=== PATIENT | male | born 1945 | race Caucasian/White ===

== ENCOUNTER → 2016-06-04 | Outpatient (CLI) | payer OTHER ==
[~2016-06-04] MED LIST: ATOR-22 PO; CEFA500C2 PO; CLOP1TAB15 PO; DOCU100C31 PO; LISI-789 PO; MAGN250T8 PO; METF1TAB53 PO; METO25TA3 PO; METO50TA7 PO; MISCCAP80 PO; MULTCAP33 PO; OMEG1CAP71 PO; OXYC-57 PO; PANT40TA PO; SENN8.6T13 PO; TAMS0.4C38 PO
[2016-06-04 12:29] LABS: ESTIMATED AVERAGE GLUCOSE 131 mg/dl; HA1C FLAG Normal (Normal)
== END | disposition home or self-care (01) ==
LOC: C.LAB1850 10:13
PROVIDERS: ATTEND Internal Medicine
DX: E78.00 Pure hypercholesterolemia, unspecified (principal); E11.9 Type 2 diabetes mellitus without complications

== ENCOUNTER → 2016-07-31 | Outpatient (CLI) | payer OTHER ==
[2016-07-31 17:37] LABS: BASO % 0.2 %; BASO ABS # 0.01 K/uL (0-0.2); COMPLETE YES; EOS % 1.1 %; HEMATOCRIT 38.5 % (42-52); IG% 0.4 %; LYMPH % 21.4 %; MEAN CELL VOLUME 91.9 fL (80-100); MEAN CORPUSCULAR HEMOGLOBIN 29.6 pg (25-34); MEAN CORPUSCULAR HGB CONC 32.2 g/dl (32-36); MEAN PLATELET VOLUME 10.2 fL (7.4-10.4); MONO % 13.5 %; NEUT % 63.4 %; PLATELET COUNT 304 K/uL (130-400); RED BLOOD COUNT 4.19 M/uL (4.7-6.1); WHITE BLOOD COUNT 5.62 K/uL (4.8-10.8)
[2016-07-31 17:39] LABS: BLOOD UREA NITROGEN 12 mg/dl (7-18); GLUCOSE 90 mg/dl (70-99)
[2016-07-31 17:40] LABS: ALT/SGPT 12 U/L (12-78); AST/SGOT 13 U/L (15-37); BUN/CREATININE RATIO 13.2 (10-20); CARBON DIOXIDE 28 mmol/L (21-32); CHLORIDE 105 mmol/L (98-107); POTASSIUM 4.1 mmol/L (3.5-5.1); SODIUM 141 mmol/L (136-145)
[2016-07-31 17:44] LABS: ALB/GLOB RATIO 0.7 (0.9-2); ALKALINE PHOSPHATASE 65 U/L (45-117); C-REACTIVE PROTEIN 2.42 mg/dl (0-0.29)
== END | disposition home or self-care (01) ==
LOC: C.LABPBG 14:22
PROVIDERS: ATTEND Internal Medicine Infectious Disease
DX: T84.59XA Infection and inflammatory reaction due to other internal joint prosthesis, initial encounter (principal); Y83.1 Surgical operation with implant of artificial internal device as the cause of abnormal reaction of the patient, or of later complication, without mention of misadventure at the time of the procedure; Z96.659 Presence of unspecified artificial knee joint

== ENCOUNTER → 2016-08-06 | Outpatient (CLI) | payer OTHER ==
[2016-08-06 18:22] LABS: URINE APPEARANCE CLEAR (CLEAR); URINE BILIRUBIN NEG (NEG); URINE COLOR YELLOW; URINE EPITHELIAL CELL AUTO 0-5 /lpf (0-5); URINE NITRITE NEG (NEG); URINE SPECIFIC GRAVITY 1.022 (1.000-1.030); UROBILINOGEN NEG (NEG)
[2016-08-06 18:28] LABS: MANUAL MICROSCOPIC REQUIRED? NO; REVIEW REQ? YES
== END | disposition home or self-care (01) ==
LOC: C.LABPBG 14:13
PROVIDERS: ATTEND Internal Medicine Infectious Disease
DX: N20.0 Calculus of kidney (principal)

== ENCOUNTER → 2016-08-11 | Outpatient (CLI) | payer OTHER ==
--- NOTE | 2016-08-11 10:24 | DIAGNOSTIC IMAGING REPORT ---
RENAL ULTRASOUND HISTORY: R10.9 Right flank pain COMPARISON: Abdomen and pelvis CT 11/02/2015. FINDINGS: Right kidney: 12.4 cm. No hydronephrosis. Moderate cortical thinning/scarring. Multiple cysts with the largest in the upper pole measuring 6 cm. Left kidney: 13.7 cm. No hydronephrosis. Moderate cortical thinning/scarring. Multiple cysts with the largest in the upper pole measuring 8.2 cm. Bladder: No bladder wall thickening. The bilateral ureteral jets were identified. Not well distended. Prostate gland is mildly enlarged. IMPRESSION: No hydronephrosis. Multiple bilateral renal cysts. Electronically signed by: Teo Chandler M.D. 08/11/2016 10:23 AM Dictated Date/Time: 08/11/2016 10:10 AM
== END ==
LOC: C.ULTR 09:34
PROVIDERS: ATTEND Internal Medicine
DX: R10.9 Unspecified abdominal pain (principal)

== ENCOUNTER → 2016-08-15 | Outpatient (CLI) | payer OTHER ==
[2016-08-15 16:40] LABS: BASO % 0.4 %; BASO ABS # 0.03 K/uL (0-0.2); COMPLETE YES; EOS % 1.3 %; HEMATOCRIT 37.4 % (42-52); IG% 0.1 %; LYMPH % 18.8 %; MEAN CELL VOLUME 91.9 fL (80-100); MEAN CORPUSCULAR HGB CONC 32.6 g/dl (32-36); MEAN PLATELET VOLUME 10.9 fL (7.4-10.4); MONO % 11.4 %; PLATELET COUNT 247 K/uL (130-400); RED BLOOD COUNT 4.07 M/uL (4.7-6.1)
== END | disposition home or self-care (01) ==
LOC: C.LABPBG 13:51
PROVIDERS: ATTEND Physician Assistant
DX: R70.0 Elevated erythrocyte sedimentation rate (principal)

== ENCOUNTER 2016-08-30 14:34 | Emergency (ER) | payer OTHER ==
[~2016-08-30] VITALS: Ht 179.1 cm; Wt 95.3 kg
[~2016-08-30 14:34] MED LIST changes: -DOCU100C31 PO; -LISI-789 PO; -MAGN250T8 PO; -METO25TA3 PO; -OMEG1CAP71 PO; +SENN1TAB80 PO; -SENN8.6T13 PO
[2016-08-30 14:41] VITALS: TEMP 37.2; Ht 179.1 cm; Wt 95.3 kg
--- NOTE | 2016-08-30 15:59 | EMERGENCY ROOM VISIT NOTE ---
History Report prepared by Radha: Alfonzo Johnson Under the Supervision of: Dr. Subhash Orozco M.D. First contact with patient: 15:11 Chief Complaint: WRIST PAIN Stated Complaint: L WRIST SWELLING AND PAIN History of Present Illness The patient is a 71 year old male who presents to the Emergency Room with complaints of worsening left wrist swelling beginning three days prior to arrival. He currently rates his discomfort as a 7/10 in severity. The patient associates limited range of movement of left fingers secondary to the pain and swelling and numbness in his left hand fingers with today's symptoms. He states movement worsens his symptoms. The patient notes he had fallen out of a tree as a child, in which, he injured his left wrist. He states the left wrist has bothered him with some activity, but the discomfort had always subsided. The patient denies doing any activity out of the ordinary or repetitive movement. He notes a history of a septic right knee joint status post replacement a year ago. The patient states he sees an infectious disease doctor for high ESR. He notes he is due to see a security guard supervisor. The patient denies a fever, chills, urinary symptoms, and history of gout. 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 A total of 10 systems reviewed and were otherwise negative. Past Medical & Surgical Medical Problems: (1) Hyperlipidemia (2) Kidney stones (3) MA (myocardial infarction) (4) Pre-diabetes (5) septic right TKA (6) Umbilical hernia Surgical Problems: (1) S/p bilateral carpal tunnel release (2) S/P CABG (coronary artery bypass graft) (3) S/P right knee surgery (4) S/P rotator cuff surgery Old medical records were reviewed. Nurse's notes were reviewed and I agree with. Family History Cancer Diabetes mellitus Gallbladder disease Heart disease Hypertension Kidney disease Kidney stones Social History Smoking Status: Never Smoker Alcohol Use: none Drug Use: none Marital Status: Housing Status: lives with family Occupation Status: retired Current/Historical Medications Scheduled Atorvastatin (Lipitor), 20 MG PO QAM Cefadroxil (Duricef), 500 MG PO BID Clopidogrel (Plavix), 75 MG PO DAILY Docusate Sodium (Docusate Sodium), 100 MG PO BID Lisinopril (Zestril), 2.5 MG PO DAILY Magnesium Oxide (Mg Supplement (Magnesium), 250 MG PO BID Metformin Hcl (Glucophage Ext Rel), 1,000 MG PO QAM Metoprolol Succ (Toprol Xl) (Toprol-Xl), 25 MG PO DAILY Multiple Vitamins W/ Minerals (Preservision Areds), 1 CAP PO BID [place] 3 Fatty Acids-[place] 6 Fa ([place] 3-6-9 Complex), 1 CAP PO DAILY Probiotic Product (Probiotic), 1 TAB PO BID Allergies Coded Allergies: Moxifloxacin (Verified Allergy, Intermediate, ?, 12/07/15) Heparin (Verified Adverse Reaction, Intermediate, discolored skin; brown, 12/07/15) Physical Exam Vital Signs Date Time Temp Pulse Resp B/P Pulse Ox O2 Delivery O2 Flow Rate FiO2 08/30/16 18:26 77 20 127/55 98 Room Air 08/30/16 17:18 65 20 136/52 100 Room Air 08/30/16 14:41 37.2 71 18 153/69 96 Room Air Physical Exam General: Non-ill appearing. Older female. HEENT: Normal cephalic atraumatic. Pupils are equal round and reactive to light. Sclerae anicteric. Extraocular movements are intact. Oropharynx is pink with moist mucous membranes. No swelling of the mouth lips or tongue. Neck: Supple with a midline trachea. No meningeal signs or stiffness, no JVD or bruits. No Stridor. Chest: Clear to auscultation bilaterally. No wheezes or rhonchi. No increased work of breathing. Heart: regular rate and rhythm. Abdomen: Soft nontender, nondistended without rebound guarding or rigidity. Extremities: Moderate amount of swelling to the left wrist, minimal pinkish discoloration. Limitation of movement secondary to pain but does have full range of motion. Good capillary refill. Left elbow is normal. No calf tenderness or assymetry Spine/Back. Non tender to palpation. No CVA tenderness Skin: Good turgor without rashes. Neurologic exam: Cranial nerves two through 12 are intact. Motor and sensation are intact and symmetrical throughout. Medical Decision & Procedures ER Provider Diagnostic Interpretation: Radiology results as stated below per my review and radiologist interpretation: LEFT WRIST MIN 3 VIEWS ROUTINE CLINICAL HISTORY: Left wrist pain COMPARISON: None. DISCUSSION: There are advanced arthritic changes present. There is widening of the scapholunate distance. There is ulnar minus variance. There is chondrocalcinosis. There are multiple small bony fragments adjacent to the dorsal aspect of the mid carpus. IMPRESSION: Moderately advanced arthritic change. Chondrocalcinosis. Ulnar minus variance. Probable disruption of the scapholunate ligament. No acute fractures. Electronically signed by: Rahul Baird M.D. 08/30/2016 4:44 PM ULTRASOUND LEFT VENOUS DOPPLER UPR EXT UNILAT CLINICAL HISTORY: Left upper extremity swelling COMPARISON STUDY: No previous studies for comparison. FINDINGS: No intraluminal thrombus was visualized. The internal jugular, subclavian, axillary, cephalic, brachial, basilic, radial, and ulnar veins were patent. There is soft tissue edema within the left shoulder and wrist region. IMPRESSION: No evidence of left upper extremity DVT Electronically signed by: Rahul Baird M.D. 08/30/2016 5:06 PM Laboratory Results 08/30/16 16:20 Red Blood Count 4.03, Mean Corpuscular Volume 89.6, Mean Corpuscular Hemoglobin 29.3, Mean Corpuscular Hemoglobin Concent 32.7, Mean Platelet Volume 9.3, Neutrophils (%) (Auto) 71.6, Lymphocytes (%) (Auto) 14.3, Monocytes (%) (Auto) 13.0, Eosinophils (%) (Auto) 0.9, Basophils (%) (Auto) 0.1, Neutrophils # (Auto ) 5.41, Lymphocytes # (Auto) 1.08, Monocytes # (Auto) 0.98, Eosinophils # (Auto ) 0.07, Basophils # (Auto) 0.01 08/30/16 16:20 Test 08/30/16 16:20 White Blood Count 7.56 K/uL (4.8-10.8) Red Blood Count 4.03 M/uL (4.7-6.1) Hemoglobin 11.8 g/dL (14.0-18.0) Hematocrit 36.1 % (42-52) Mean Corpuscular Volume 89.6 fL (80-100) Mean Corpuscular Hemoglobin 29.3 pg (25-34) Mean Corpuscular Hemoglobin Concent 32.7 g/dl (32-36) Platelet Count 280 K/uL (130-400) Mean Platelet Volume 9.3 fL (7.4-10.4) Neutrophils (%) (Auto) 71.6 % Lymphocytes (%) (Auto) 14.3 % Monocytes (%) (Auto) 13.0 % Eosinophils (%) (Auto) 0.9 % Basophils (%) (Auto) 0.1 % Neutrophils # (Auto) 5.41 K/uL (1.4-6.5) Lymphocytes # (Auto) 1.08 K/uL (1.2-3.4) Monocytes # (Auto) 0.98 K/uL (0.11-0.59) Eosinophils # (Auto) 0.07 K/uL (0-0.5) Basophils # (Auto) 0.01 K/uL (0-0.2) RDW Standard Deviation 52.0 fL (36.4-46.3) RDW Coefficient of Variation 15.9 % (11.5-14.5) Immature Granulocyte % (Auto) 0.1 % Immature Granulocyte # (Auto) 0.01 K/uL (0.00-0.02) Erythrocyte Sedimentation Rate 89 mm/hr (0-14) Anion Gap 8.0 mmol/L (3-11) Est Creatinine Clear Calc Drug Dose 84.5 ml/min Estimated GFR () 96.6 Estimated GFR (Non- 83.3 BUN/Creatinine Ratio 18.5 (10-20) Uric Acid 5.2 mg/dl (2.6-7.2) Calcium Level 9.0 mg/dl (8.5-10.1) Total Bilirubin 0.3 mg/dl (0.2-1) Direct Bilirubin 0.1 mg/dl (0-0.2) Aspartate Amino Transf (AST/SGOT) 14 U/L (15-37) Alanine Aminotransferase (ALT/SGPT) 11 U/L (12-78) Alkaline Phosphatase 68 U/L (45-117) C-Reactive Protein 4.93 mg/dl (0-0.29) Total Protein 7.5 gm/dl (6.4-8.2) Albumin 3.1 gm/dl (3.4-5.0) Lipase 183 U/L (73-393) Laboratory studies as stated above per my review. ED Course 1545: Past medical records reviewed. The patient was evaluated in room C3, and a complete history and physical examination were performed. 1716: Reevaluated the patient at this time, and he is doing well. 173: I spoke to Dr. Jonas [facility] (Orthopedic Surgery) about the patient's case, and he recommended putting the patient in a splint. He can see the patient in the office for further followup. 1810: Upon reevaluation, the patient is doing well. I discussed the results and treatment plan with him. He verbalized agreement of the treatment plan. The patient was discharged home. Medical Decision Differentials include, but are not limited to; arthritis, rheumatologic process , infection, injury, electrolyte or metabolic abnormalities. This patient comes in as described above. He was placed in room C3. He's had some pain and swelling of his wrist for several days. he has no fever or chills or systemic complaints. No numbness or weakness. he does have some pain with movement and some stiffness. IV access was established, x-ray was obtained and multiple blood tests was obtained. He has no elevation of his white count. His sedimentation rate and CRP are elevated however these are elevated chronically. he's been followed for this the CRP is somewhat more elevated however. X-ray shows no acute fracture. He has findings consistent with pseudogout which certainly could explain his symptoms. He has no neurologic deficits or any evidence of compartment syndrome. His wrist is not significantly red or warm. I did discuss case with Dr. Jonas who recommends we immobilized him and they can see him Thursday or Thursday and the patient will use anti-inflammatories like ibuprofen return if: Increasing pain, worsening of symptoms, fever or chills, any new problems or concerns. He is happy with plan and discharged to home. Consults Time Called: 1733 Consulting Physician: Dr. Jonas, [facility] (Orthopedic Surgery) Returned Call: [address] Jonas [facility] (Orthopedic Surgery) about the patient's case, and he recommended putting the patient in a splint. He can see the patient in the office for further followup. Impression Primary Impression: Wrist pain, left Additional Impression: Pseudogout Scribe Attestation The scribe's documentation has been prepared under my direction and personally reviewed by me in its entirety. I confirm that the note above accurately reflects all work, treatment, procedures, and medical decision making performed by me. Departure Information Dispostion Home / Self-Care Referrals Aaron Ge M.D. (PCP) Forms HOME CARE DOCUMENTATION FORM, IMPORTANT VISIT INFORMATION, WORK / SCHOOL INSTRUCTIONS Patient Instructions My [facility] Additional Instructions Rest. Drink plenty of fluids. Use wrist lacer splint. Ice intermittently. Use an anti-inflammatory such as ibuprofen Return if: Increasing pain, fever chills, numbness weakness, worsening symptoms , any new problems or concerns Follow-up with your doctor or orthopedist's/Dr. Jonas on Thursday for recheck. Problem Qualifiers
[2016-08-30] MEDS ORDERED: LISI-789 PO (16:16)
[2016-08-30] MEDS ORDERED: MAGN250T8 PO (16:20)
[2016-08-30] MEDS ORDERED: METO25TA3 PO (16:21)
[2016-08-30] MEDS ORDERED: DOCU100C31 PO (16:23)
[2016-08-30] MEDS ORDERED: OMEG1CAP71 PO (16:24)
[2016-08-30 16:31] LABS: BASO % 0.1 %; BASO ABS # 0.01 K/uL (0-0.2); COMPLETE YES; EOS % 0.9 %; HEMATOCRIT 36.1 % (42-52); IG% 0.1 %; LYMPH % 14.3 %; LYMPH ABS # 1.08 K/uL (1.2-3.4); MEAN CELL VOLUME 89.6 fL (80-100); MEAN CORPUSCULAR HEMOGLOBIN 29.3 pg (25-34); MEAN CORPUSCULAR HGB CONC 32.7 g/dl (32-36); MEAN PLATELET VOLUME 9.3 fL (7.4-10.4); NEUT % 71.6 %; PLATELET COUNT 280 K/uL (130-400); RED BLOOD COUNT 4.03 M/uL (4.7-6.1); WHITE BLOOD COUNT 7.56 K/uL (4.8-10.8)
--- NOTE | 2016-08-30 16:46 | DIAGNOSTIC IMAGING REPORT ---
LEFT WRIST MIN 3 VIEWS ROUTINE CLINICAL HISTORY: Left wrist pain COMPARISON: None. DISCUSSION: There are advanced arthritic changes present. There is widening of the scapholunate distance. There is ulnar minus variance. There is chondrocalcinosis. There are multiple small bony fragments adjacent to the dorsal aspect of the mid carpus. IMPRESSION: Moderately advanced arthritic change. Chondrocalcinosis. Ulnar minus variance. Probable disruption of the scapholunate ligament. No acute fractures. Electronically signed by: Rahul aBird M.D. 08/30/2016 4:44 PM Dictated Date/Time: 08/30/2016 4:42 PM
[2016-08-30 16:55] LABS: BUN/CREATININE RATIO 18.5 (10-20); C-REACTIVE PROTEIN 4.93 mg/dl (0-0.29); CREATININE 0.91 mg/dl (0.60-1.40); URIC ACID 5.2 mg/dl (2.6-7.2)
--- NOTE | 2016-08-30 17:08 | DIAGNOSTIC IMAGING REPORT ---
ULTRASOUND LEFT VENOUS DOPPLER UPR EXT UNILAT CLINICAL HISTORY: Left upper extremity swelling COMPARISON STUDY: No previous studies for comparison. FINDINGS: No intraluminal thrombus was visualized. The internal jugular, subclavian, axillary, cephalic, brachial, basilic, radial, and ulnar veins were patent. There is soft tissue edema within the left shoulder and wrist region. IMPRESSION: No evidence of left upper extremity DVT Electronically signed by: Rahul Baird M.D. 08/30/2016 5:06 PM Dictated Date/Time: 08/30/2016 5:03 PM
[2016-08-30 17:37] LABS: POTASSIUM 4.2 mmol/L (3.5-5.1)
[2016-08-30 18:26] VITALS: BP 127/55; PULSE 77; O2SAT 98
== END 2016-08-30 18:50 | disposition home or self-care (01) ==
LOC: C.EDB 14:36 → C.EDC 18:50
DX: M25.532 Pain in left wrist (principal); M10.9 Gout, unspecified; E78.5 Hyperlipidemia, unspecified; I25.2 Old myocardial infarction; R73.03 Prediabetes; Z87.442 Personal history of urinary calculi; Z95.1 Presence of aortocoronary bypass graft; Z98.890 Other specified postprocedural states; Z79.84 Long term (current) use of oral hypoglycemic drugs; Z79.899 Other long term (current) drug therapy; Z88.8 Allergy status to other drugs, medicaments and biological substances; Z80.9 Family history of malignant neoplasm, unspecified; Z83.3 Family history of diabetes mellitus; Z83.79 Family history of other diseases of the digestive system; Z82.49 Family history of ischemic heart disease and other diseases of the circulatory system; Z84.1 Family history of disorders of kidney and ureter

== ENCOUNTER → 2016-09-22 | Outpatient (CLI) | payer OTHER ==
[~2016-09-22] MED LIST changes: +DOCU100C31 PO; +LISI-789 PO; +MAGN250T8 PO; +METO25TA3 PO; -METO50TA7 PO; +OMEG1CAP71 PO; -OXYC-57 PO; -PANT40TA PO; -SENN1TAB80 PO; -TAMS0.4C38 PO
--- NOTE | 2016-09-22 11:47 | DIAGNOSTIC IMAGING REPORT ---
LEFT HAND MIN 3 VIEWS ROUTINE CLINICAL HISTORY: 0.0 Elevated erythrocyte sedimentation rateM11.232 Chondrocalcin pain COMPARISON: None. DISCUSSION: Considerable degenerative change of all major osseous structures. Near complete loss of the radial ulnar articulation. Chondrocalcinosis primarily of the triangular fibrocartilage. There is moderate degenerative change of the interphalangeal joints throughout. Significant degenerative change first carpometacarpal joint. There is no evidence for soft tissue swelling. IMPRESSION: Considerable degenerative change. Mild chondrocalcinosis. Electronically signed by: Damian Valero M.D. 09/22/2016 11:46 AM Dictated Date/Time: 09/22/2016 11:45 AM
--- NOTE | 2016-09-22 11:49 | DIAGNOSTIC IMAGING REPORT ---
RIGHT HAND MIN 3 VIEWS ROUTINE CLINICAL HISTORY: Chondrocalcinosis. Elevated ESR. COMPARISON: None. DISCUSSION: There are mild osteoarthritic type changes. There are small particular calcifications at the level the distal interphalangeal joint index finger. Osteoarthritic changes are most severe within the wrist. There is narrowing of the radiocarpal joint. Degenerative changes are present level the first carpal metacarpal joint. There is mild ulnar minus variance. There is chondrocalcinosis. There is a corticated bony fragment located at the dorsal aspect of the radiocarpal joint. This is felt to be old. IMPRESSION: 1. Ulnar minus variance. Chondrocalcinosis. 2. Degenerative changes most pronounced within the wrist. 3. No acute fractures. No evidence of erosive disease. Electronically signed by: Rahul Baird M.D. 09/22/2016 11:48 AM Dictated Date/Time: 09/22/2016 11:46 AM
[2016-09-22 12:13] LABS: BASO % 0.1 %; BASO ABS # 0.01 K/uL (0-0.2); COMPLETE YES; EOS % 0.7 %; HEMATOCRIT 39.8 % (42-52); IG% 0.1 %; LYMPH ABS # 1.63 K/uL (1.2-3.4); MEAN CELL VOLUME 93.2 fL (80-100); MEAN CORPUSCULAR HEMOGLOBIN 29.7 pg (25-34); MEAN CORPUSCULAR HGB CONC 31.9 g/dl (32-36); MEAN PLATELET VOLUME 9.8 fL (7.4-10.4); MONO % 8.4 %; NEUT % 66.7 %; PLATELET COUNT 313 K/uL (130-400); RED BLOOD COUNT 4.27 M/uL (4.7-6.1); WHITE BLOOD COUNT 6.78 K/uL (4.8-10.8)
[2016-09-22 12:36] LABS: ESTIMATED AVERAGE GLUCOSE 131 mg/dl; HA1C FLAG Normal (Normal)
[2016-09-22 12:58] LABS: BLOOD UREA NITROGEN 17 mg/dl (7-18); BUN/CREATININE RATIO 20.7 (10-20); CALCIUM 9.5 mg/dl (8.5-10.1); CARBON DIOXIDE 26 mmol/L (21-32); CHLORIDE 107 mmol/L (98-107); CREATININE 0.84 mg/dl (0.60-1.40); GLUCOSE 103 mg/dl (70-99); POTASSIUM 4.4 mmol/L (3.5-5.1); SODIUM 141 mmol/L (136-145)
[2016-09-24 20:18] LABS: ALBUMIN 3.3 G/DL (3.8-4.8); ANTI-CENTROMERE AB <1.0 NEG AI (<1.0 NEG); ANTI-SS-A <1.0 NEG AI (<1.0 NEG); ANTI-SS-B <1.0 NEG AI (<1.0 NEG); DNA ds CRITHIDIA NEGATIVE (NEGATIVE); GAMMA GLOBULIN 1.4 G/DL (0.8-1.7); Sm Antibody <1.0 NEG AI (<1.0 NEG); TOTAL PROTEIN 7.1 G/DL (6.2-8.3)
[2016-09-26 10:16] LABS: ANA TITER 1:40 TITER (<1:40)
== END | disposition home or self-care (01) ==
LOC: C.RAD1850 11:07
PROVIDERS: ATTEND Internal Medicine Rheumatology
DX: M11.232 Other chondrocalcinosis, left wrist (principal); R70.0 Elevated erythrocyte sedimentation rate; R76.8 Other specified abnormal immunological findings in serum; E11.9 Type 2 diabetes mellitus without complications; D64.9 Anemia, unspecified; M11.241 Other chondrocalcinosis, right hand

== ENCOUNTER → 2017-02-17 | Outpatient (CLI) | payer OTHER ==
[2017-02-17 11:57] LABS: BASO % 0.2 %; BASO ABS # 0.01 K/uL (0-0.2); COMPLETE YES; EOS % 1.4 %; HEMATOCRIT 37.7 % (42-52); IG% 0.2 %; LYMPH ABS # 0.96 K/uL (1.2-3.4); MEAN CELL VOLUME 91.5 fL (80-100); MEAN CORPUSCULAR HEMOGLOBIN 29.4 pg (25-34); MEAN CORPUSCULAR HGB CONC 32.1 g/dl (32-36); MEAN PLATELET VOLUME 10.3 fL (7.4-10.4); MONO % 8.2 %; PLATELET COUNT 291 K/uL (130-400); RED BLOOD COUNT 4.12 M/uL (4.7-6.1); WHITE BLOOD COUNT 5.64 K/uL (4.8-10.8)
[2017-02-17 12:13] LABS: ALT/SGPT 9 U/L (12-78); BLOOD UREA NITROGEN 13 mg/dl (7-18); BUN/CREATININE RATIO 15.3 (10-20); CALCIUM 9.1 mg/dl (8.5-10.1); CARBON DIOXIDE 25 mmol/L (21-32); CHLORIDE 109 mmol/L (98-107); CHOLESTEROL 145 mg/dl (0-200); CREATININE 0.86 mg/dl (0.60-1.40); GLUCOSE 104 mg/dl (70-99); POTASSIUM 4.4 mmol/L (3.5-5.1); SODIUM 140 mmol/L (136-145)
[2017-02-17 12:17] LABS: AST/SGOT 13 U/L (15-37); CHOLESTEROL/HDL RATIO 2.9; ESTIMATED AVERAGE GLUCOSE 134 mg/dl; FERRITIN 270.4 ng/ml (8.0-388.0); HA1C FLAG Normal (Normal); HDL CHOLESTEROL 50 mg/dl; LDL CHOLESTEROL CALCULATED 82 mg/dl; TOTAL IRON BINDING CAPACITY 156 mcg/dl (250-450); TRIGLYCERIDES 64 mg/dl (0-150); VERY LOW DENSITY LIPOPROT CALC 13 mg/dl
[2017-02-17 12:28] LABS: RATIO 4.4 mcg/mg (0-30.0)
== END | disposition home or self-care (01) ==
LOC: C.LABPBG 10:12
PROVIDERS: ATTEND Internal Medicine
DX: D64.9 Anemia, unspecified (principal); I10 Essential (primary) hypertension; R42 Dizziness and giddiness; I25.10 Atherosclerotic heart disease of native coronary artery without angina pectoris; E11.9 Type 2 diabetes mellitus without complications; E78.00 Pure hypercholesterolemia, unspecified

== ENCOUNTER → 2017-02-19 | Outpatient (CLI) | payer OTHER ==
[~2017-02-19] MED LIST changes: +GADAVIST IV PRN
--- NOTE | 2017-02-19 16:50 | DIAGNOSTIC IMAGING REPORT ---
BRAIN COMBO FOR IAC CLINICAL HISTORY: H90.3 Sensorineural hearing loss (SNHL) of both ears left greater hearing loss TECHNIQUE: Multiaxial MRI acquisition COMPARISON STUDY: None FINDINGS: Moderate mucosal thickening of the mastoid air cells bilaterally. Remaining sinuses are considered clear. Signal characteristics of the cerebellar as well as cerebral hemispheres are within normal limits. Ventricular system is midline. No significant postcontrast enhancement. Internal artery canals are symmetric. IMPRESSION: 1. Negative MRI brain. 2. Negative MRI internal auditory canals. 3. Moderate mucosal thickening of the mastoid air cells bilaterally The above report was generated using voice recognition software. It may contain grammatical, syntax or spelling errors. Electronically signed by: Damian Valero M.D. 02/19/2017 4:49 PM Dictated Date/Time: 02/19/2017 4:44 PM
== END | disposition home or self-care (01) ==
LOC: C.MRI 14:54
PROVIDERS: ATTEND Physician Assistant
DX: H90.3 Sensorineural hearing loss, bilateral (principal); H74.8X3 Other specified disorders of middle ear and mastoid, bilateral

== ENCOUNTER → 2017-07-10 | Outpatient (CLI) | payer OTHER ==
[~2017-07-10] MED LIST changes: -GADAVIST IV PRN
[2017-07-10 12:18] LABS: HEMATOCRIT 38.3 % (42-52); HEMOGLOBIN 12.5 g/dL (14.0-18.0); MEAN CELL VOLUME 91.8 fL (80-100); MEAN CORPUSCULAR HGB CONC 32.6 g/dl (32-36); MEAN PLATELET VOLUME 9.5 fL (7.4-10.4); PLATELET COUNT 294 K/uL (130-400); RED CELL DISTRIBUTION WIDTH CV 15.7 % (11.5-14.5); RED CELL DISTRIBUTION WIDTH SD 52.9 fL (36.4-46.3); WHITE BLOOD COUNT 5.78 K/uL (4.8-10.8)
[2017-07-10 12:29] LABS: ALT/SGPT 12 U/L (12-78); AST/SGOT 14 U/L (15-37); BLOOD UREA NITROGEN 13 mg/dl (7-18); CALCIUM 9.3 mg/dl (8.5-10.1); CARBON DIOXIDE 26 mmol/L (21-32); CHOLESTEROL 139 mg/dl (0-200); CREATININE 0.91 mg/dl (0.60-1.40); GLUCOSE 106 mg/dl (70-99); POTASSIUM 4.3 mmol/L (3.5-5.1); SODIUM 139 mmol/L (136-145)
[2017-07-10 12:35] LABS: LDL CHOLESTEROL CALCULATED 79 mg/dl
== END | disposition home or self-care (01) ==
LOC: C.LAB1850 10:21
PROVIDERS: ATTEND Internal Medicine
DX: E11.9 Type 2 diabetes mellitus without complications (principal); D64.9 Anemia, unspecified; I25.10 Atherosclerotic heart disease of native coronary artery without angina pectoris; I10 Essential (primary) hypertension; E78.00 Pure hypercholesterolemia, unspecified

== ENCOUNTER → 2017-08-21 | Day surgery (SDC) | payer OTHER ==
[2017-08-13 09:15] VITALS: Ht 177.8 cm; Wt 86.4 kg
[~2017-08-21] VITALS: Ht 177.8 cm; Wt 86.4 kg
[~2017-08-21] MED LIST changes: +B-CO1TAB53 PO; -DOCU100C31 PO; +LIDOCAINE HCL 2% 2 ML VIAL (20MG/ML) ONE; +MAGN1TAB16 PO; -MAGN250T8 PO; -OMEG1CAP71 PO; +PROPOFOL IV EMULSION 10 MG/ML 20 ML VIAL IV ONE; +SENNTAB23 PO; +SODIUM CHLORIDE 0.9% 500ML 500 ML IV ONE
--- NOTE | 2017-08-21 11:49 | Endo History and Physical ---
History & Physical Date of Service: Aug 21, 2017. Chief Complaint: anemia Referring Physician: Dr. Aaron Ge History of Present Illness 72 yo CM who presents for colonoscopy secondary to anemia. Past Medical History Diabetes, Angioplasty/Stent, High Cholesterol, Heart Disease, [place] Past Surgical History Hx Cardiac Surgery: Yes (HEART CATHS X3, STENT X1) Hx Internal Defibrillator: No Hx Pacemaker: No Hx Abdominal Surgery: Yes (UMBILICAL HERNIA REPAIR X3) Hx of Implantable Prosthesis: No Hx Post-Op Nausea and Vomiting: No Hx Cancer Surgery: No Hx Thoracic Surgery: No Hx Orthopedic: Yes (LT/RT TKA, LT ACHILLES TENDON REPAIR, LT/RT RCR, LT/RT CTR, LOW BACK SURGERY) Hx Urinary Tract Surgery: Yes (LITHOTRIPSY X2) Family History None Social History Smoking Status: Never Smoker Hx Substance Use: No Hx Alcohol Use: No Allergies Coded Allergies: Moxifloxacin (Verified Allergy, Intermediate, RASH, 08/13/17) Heparin (Verified Adverse Reaction, Intermediate, discolored skin; brown, 08/13/17) Current Medications Reported Home Medications Medications Dose Route/Sig Max Daily Dose Days Date Category Super B-Complex (B-Complex W/Biotin & Folic Aci) 1 Tab Tab 1 Tab PO BID 08/13/17 Reported Stool Softener (Sennosides-Docusate Sodium) 1 Tab Tab 1 Tab PO BID 08/13/17 Reported Chelated Magnesium (Magnesium) 100 Mg Tab 1 Tab PO QAM 08/13/17 Reported Toprol-Xl (Metoprolol Succinate) 25 Mg Tabcr 25 Mg PO HS 08/30/16 Reported Zestril (Lisinopril) 2.5 Mg Tab 2.5 Mg PO QAM 08/30/16 Reported Plavix (Clopidogrel Bisulfate) 75 Mg Tab 75 Mg PO QAM 12/07/15 Reported Duricef (Cefadroxil) 500 Mg Cap 500 Mg PO QAM 11/02/15 Reported Probiotic (Probiotic Product) 1 Cap Cap 1 Tab PO BID 10/30/15 Reported Preservision Areds (Multiple Vitamins W/ Minerals) 1 Cap Cap 1 Cap PO BID 09/17/15 Reported Glucophage Ext Rel (Metformin Hcl) 1,000 Mg Tab 1,000 Mg PO BID 07/31/15 Reported Lipitor (Atorvastatin Calcium) 20 Mg Tab 20 Mg PO QPM 12/07/14 Reported Vital Signs Weight (Kilograms): 86.36 Height (Feet): 5 Height (Inches): 10 Date Time Temp Pulse Resp B/P (MAP) Pulse Ox O2 Delivery O2 Flow Rate FiO2 08/21/17 11:36 36.5 77 18 160/69 (99) 98 Room Air Physical Exam General Appearance: WD/WN, no apparent distress Respiratory/Chest: Auscultation: breath sounds normal Cardiovascular: Heart Auscultation: RRR Abdomen: Bowel Sounds: normal Inspection & Palpation: soft, non-distended, no tenderness, guarding & rebound Assessment and Plan Assessment: 72 yo CM who presents for colonoscopy secondary to anemia. Plan: Proceed with colonoscopy.
--- NOTE | 2017-08-21 12:48 | Discharge Instructions ---
Endoscopy Patient Instructions Date / Procedure(s) Performed Aug 21, 2017. Colonoscopy Allergy Information Coded Allergies: Moxifloxacin (Verified Allergy, Intermediate, RASH, 08/13/17) Heparin (Verified Adverse Reaction, Intermediate, discolored skin; brown, 08/13/17) Discharge Date / Findings Aug 21, 2017. Colon polyps Internal hemorrhoids Medication Instructions Stopped Medication(s): stopped Glucophage 48 hrs ago,last Plavix yesterday OK to resume all medications today as prescribed Reported Home Medications Medications Dose Route/Sig Max Daily Dose Days Date Category Super B-Complex (B-Complex W/Biotin & Folic Aci) 1 Tab Tab 1 Tab PO BID 08/13/17 Reported Stool Softener (Sennosides-Docusate Sodium) 1 Tab Tab 1 Tab PO BID 08/13/17 Reported Chelated Magnesium (Magnesium) 100 Mg Tab 1 Tab PO QAM 08/13/17 Reported Toprol-Xl (Metoprolol Succinate) 25 Mg Tabcr 25 Mg PO HS 08/30/16 Reported Zestril (Lisinopril) 2.5 Mg Tab 2.5 Mg PO QAM 08/30/16 Reported Plavix (Clopidogrel Bisulfate) 75 Mg Tab 75 Mg PO QAM 12/07/15 Reported Duricef (Cefadroxil) 500 Mg Cap 500 Mg PO QAM 11/02/15 Reported Probiotic (Probiotic Product) 1 Cap Cap 1 Tab PO BID 10/30/15 Reported Preservision Areds (Multiple Vitamins W/ Minerals) 1 Cap Cap 1 Cap PO BID 09/17/15 Reported Glucophage Ext Rel (Metformin Hcl) 1,000 Mg Tab 1,000 Mg PO BID 07/31/15 Reported Lipitor (Atorvastatin Calcium) 20 Mg Tab 20 Mg PO QPM 12/07/14 Reported Provider Instructions Activity Restrictions - No exercising or heavy lifting for 24 hours. - Do not drink alcohol the day of the procedure. - Do not drive a car or operate machinery until the day after the procedure. - Do not make any important decisions or sign important papers in 24 hours after the procedure. Following Day: - Return to full activity which may include returning to work/school. Diet Start your diet with liquids and light foods (jello, soup, juice, toast). Then eat your usual diet if not nauseated. Treatment For Common After Affects For mild abdominal pain, bloating, or excessive gas: - Rest - Eat lightly - Lie on right side Follow-Up Information Follow-up with Dr. Aaron Ge as scheduled Anesthesia Information What You Should Know You have had a procedure that required some medicine to reduce anxiety and discomfort. This treatment is called moderate sedation. After receiving the treatment, you may be sleepy, but you will be able to breathe on your own. The effects of the treatment may last for several hours. Follow these instructions along with Activity/Diet recommendations noted above: * Do NOT do anything where dizziness or clumsiness would be dangerous. * Rest quietly at home today, then you can be up and about tomorrow. * Have a responsible person stay with you the rest of today. * You may have had an I.V. today. If so, you may take the dressing off later today. Recommendations Call your doctor if: * Trouble breathing * Continuous vomiting for more than 24 hours * Temperature above 101 degrees * Severe abdominal pain or bloating * Pain not relieved by pain medicine ordered * There is increased drainage or redness from any incision * A large amount of rectal bleeding greater than 2-3 tablespoons. (If you had a polyp/s removed or have hemorrhoids, a small amount of blood - from the rectum is to be expected.) * You have any unanswered questions or concerns. IN THE EVENT OF A SERIOUS EMERGENCY, GO TO THE NEAREST EMERGENCY ROOM Your discharge instructions were prepared by provider Guanaco Nelson. Patient Instructions Signature Page Rajesh Bird Patient (or Guardian) Signature/Date: I have read and understand the instructions given to me by my caregivers. Caregiver/RN/Doctor Signature/Date: The above-named patient and/or guardian has received patient instructions on this date. + Original Patient Signature Page (only) stays with chart. Please make copy for patient.
--- NOTE | 2017-08-21 12:56 | GI REPORT ---
Procedure Date: 08/21/2017 12:23 PM Procedure: Colonoscopy Indications: High risk colon cancer surveillance: Personal history of colonic polyps Medicines: Monitored Anesthesia Care Complications: No immediate complications. Estimated Blood Loss: Estimated blood loss: none. Procedure: Pre-Anesthesia Assessment: - Prior to the procedure, a History and Physical was performed, and patient medications and allergies were reviewed. The patient's tolerance of previous anesthesia was also reviewed. The risks and benefits of the procedure and the sedation options and risks were discussed with the patient. All questions were answered, and informed consent was obtained. Prior Anticoagulants: The patient has taken Plavix (clopidogrel), last dose was 1 day prior to procedure. ASA Grade Assessment: III - A patient with severe systemic disease. After reviewing the risks and benefits, the patient was deemed in satisfactory condition to undergo the procedure. After I obtained informed consent, the scope was passed under direct vision. Throughout the procedure, the patient's blood pressure, pulse, and oxygen saturations were monitored continuously. The scope was introduced through the anus and advanced to the terminal ileum. The colonoscopy was performed without difficulty. The patient tolerated the procedure well. The quality of the bowel preparation was good. The terminal ileum, the appendiceal orifice and the rectum were photographed. Findings: The perianal and digital rectal examinations were normal. Five sessile polyps were found in the transverse colon and ascending colon. The polyps were 4 to 7 mm in size. These polyps were removed with a hot snare. Resection and retrieval were complete. Non-bleeding internal hemorrhoids were found during retroflexion. The hemorrhoids were small. Impression: - Five 4 to 7 mm polyps in the transverse colon and in the ascending colon, removed with a hot snare. Resected and retrieved. - Non-bleeding internal hemorrhoids. Recommendation: - Resume previous diet. - Continue present medications. - Repeat colonoscopy for surveillance based on pathology results. - Return to primary care physician as previously scheduled. Guanaco Nelson, DO 08/21/2017 12:56:08 PM This report has been signed electronically. Note Initiated On: 08/21/2017 12:23 PM I attest to the content of the Intraoperative Record and orders documented therein, exceptions below
[2017-08-21 13:15] VITALS: BP 156/85; PULSE 72; O2SAT 99
--- NOTE | 2017-08-21 13:33 | Anesthesiology Progress Note ---
Anesthesia Post Op Note Date & Time Aug 21, 2017 at 13:33 Vital Signs Pain Intensity: 0 Vital Signs Past 12 Hours Date Time Temp Pulse Resp B/P (MAP) Pulse Ox O2 Delivery O2 Flow Rate FiO2 08/21/17 13:05 70 18 135/69 (91) 99 Room Air 08/21/17 12:50 70 18 96/71 (79) 97 Room Air 08/21/17 11:36 36.5 77 18 160/69 (99) 98 Room Air Notes Mental Status: alert / awake / arousable, participated in evaluation Pt Amnestic to Procedure: Yes Nausea / Vomiting: adequately controlled Pain: adequately controlled Airway Patency, RR, SpO2: stable & adequate BP & HR: stable & adequate Hydration State: stable & adequate Anesthetic Complications: no major complications apparent
== END | disposition home or self-care (01) ==
LOC: C.GI 11:01
PROVIDERS: ATTEND Internal Medicine
DX: D64.9 Anemia, unspecified (principal); D12.2 Benign neoplasm of ascending colon; D12.3 Benign neoplasm of transverse colon; K64.8 Other hemorrhoids; Z86.010 Personal history of colon polyps; I25.2 Old myocardial infarction; I10 Essential (primary) hypertension; M19.90 Unspecified osteoarthritis, unspecified site; E11.9 Type 2 diabetes mellitus without complications; Z98.890 Other specified postprocedural states; Z96.653 Presence of artificial knee joint, bilateral

== ENCOUNTER 2018-08-17 11:12 | Inpatient (IN) ==
--- NOTE | 2018-08-17 11:36 | XRay Report ---
XR chest 1V portable CLINICAL HISTORY: Atypical chest pain COMPARISON STUDY: August 2015 FINDINGS: The left-sided PICC catheter has been removed. The heart is borderline enlarged. There is n o failure. There is no focal pulmonary consolidation. There is minor basilar sagittal thickening/atel ectasis. There are no significant pleural effusions.[ IMPRESSION: No active disease in the chest. Electronically signed by: Rahul Baird M.D. 08/17/2018 11:35 AM
[2018-08-17 12:02] LABS: Basophils # (auto) 0.01 K/uL (0-0.2); Basophils % (auto) 0.1 %; Eosinophils # (auto) 0.17 K/uL (0-0.5); Eosinophils % (auto) 2.3 %; Hematocrit (blood only) 38.3 % (42-52); Hemoglobin 12.7 g/dL (14.0-18.0); Immature Granulocytes # (auto) 0.02 K/uL (0.00-0.02); Immature Granulocytes % (auto) 0.3 %; Lymphocytes % (auto) 20.6 %; Mean Corpuscular Hgb Conc 33.2 g/dL (32-36); Mean Corpuscular Volume 93.4 fL (80-100); Mean Platelet Volume 9.7 fL (7.4-10.4); Monocytes # (auto) 0.84 K/uL (0.11-0.59); Monocytes % (auto) 11.5 %; Neutrophils # (auto) 4.74 K/uL (1.4-6.5); Neutrophils % (auto) 65.2 %; Platelet Count 265 K/uL (130-400); RDW Coefficient of Variation 15.3 % (11.5-14.5); RDW Standard Deviation 51.8 fL (36.4-46.3); White Blood Count 7.28 K/uL (4.8-10.8)
--- NOTE | 2018-08-17 12:04 | Emergency Department Note ---
Entered by Chalino Singh acting as a scribe for History of Present Illness General Chief complaint: Groin Pain Stated complaint: GROIN PAIN Time Seen by Provider: 08/17/18 11:19 Source: patient Limitations: no limitations History of Present Illness Provider complaint: RLQ/Right groin abdominal pain Onset (ago): month(s) (5) Location: abdomen (RLQ) Radiation: non-radiation Pain Consistency: + constant and + other (worsening) Maximum Pain Intensity: 10 Quality: + burning and + aching Exacerbated By: + eating and + movement (lifting/moving around) Associated symptoms: no nausea/vomiting The patient is a 73 year old male who presents to the Emergency Room after referral from Dr. Lara - General Surgery for continued abdominal pain. The patient states that he has been experiencing pain to the right lower abdominal quadrant and right groin for about the past 5 months, since this past Fall. The patient describes his pain as an "achey" and "burning" sensation, that does not radiate. There is no radiation of the pain into his testicles. The pain is w orsened with lifting, moving, and eating certain foods and is improved by sitting and relaxing. He denies any associated nausea or vomiting. The patient has a history of 3 previous hernia surgeries as well as a cholecystectomy. The patient was here in the ED for these symptoms a short time ago and was referred to Dr. Lara. Dr. Lara referred him back to the ED today for further imaging of the abdomen. Home Medications Home Medications Medication Instructions Recorded Confirmed Type PreserVision AREDS-2 1 tab PO BID 06/28/18 08/17/18 History atorvastatin 20 mg PO QPM 06/28/18 08/17/18 History cefadroxil 500 mg PO QAM 06/28/18 08/17/18 History cholecalciferol (vitamin D3) 1,000 unit PO BID 06/28/18 08/17/18 History [Vitamin D3] clopidogrel 75 mg PO QAM 06/28/18 08/17/18 History cyanocobalamin (vitamin B-12) 1,000 mcg PO QAM 06/28/18 08/17/18 History docusate sodium [Stool Softener] 250 mg PO BID 06/28/18 08/17/18 History lisinopril 2.5 mg PO QAM 06/28/18 08/17/18 History metformin 1,000 mg PO BID 06/28/18 08/17/18 History metoprolol succinate 25 mg PO HS 06/28/18 08/17/18 History hydrocodone-acetaminophen [[place]] 0.5 tab PO Q6H PRN #10 tab 08/15/18 08/17/18 Rx Allergies Allergy/AdvReac Type Severity Reaction Status Date / Time moxifloxacin Allergy Intermediate RASH Verified 08/17/18 12:18 heparin AdvReac Intermediate discolored Verified 08/17/18 12:18 skin; brown Past Med/Surg History Medical History CAD (coronary artery disease) KIMBERLY X 1 TO RCA (2006) Diabetes mellitus, type 2 NIDDM Hx of sepsis 2016 2/2 RIGHT KNEE INFECTION S/P SURGERY Hyperlipidemia Hypertension Kidney stones Myocardial Infarction 2006 Osteoarthritis Surgical History History of cardiac cath KIMBERLY X 1 TO RCA (2006) History of colonoscopy Colonoscopy= 08/21/17= MAC sedation at [facility] History of herniorrhaphy UMBILICAL X 3 History of lithotripsy Left ESWL= 12/07/15= LMA#5 at [facility] History of repair of rotator cuff RT/LEFT History of tooth extraction History of total knee replacement B/L; RIGHT TKA REVISION 2/2 SEPSIS Family History Son Family history of diabetes mellitus Social History Preferred Language: Indian Communication Ability: Effective 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 and A total of 10 systems reviewed and were otherwise negative Physical Exam Vital Signs Vital Signs - 24 hr 08/17/18 11:13 08/17/18 13:00 08/17/18 15:08 Temperature 36.5 C Temperature Source Oral Sepsis Recent Fever Within 48 Hours No Sepsis New/Unexplained Change in Mental Status No Sepsis Action Taken by Nursing No Action Required Pulse Rate 52 L Pulse Rate [Finger] 55 L 58 L Pulse Rate [Left Apical] Pulse Rhythm [Finger] Regular Regular Pulse Rhythm [Left Apical] Pulse Strength [Finger] Normal Normal Pulse Strength [Left Apical] Respiratory Rate 18 16 16 Respiratory Effort / Characteristics Non-Labored Spontaneous Non-Labored Spontaneous Respiratory Depth Normal Normal Normal Respiratory Pattern Regular Regular Blood Pressure 146/75 H Blood Pressure [Left Arm] Blood Pressure [Right Arm] 177/73 H 162/58 H Blood Pressure Mean 98 Blood Pressure Mean [Left Arm] Blood Pressure Mean [Right Arm] 107 92 Blood Pressure Position [Left Arm] Blood Pressure Position [Right Arm] Lying Lying Pulse Oximetry 100 98 100 Oxygen Delivery Method Room Air Room Air Room Air 08/17/18 16:23 08/17/18 16:30 08/17/18 19:39 Temperature 36.4 C L Temperature Source Oral Sepsis Recent Fever Within 48 Hours Sepsis New/Unexplained Change in Mental Status Sepsis Action Taken by Nursing Pulse Rate 58 L Pulse Rate [Finger] 59 L 57 L Pulse Rate [Left Apical] Pulse Rhythm [Finger] Pulse Rhythm [Left Apical] Pulse Strength [Finger] Pulse Strength [Left Apical] Respiratory Rate 18 18 Respiratory Effort / Characteristics Non-Labored Spontaneous Respiratory Depth Normal Respiratory Pattern Regular Blood Pressure 140/50 L Blood Pressure [Left Arm] Blood Pressure [Right Arm] 128/72 116/47 L Blood Pressure Mean Blood Pressure Mean [Left Arm] Blood Pressure Mean [Right Arm] 90 70 Blood Pressure Position [Left Arm] Blood Pressure Position [Right Arm] Sitting Lying Pulse Oximetry 99 98 Oxygen Delivery Method Room Air Room Air 08/17/18 21:16 08/17/18 22:50 08/18/18 07:55 Temperature 36.4 C L 36.4 C L Temperature Source Oral Oral Sepsis Recent Fever Within 48 Hours Sepsis New/Unexplained Change in Mental Status Sepsis Action Taken by Nursing Pulse Rate Pulse Rate [Finger] 60 Pulse Rate [Left Apical] 54 L Pulse Rhythm [Finger] Pulse Rhythm [Left Apical] Regular Pulse Strength [Finger] Pulse Strength [Left Apical] Normal Respiratory Rate 16 20 Respiratory Effort / Characteristics Non-Labored Spontaneous Respiratory Depth Normal Respiratory Pattern Regular Blood Pressure Blood Pressure [Left Arm] 122/56 L 145/74 H 126/68 Blood Pressure [Right Arm] Blood Pressure Mean Blood Pressure Mean [Left Arm] 78 97 87 Blood Pressure Mean [Right Arm] Blood Pressure Position [Left Arm] Lying Lying Lying Blood Pressure Position [Right Arm] Pulse Oximetry 97 98 Oxygen Delivery Method Room Air Room Air 08/18/18 08:10 08/18/18 08:30 Temperature Temperature Source Sepsis Recent Fever Within 48 Hours Sepsis New/Unexplained Change in Mental Status Sepsis Action Taken by Nursing Pulse Rate Pulse Rate [Finger] Pulse Rate [Left Apical] Pulse Rhythm [Finger] Pulse Rhythm [Left Apical] Pulse Strength [Finger] Pulse Strength [Left Apical] Respiratory Rate Respiratory Effort / Characteristics Non-Labored Spontaneous Non-Labored Respiratory Depth Normal Normal Respiratory Pattern Regular Regular Blood Pressure Blood Pressure [Left Arm] Blood Pressure [Right Arm] Blood Pressure Mean Blood Pressure Mean [Left Arm] Blood Pressure Mean [Right Arm] Blood Pressure Position [Left Arm] Blood Pressure Position [Right Arm] Pulse Oximetry Oxygen Delivery Method Room Air Room Air GENERAL: Patient is awake alert in no acute distress patient is resting comfortably and showing no signs of anxiety EYES: The conjunctivae are clear. The pupils are round and reactive. EARS, NOSE, MOUTH AND THROAT: The nose is without any evidence of any deformity. Mucous membranes are moist tongue is midline NECK: The neck is nontender and supple. RESPIRATORY: Normal respiratory effort is noted there is no evidence of wheezing rhonchi or rales CARDIOVASCULAR: Regular rate and rhythm noted there no murmurs rubs or gallops normal S1 normal S2 GASTROINTESTINAL: Abdomen is mildly distended but soft. There is left lower quadrant tenderness to palpation which is mild. There is right lower quadrant tenderness to palpation which is significant. There is significant tenderness in the right groin with swelling. This could be consistent with the patient's reported history of hernia. : Testicles were descended and nontender bilaterally. Circumcised male genitalia was noted. MUSCULOSKELETAL/EXTREMITIES: There is no evidence of gross deformity full range of motion is noted in the hips and shoulders SKIN: There is no obvious evidence of any rash. There are no petechiae, pallor or cyanosis noted. NEUROLOGIC: Patient is awake alert and oriented x3. Course 1139: Past medical records reviewed. The patient was evaluated in room D1B, and a complete history and physical examination were performed. 1448: I updated the patient at this time. 1449: I discussed the case with Dr. Lara- General Surgery. He suggests admitting the patient to medicine. 1505: I reviewed the patient's case with Dr. Avendano [facility] Hospitalist. She will evaluate the patient for further management. Administered Medications Atorvastatin Calcium (Lipitor) 20 mg PO QPM TITO Stop: 09/16/18 20:59 Last Admin: 08/17/18 20:45 Dose: 20 mg Documented by: [id number] Docusate Calcium (Surfak) 240 mg PO BID TITO Stop: 09/16/18 20:59 Last Admin: 08/17/18 22:21 Dose: Not Given Documented by: [id number] Piperacillin Sod/Tazobactam (Sod 3.375 gm/ Dextrose) 115 mls @ 28.75 mls/hr IV Q8H TITO; Protocol Stop: 08/27/18 19:59 Last Infusion: 08/18/18 08:37 Dose: 0 mls/hr Documented by: [id number] Infusion: 08/18/18 06:11 Dose: 28.8 mls/hr Documented by: [id number] Admin: 08/18/18 04:37 Dose: 28.8 mls/hr Documented by: [id number] Infusion: 08/18/18 01:15 Dose: 0 mls/hr Documented by: [id number] Admin: 08/17/18 20:43 Dose: 28.8 mls/hr Documented by: [id number] Lactated Ringer's (Lr) 1,000 mls @ 125 mls/hr IV .Q8H TITO Stop: 08/18/18 09:59 Last Infusion: 08/18/18 09:00 Dose: 0 mls/hr Documented by: [id number] Infusion: 08/18/18 06:11 Dose: 125 mls/hr Documented by: [id number] Admin: 08/18/18 00:59 Dose: 125 mls/hr Documented by: [id number] Infusion: 08/18/18 00:59 Dose: 125 mls/hr Documented by: [id number] Infusion: 08/17/18 22:36 Dose: 125 mls/hr Documented by: [id number] Admin: 08/17/18 17:05 Dose: 125 mls/hr Documented by: [id number] Insulin Aspart (Novolog Flexpen) 0 units SC Q6 TITO Stop: 09/17/18 05:59 Last Admin: 08/18/18 06:22 Dose: Not Given Documented by: [id number] Cosigned by: [id number] Metoprolol Succinate (Toprol Xl) 25 mg PO HS TITO Stop: 09/16/18 20:59 Last Admin: 08/17/18 20:51 Dose: Not Given Documented by: [id number] Discontinued Medications Sodium Chloride (Nss 1000ml) 1,000 mls @ 999 mls/hr IV .Q1H1M ONE Stop: 08/17/18 13:49 Last Infusion: 08/17/18 14:03 Dose: 0 mls/hr Documented by: [id number] Admin: 08/17/18 13:02 Dose: 999 mls/hr Documented by: [id number] Piperacillin Sod/Tazobactam Sod (Zosyn) 4.5 gm in 120 mls @ 240 mls/hr IV NOW ONE Stop: 08/17/18 15:21 Last Infusion: 08/17/18 15:33 Dose: 0 mls/hr Documented by: [id number] Admin: 08/17/18 15:03 Dose: 240 mls/hr Documented by: [id number] Insulin Aspart (Novolog Flexpen) 0 units SC ACHS TITO Stop: 09/16/18 16:40 Last Admin: 08/17/18 21:26 Dose: Not Given Documented by: [id number] Cosigned by: [id number] Admin: 08/17/18 18:32 Dose: 2 units Documented by: [id number] Cosigned by: [id number] Ioversol (Optiray 320 100ml) 94 ml IV ONCE PRN PRN Reason: Interaction Checking Stop: 08/21/18 14:02 Last Admin: 08/17/18 14:03 Dose: 94 ml Documented by: [id number] Morphine Sulfate (Morphine Sulfate) 4 mg IV Q15M PRN PRN Reason: Pain Stop: 08/31/18 12:48 Last Admin: 08/17/18 13:03 Dose: 4 mg Documented by: [id number] Ondansetron HCl (Zofran) 4 mg IV NOW STA Stop: 08/17/18 12:50 Last Admin: 08/17/18 13:03 Dose: 4 mg Documented by: [id number] Medical Decision Making Differential Diagnosis Differential diagnosis: Etiologies such as biliary colic, cholecystitis, hepatitis, pancreatitis, cardiac disease, pancreatitis, gastritis, peptic ulcer disease, appendicitis, cystitis, diverticulitis, mesenteric ischemia, inflammatory bowel disease, ileus, bowel obstruction, testicular torsion, aortic pathology, shingles, as well as others were considered. Medical Records Attestation: I reviewed the patient's medical records. Home Medications Current Medication List: was personally reviewed by me Laboratory Data Attestation: I reviewed the patient's lab results. Result diagrams: 08/18/18 06:26 08/18/18 06:26 Lab Results 08/17/18 08/17/18 08/17/18 Range/Units 11:48 11:48 11:48 WBC 7.28 (4.8-10.8) K/uL RBC 4.10 L (4.7-6.1) M/uL Hgb 12.7 L (14.0-18.0) g/dL Hct 38.3 L (42-52) % MCV 93.4 (80-100) fL MCH 31.0 (25-34) pg MCHC 33.2 (32-36) g/dL RDW Std Deviation 51.8 H (36.4-46.3) fL RDW Coeff of James 15.3 H (11.5-14.5) % Plt Count 265 (130-400) K/uL MPV 9.7 (7.4-10.4) fL Immature Gran % (Auto) 0.3 % Neut % (Auto) 65.2 % Lymph % (Auto) 20.6 % [place] % (Auto) 11.5 % Eos % (Auto) 2.3 % Baso % (Auto) 0.1 % Immature Gran # (Auto) 0.02 (0.00-0.02) K/uL Neut # (Auto) 4.74 (1.4-6.5) K/uL Lymph # (Auto) 1.50 (1.2-3.4) K/uL [place] # (Auto) 0.84 H (0.11-0.59) K/uL Eos # (Auto) 0.17 (0-0.5) K/uL Baso # (Auto) 0.01 (0-0.2) K/uL ESR 73 H (0-14) mm/hr Sodium 142 (136-145) mmol/L Potassium 4.4 (3.5-5.1) mmol/L Chloride 108 H (98-107) mmol/L Carbon Dioxide 27 (21-32) mmol/L Anion Gap 7.0 (3-11) BUN 10 (7-18) mg/dl Creatinine 0.93 (0.6-1.4) mg/dl Est Cr Clr Drug Dosing Not Reportable Est GFR ( Amer) 92.7 Est GFR (Non-Af Amer) 80.0 BUN/Creatinine Ratio 10.4 (10-20) Glucose 118 H (70-99) mg/dl POC Glucose (70-99) Lactate (0.4-2.0) mmol/L Calcium 9.1 (8.5-10.1) mg/dl Phosphorus (2.5-4.9) mg/dl Magnesium (1.8-2.4) mg/dl Total Bilirubin 0.3 (0.2-1) mg/dl AST 13 L (15-37) U/L ALT 11 L (12-78) U/L Alkaline Phosphatase 68 (45-117) U/L Troponin I < 0.015 (0-0.045) ng/ml C-Reactive Protein 1.97 H (0-0.29) mg/dl Total Protein 7.0 (6.4-8.2) gm/dl Albumin 3.0 L (3.4-5.0) gm/dl Globulin 4.0 (2.5-4.0) gm/dl Albumin/Globulin Ratio 0.8 L (0.9-2) Lipase 103 (73-393) U/L Urine Color Urine Appearance (Clear) Urine pH (4.5-7.5) Ur Specific Roff (1.000-1.030) Urine Protein (Negative) Urine Glucose (UA) (Negative) Urine Ketones (Negative) Urine Blood (Negative) Urine Nitrite (Negative) Urine Bilirubin (Negative) Urine Urobilinogen (Negative) Ur Leukocyte Esterase (Negative) Urine WBC (Auto) (0-5) /hpf Urine RBC (Auto) (0-4) /hpf U Hyaline Cast (Auto) (0-5) /lpf U Epithel Cells (Auto) (0-5) /lpf Urine Bacteria (Auto) (Negative) 08/17/18 08/17/18 08/17/18 Range/Units 11:48 12:43 17:11 WBC (4.8-10.8) K/uL RBC (4.7-6.1) M/uL Hgb (14.0-18.0) g/dL Hct (42-52) % MCV (80-100) fL MCH (25-34) pg MCHC (32-36) g/dL RDW Std Deviation (36.4-46.3) fL RDW Coeff of James (11.5-14.5) % Plt Count (130-400) K/uL MPV (7.4-10.4) fL Immature Gran % (Auto) % Neut % (Auto) % Lymph % (Auto) % [place] % (Auto) % Eos % (Auto) % Baso % (Auto) % Immature Gran # (Auto) (0.00-0.02) K/uL Neut # (Auto) (1.4-6.5) K/uL Lymph # (Auto) (1.2-3.4) K/uL [place] # (Auto) (0.11-0.59) K/uL Eos # (Auto) (0-0.5) K/uL Baso # (Auto) (0-0.2) K/uL ESR (0-14) mm/hr Sodium (136-145) mmol/L Potassium (3.5-5.1) mmol/L Chloride (98-107) mmol/L Carbon Dioxide (21-32) mmol/L Anion Gap (3-11) BUN (7-18) mg/dl Creatinine (0.6-1.4) mg/dl Est Cr Clr Drug Dosing Est GFR ( Amer) Est GFR (Non-Af Amer) BUN/Creatinine Ratio (10-20) Glucose (70-99) mg/dl POC Glucose (70-99) Lactate 2.1 H* 1.1 (0.4-2.0) mmol/L Calcium (8.5-10.1) mg/dl Phosphorus (2.5-4.9) mg/dl Magnesium (1.8-2.4) mg/dl Total Bilirubin (0.2-1) mg/dl AST (15-37) U/L ALT (12-78) U/L Alkaline Phosphatase (45-117) U/L Troponin I (0-0.045) ng/ml C-Reactive Protein (0-0.29) mg/dl Total Protein (6.4-8.2) gm/dl Albumin (3.4-5.0) gm/dl Globulin (2.5-4.0) gm/dl Albumin/Globulin Ratio (0.9-2) Lipase (73-393) U/L Urine Color Yellow Urine Appearance Cloudy H (Clear) Urine pH 7.0 (4.5-7.5) Ur Specific Roff 1.014 (1.000-1.030) Urine Protein Negative (Negative) Urine Glucose (UA) Negative (Negative) Urine Ketones Negative (Negative) Urine Blood Negative (Negative) Urine Nitrite Negative (Negative) Urine Bilirubin Negative (Negative) Urine Urobilinogen Negative (Negative) Ur Leukocyte Esterase Negative (Negative) Urine WBC (Auto) 1-5 (0-5) /hpf Urine RBC (Auto) 0-4 (0-4) /hpf U Hyaline Cast (Auto) 1-5 (0-5) /lpf U Epithel Cells (Auto) 0-5 (0-5) /lpf Urine Bacteria (Auto) Negative (Negative) 08/17/18 08/17/18 08/17/18 Range/Units 17:11 17:35 20:41 WBC (4.8-10.8) K/uL RBC (4.7-6.1) M/uL Hgb (14.0-18.0) g/dL Hct (42-52) % MCV (80-100) fL MCH (25-34) pg MCHC (32-36) g/dL RDW Std Deviation (36.4-46.3) fL RDW Coeff of James (11.5-14.5) % Plt Count (130-400) K/uL MPV (7.4-10.4) fL Immature Gran % (Auto) % Neut % (Auto) % Lymph % (Auto) % [place] % (Auto) % Eos % (Auto) % Baso % (Auto) % Immature Gran # (Auto) (0.00-0.02) K/uL Neut # (Auto) (1.4-6.5) K/uL Lymph # (Auto) (1.2-3.4) K/uL [place] # (Auto) (0.11-0.59) K/uL Eos # (Auto) (0-0.5) K/uL Baso # (Auto) (0-0.2) K/uL ESR (0-14) mm/hr Sodium (136-145) mmol/L Potassium (3.5-5.1) mmol/L Chloride (98-107) mmol/L Carbon Dioxide (21-32) mmol/L Anion Gap (3-11) BUN (7-18) mg/dl Creatinine (0.6-1.4) mg/dl Est Cr Clr Drug Dosing Est GFR ( Amer) Est GFR (Non-Af Amer) BUN/Creatinine Ratio (10-20) Glucose (70-99) mg/dl POC Glucose 84 93 (70-99) Lactate (0.4-2.0) mmol/L Calcium (8.5-10.1) mg/dl Phosphorus 3.6 (2.5-4.9) mg/dl Magnesium 1.9 (1.8-2.4) mg/dl Total Bilirubin (0.2-1) mg/dl AST (15-37) U/L ALT (12-78) U/L Alkaline Phosphatase (45-117) U/L Troponin I (0-0.045) ng/ml C-Reactive Protein (0-0.29) mg/dl Total Protein (6.4-8.2) gm/dl Albumin (3.4-5.0) gm/dl Globulin (2.5-4.0) gm/dl Albumin/Globulin Ratio (0.9-2) Lipase (73-393) U/L Urine Color Urine Appearance (Clear) Urine pH (4.5-7.5) Ur Specific Roff (1.000-1.030) Urine Protein (Negative) Urine Glucose (UA) (Negative) Urine Ketones (Negative) Urine Blood (Negative) Urine Nitrite (Negative) Urine Bilirubin (Negative) Urine Urobilinogen (Negative) Ur Leukocyte Esterase (Negative) Urine WBC (Auto) (0-5) /hpf Urine RBC (Auto) (0-4) /hpf U Hyaline Cast (Auto) (0-5) /lpf U Epithel Cells (Auto) (0-5) /lpf Urine Bacteria (Auto) (Negative) 08/18/18 08/18/18 08/18/18 Range/Units 06:05 06:26 06:26 WBC 3.84 L (4.8-10.8) K/uL RBC 3.91 L (4.7-6.1) M/uL Hgb 11.7 L (14.0-18.0) g/dL Hct 36.4 L (42-52) % MCV 93.1 (80-100) fL MCH 29.9 (25-34) pg MCHC 32.1 (32-36) g/dL RDW Std Deviation 52.3 H (36.4-46.3) fL RDW Coeff of James 15.4 H (11.5-14.5) % Plt Count 218 (130-400) K/uL MPV 9.9 (7.4-10.4) fL Immature Gran % (Auto) 0.3 % Neut % (Auto) 60.7 % Lymph % (Auto) 26.0 % [place] % (Auto) 8.9 % Eos % (Auto) 3.6 % Baso % (Auto) 0.5 % Immature Gran # (Auto) 0.01 (0.00-0.02) K/uL Neut # (Auto) 2.33 (1.4-6.5) K/uL Lymph # (Auto) 1.00 L (1.2-3.4) K/uL [place] # (Auto) 0.34 (0.11-0.59) K/uL Eos # (Auto) 0.14 (0-0.5) K/uL Baso # (Auto) 0.02 (0-0.2) K/uL ESR (0-14) mm/hr Sodium 142 (136-145) mmol/L Potassium 4.1 (3.5-5.1) mmol/L Chloride 110 H (98-107) mmol/L Carbon Dioxide 28 (21-32) mmol/L Anion Gap 4.0 (3-11) BUN 8 (7-18) mg/dl Creatinine 0.91 (0.6-1.4) mg/dl Est Cr Clr Drug Dosing 72.4 Est GFR ( Amer) 95.2 Est GFR (Non-Af Amer) 82.2 BUN/Creatinine Ratio 8.5 L (10-20) Glucose 88 (70-99) mg/dl POC Glucose 87 (70-99) Lactate (0.4-2.0) mmol/L Calcium 8.4 L (8.5-10.1) mg/dl Phosphorus (2.5-4.9) mg/dl Magnesium (1.8-2.4) mg/dl Total Bilirubin (0.2-1) mg/dl AST (15-37) U/L ALT (12-78) U/L Alkaline Phosphatase (45-117) U/L Troponin I (0-0.045) ng/ml C-Reactive Protein (0-0.29) mg/dl Total Protein (6.4-8.2) gm/dl Albumin (3.4-5.0) gm/dl Globulin (2.5-4.0) gm/dl Albumin/Globulin Ratio (0.9-2) Lipase (73-393) U/L Urine Color Urine Appearance (Clear) Urine pH (4.5-7.5) Ur Specific Roff (1.000-1.030) Urine Protein (Negative) Urine Glucose (UA) (Negative) Urine Ketones (Negative) Urine Blood (Negative) Urine Nitrite (Negative) Urine Bilirubin (Negative) Urine Urobilinogen (Negative) Ur Leukocyte Esterase (Negative) Urine WBC (Auto) (0-5) /hpf Urine RBC (Auto) (0-4) /hpf U Hyaline Cast (Auto) (0-5) /lpf U Epithel Cells (Auto) (0-5) /lpf Urine Bacteria (Auto) (Negative) Imaging Data Attestation: I personally reviewed and interpreted this imaging study as follows: Radiologist's Impression: XR chest 1V portable CLINICAL HISTORY: Atypical chest pain COMPARISON STUDY: August 2015 FINDINGS: The left-sided PICC catheter has been removed. The heart is borderline enlarged. There is no failure. There is no focal pulmonary consolidation. There is minor basilar sagittal thickening/atelectasis. There are no significant ple ural effusions.[ IMPRESSION: No active disease in the chest. Electronically signed by: Rahul Baird M.D. 08/17/2018 11:35 AM ECG Data Attestation: I personally reviewed and interpreted this ECG as follows: Indication: abdominal pain Rate (beats per minute): 59 Rhythm: sinus bradycardia Findings: no ST depression, no ST elevation and no ectopy Comparison ECG Date: from (08/15/2018) Change: no significant change Blood Pressure Blood Pressure Findings: Elevated blood pressure Blood Pressure Disposition: Referred to patients primary care provider CAREY Lanier The patient is a 73-year-old male who presented to the emergency department with right lower quadrant tenderness. The patient has had ongoing symptoms for approximately 1 week. He is been seen in our facility recently for these complaints and had CAT scan of the abdomen and pelvis. He was set up with a follow-up appointment with surgery and when he was evaluated by the general surgeon today he was felt to have possible surgical abdomen. The patient's CT report was reviewed by the surgeon and he was concerned about the right lower q uadrant specifically some thickening of the bowel wall. He was sent to the emergency department for a repeat CT the abdomen and pelvis for further evaluation. The patient was treated with IV fluids IV pain medication and IV antiemetics. He was also given IV antibiotic's. I discussed the case with general surgeon who sent the patient over. At this time the patient does not have a surgical abdomen but given the degree of pain and the findings on CAT scan and he was felt to be a good candidate for medical admission at this time with serial abdominal exams and possibly an evaluation by the ga stroenterologist. I also discussed this case with the on-call [facility] hospitalist. They have agreed to evaluate the patient in the emergency department for further management and disposition. Impression & Plan Abdominal pain, RLQ, Hernia, Colitis Discharge Plan Visit Data *Final* Discharge Date/Time: 08/17/18 16:23 Chief Complaint: Groin Pain Stated Complaint: GROIN PAIN ED Provider: Aaron Jackson Discharge Problem: Abdominal pain, RLQ, Hernia, Colitis Patient Disposition: Admitted As Inpatient Discharge Instructions Interventions: ED Discharge Assessment Last Done: 08/17/18 16:23 The scribe's documentation has been prepared under my direction and personally reviewed by me in its entirety. I confirm that the note above accurately reflects all work, treatment, procedures, and medical decision making performed by me.
[2018-08-17 12:23] LABS: Bilirubin,Total 0.3 mg/dl (0.2-1); Blood Urea Nitrogen 10 mg/dl (7-18); C Reactive Protein 1.97 mg/dl (0-0.29); Calcium 9.1 mg/dl (8.5-10.1); Est GFR (African American) 92.7; Glucose 118 mg/dl (70-99)
[2018-08-17 12:31] LABS: Alanine Aminotransferase 11 U/L (12-78); Albumin Globulin Ratio 0.8 (0.9-2); Alkaline Phosphatase 68 U/L (45-117); Aspartate Aminotransferase 13 U/L (15-37); BUN Creatinine Ratio 10.4 (10-20); Carbon Dioxide 27 mmol/L (21-32); Chloride 108 mmol/L (98-107); Potassium 4.4 mmol/L (3.5-5.1); Sodium 142 mmol/L (136-145); Troponin I < 0.015 ng/ml (0-0.045)
[2018-08-17] MEDS ORDERED: SODIUM CHLORIDE 0.9% 1000ML 1,000 ML IV ONE (12:49)
[2018-08-17] MEDS ORDERED: ONDANSETRON INJ 2 MG/ML 2 ML VIAL IV STA (12:49)
[2018-08-17] MEDS ORDERED: MoRPHine SULFATE 4 MG/ML 1 ML CARP\\VIAL IV PRN (12:49)
[2018-08-17 12:53] LABS: Appearance Urine Cloudy (Clear); Bacteria Urine Automated Negative (Negative); Bilirubin Urine Negative (Negative); Blood Urine Negative (Negative); Color Urine Yellow; Epithelial Cell Urine Auto 0-5 /lpf (0-5); Glucose Urine UA Negative (Negative); Ketones Urine Negative (Negative); Leukocyte Esterase Urine Negative (Negative); Nitrite Urine Negative (Negative); Protein Urine Negative (Negative); RBC Urine Automated 0-4 /hpf (0-4); Specific Gravity Urine 1.014 (1.000-1.030); Urobilinogen Urine Negative (Negative)
[2018-08-17] MEDS ORDERED: IOVERSOL 100ml IV PRN (14:03)
--- NOTE | 2018-08-17 14:18 | CT Scan Report ---
CT abd pelvis oral and IV con CT DOSE: 731.41 mGy.cm HISTORY: Pain RLQ pain TECHNIQUE: Multiaxial CT images of the abdomen and pelvis were performed following the use of intrave nous and oral contrast. A dose lowering technique was utilized adhering to the principles of ALARA. COMPARISON STUDY: 08/15/2018 FINDINGS: Lung bases are clear. Liver spleen and pancreas appear unremarkable. Multiple bilateral canelo al cysts as well as parapelvic cysts are present. There is no evidence for hydronephrosis. There is a 5 mm nonobstructing calcification lower pole left kidney considered unchanged. The upper abdominal bowel pattern is considered nonobstructive. There has been a prior cholecystectom y. The appendix is normal. There continues to be moderate edematous change surrounding a least one bowel loop within the right l ower quadrant. Mild associated thickening of the mesentery is present Diagnostic considerations include an inflammatory bowel process. The inflammatory change surrounding the bowel loops is slightly improved. No evidence for drainable abscess or collection. Bladder is mid line. There is a fat-containing left inguinal hernia. Trace amount of free fluid within the pelvic cu l-de-sac unchanged. IMPRESSION: 1. Slightly improved inflammatory change of the right lower quadrant associated with at least mild arlen wel wall thickening. 2. Diagnostic considerations include again include the possibility of an infectious or inflammatory p rocess. 3. No evidence for drainable abscess or collection. 4. All remaining additional findings are unchanged. 2. The above report was generated using voice recognition software. It may contain grammatical, syntax or spelling errors. Electronically signed by: Damian Valero M.D. 08/17/2018 2:16 PM
[2018-08-17] MEDS ORDERED: PIPERACILLIN/TAZOBACTAM 4.5 GM/120 ML BAG IV ONE (14:52)
[2018-08-17] MEDS ORDERED: PIPERACILL/TAZOBAC CONSULT ACTIVE PRN ×2 (14:52→16:41)
--- NOTE | 2018-08-17 15:48 | History & Physical Report ---
Date of Service August 17, 2018 Assessment & Plan (1) Abdominal pain, RLQ: Severe, persistent. Patient is afebrile, hemodynamically stable, non- toxic in appearance. Tenderness in the right inguinal area, no rebound but with voluntary guarding. Patient with multiple abdominal surgeries in the past. Suspect ongoing hernia with possible transient incarceration as etiology of pain. -Admit to medical floor -Pain control with Dilaudid ORDER FILLER - added by surgical team, appreciate assistance -Nausea control with Zofran PRN -Empiric Zosyn -LR at 125mL/hr -Liquid diet now, NPO after midnight Present on Admission?: Yes (2) Hernia, inguinal, right: Noted on CT. No evidence of strangulation or incarceration. No obstruction -Management as above -Appreciate Surgical assistance -NPO after midnight for possible surgical exploration Present on Admission?: Yes (3) CAD (coronary artery disease): Stable. Chronic. Patient denies CP. No EKG evidence of ischemia. Stent placed in 2017 -Hold Plavix for possible surgical intervention -Continue Atorvastatin, Lisinopril and Metoprolol -Continue to monitor Present on Admission?: Yes (4) Pre-diabetes: HgAIC=5.9 on 05/12/18. Patient is on Metformin at home. -Hold metformin -ISS Present on Admission?: Yes (5) Hyperlipidemia: Chronic. -Continue Atorvastatin Present on Admission?: Yes (6) Hypertension: Blood pressure stable at present -Continue Lisinopril, Metoprolol -Continue to monitor F/E/N - LR at 125mL/hr, monitor electrolytes and replete as needed, liquid diet as tolerated, NPO after midnight Ppx - SCDs Code - Full Dispo - Admit to medical floor Present on Admission?: Yes History of Present Illness Chief Complaint: inguinal pain Primary Care Provider: SHERMAN Davis Mr. Bird is a pleasant 73yo C male with history of CAD s/p stent in 2017, HTN, HLP, DM, prior epididymitis presenting with severe right inguinal pain. Patient states that he has had pain in the right groin form 3-4 months. He believes it began when he was lifting boxes while moving. He had acute worsening of the pa in approximately one week ago. Pain is constant, severe, 10/10, sharp and burning located in the right groin/suprapubic region and testicle. It is worse with movement and trying to get up, mildly improved with rest. He reports occasional fullness and firmness of the suprapubic region and inguinal canal with a "bulge" that is very tender. Patient also with some epigastric discomfort. He denies nausea/vomiting/diarrhea/constipation/melena/hematochezia. Denies urinary complaints or testicular fullness or pain. Denies fevers/chills. No additional complaints at this time. He was seen by Dr. Lara in clinic today and was sent to the ER. Patient was seen in the ER on 08/11/18 with complaints as above. Patient had a CT abdomen performed which revealed recent cholecystectomy with minimal fat stranding at the gallbladder fossa. No fluid collections. No other concerning findings. He was discharged home in stable condition. Patient seen again in the ER on 08/15/18 with the same pain. During this stay he had a CT Angiogram of the abdomen and pelvis performed which showed multiple thickened loops of small bowel within the right lower quadrant with associated mesenteric edema/fat stranding. Consistent with a nonspecific enteritis. Small amount of fluid within the small right inguinal hernia. No dilated loops of bowel to suggest obstruction. Patient was again discharged home. ER Course: NSS, Zofran, Zosyn, Morphine Allergies Allergy/AdvReac Type Severity Reaction Status Date / Time moxifloxacin Allergy Intermediate RASH Verified 08/17/18 12:18 heparin AdvReac Intermediate discolored Verified 08/17/18 12:18 skin; brown Home Medications Home Medications Medication Instructions Recorded Confirmed Type PreserVision AREDS-2 1 tab PO BID 06/28/18 08/17/18 History atorvastatin 20 mg PO QPM 06/28/18 08/17/18 History cefadroxil 500 mg PO QAM 06/28/18 08/17/18 History cholecalciferol (vitamin D3) 1,000 unit PO BID 06/28/18 08/17/18 History [Vitamin D3] clopidogrel 75 mg PO QAM 06/28/18 08/17/18 History cyanocobalamin (vitamin B-12) 1,000 mcg PO QAM 06/28/18 08/17/18 History docusate sodium [Stool Softener] 250 mg PO BID 06/28/18 08/17/18 History lisinopril 2.5 mg PO QAM 06/28/18 08/17/18 History metformin 1,000 mg PO BID 06/28/18 08/17/18 History metoprolol succinate 25 mg PO HS 06/28/18 08/17/18 History hydrocodone-acetaminophen [[place]] 0.5 tab PO Q6H PRN #10 tab 08/15/18 08/17/18 Rx Past Med/Surg History Medical History CAD (coronary artery disease) KIMBERLY X 1 TO RCA (2006) Diabetes mellitus, type 2 NIDDM Hx of sepsis 2015 2/2 RIGHT KNEE INFECTION S/P SURGERY Hyperlipidemia Hypertension Kidney stones Myocardial Infarction 2006 Osteoarthritis Surgical History History of cardiac cath KIMBERLY X 1 TO RCA (2006) History of colonoscopy Colonoscopy= 08/21/17= MAC sedation at [facility] History of herniorrhaphy UMBILICAL X 3 History of lithotripsy Left ESWL= 12/07/15= LMA#5 at [facility] History of repair of rotator cuff RT/LEFT History of tooth extraction History of total knee replacement B/L; RIGHT TKA REVISION 2/2 SEPSIS Family History Son Family history of diabetes mellitus Social History Preferred Language: [place] Communication Ability: Effective Rail Track Layer Required: No Beliefs That Will Affect Care: None Current Living Situation: Spouse Other Information That Helps Us Care for You: No Feels Safe at Home: Yes Safety Concerns: Feels Safe At This Time Smoking Status: Never smoker Hx Alcohol Use: No Hx Substance Use: No Review of Systems All systems reviewed & are unremarkable except as noted in HPI & below Physical Exam Vital Signs (Past 24 Hours): Last Vital Signs Temp 36.5 C 08/17/18 11:13 Pulse 58 L 08/17/18 15:08 Resp 16 08/17/18 15:08 BP 162/58 H 08/17/18 15:08 Pulse Ox 100 08/17/18 15:08 Physical Exam: General: patient in mild distress secondary to discomfort, non-toxic in appearance, AA&O x 4 Skin: warm, dry, intact, no rashes or lesions HEENT: NC/AT, PERRL, EOMI, anicteric sclera, conjunctiva without injection, external ear normal to inspection and nontender, nares patent, moist mucus membranes, dentition intact, no oropharyngeal lesions, neck supple, trachea midline, no LAD, no thyromegaly, no JVD Heart: +S1/S2, regular, 3/6 DOLORES at 2nd right ICS, no r/g Lungs: equal air entry bilaterally, no rales/rhonchi/wheezes Abd: +BS, soft, mildly tender in the epigastric region and RLQ/LLQ with deep palpation, no guarding/peritoneal signs, voluntary guarding, firmness in the suprapubic region, no hernia appreciated, no masses/organomegaly/ascites, small hernia appreciated in the right inguinal canal, testicles normal in appearance with no masses, fluid collection or tenderness Ext: warm, 2+ pulses in UE/LE bilaterally, no clubbing/cyanosis, trace edema Neuro: nonfocal, patient AA&O x 4, speech intact, no facial droop, moving all extremities on command with equal strength 5/5 Results & Data Laboratory Results Lab Results 08/17/18 08/17/18 08/17/18 Range/Units 11:48 11:48 11:48 WBC 7.28 (4.8-10.8) K/uL RBC 4.10 L (4.7-6.1) M/uL Hgb 12.7 L (14.0-18.0) g/dL Hct 38.3 L (42-52) % MCV 93.4 (80-100) fL MCH 31.0 (25-34) pg MCHC 33.2 (32-36) g/dL RDW Std Deviation 51.8 H (36.4-46.3) fL RDW Coeff of James 15.3 H (11.5-14.5) % Plt Count 265 (130-400) K/uL MPV 9.7 (7.4-10.4) fL Immature Gran % (Auto) 0.3 % Neut % (Auto) 65.2 % Lymph % (Auto) 20.6 % Trigg % (Auto) 11.5 % Eos % (Auto) 2.3 % Baso % (Auto) 0.1 % Immature Gran # (Auto) 0.02 (0.00-0.02) K/uL Neut # (Auto) 4.74 (1.4-6.5) K/uL Lymph # (Auto) 1.50 (1.2-3.4) K/uL Trigg # (Auto) 0.84 H (0.11-0.59) K/uL Eos # (Auto) 0.17 (0-0.5) K/uL Baso # (Auto) 0.01 (0-0.2) K/uL ESR 73 H (0-14) mm/hr Sodium 142 (136-145) mmol/L Potassium 4.4 (3.5-5.1) mmol/L Chloride 108 H (98-107) mmol/L Carbon Dioxide 27 (21-32) mmol/L Anion Gap 7.0 (3-11) BUN 10 (7-18) mg/dl Creatinine 0.93 (0.6-1.4) mg/dl Est Cr Clr Drug Dosing Not Reportable Est GFR ( Amer) 92.7 Est GFR (Non-Af Amer) 80.0 BUN/Creatinine Ratio 10.4 (10-20) Glucose 118 H (70-99) mg/dl POC Glucose (70-99) Lactate (0.4-2.0) mmol/L Calcium 9.1 (8.5-10.1) mg/dl Phosphorus (2.5-4.9) mg/dl Magnesium (1.8-2.4) mg/dl Total Bilirubin 0.3 (0.2-1) mg/dl AST 13 L (15-37) U/L ALT 11 L (12-78) U/L Alkaline Phosphatase 68 (45-117) U/L Troponin I < 0.015 (0-0.045) ng/ml C-Reactive Protein 1.97 H (0-0.29) mg/dl Total Protein 7.0 (6.4-8.2) gm/dl Albumin 3.0 L (3.4-5.0) gm/dl Globulin 4.0 (2.5-4.0) gm/dl Albumin/Globulin Ratio 0.8 L (0.9-2) Lipase 103 (73-393) U/L Urine Color Urine Appearance (Clear) Urine pH (4.5-7.5) Ur Specific [place] (1.000-1.030) Urine Protein (Negative) Urine Glucose (UA) (Negative) Urine Ketones (Negative) Urine Blood (Negative) Urine Nitrite (Negative) Urine Bilirubin (Negative) Urine Urobilinogen (Negative) Ur Leukocyte Esterase (Negative) Urine WBC (Auto) (0-5) /hpf Urine RBC (Auto) (0-4) /hpf U Hyaline Cast (Auto) (0-5) /lpf U Epithel Cells (Auto) (0-5) /lpf Urine Bacteria (Auto) (Negative) 08/17/18 08/17/18 08/17/18 Range/Units 11:48 12:43 17:11 WBC (4.8-10.8) K/uL RBC (4.7-6.1) M/uL Hgb (14.0-18.0) g/dL Hct (42-52) % MCV (80-100) fL MCH (25-34) pg MCHC (32-36) g/dL RDW Std Deviation (36.4-46.3) fL RDW Coeff of James (11.5-14.5) % Plt Count (130-400) K/uL MPV (7.4-10.4) fL Immature Gran % (Auto) % Neut % (Auto) % Lymph % (Auto) % Trigg % (Auto) % Eos % (Auto) % Baso % (Auto) % Immature Gran # (Auto) (0.00-0.02) K/uL Neut # (Auto) (1.4-6.5) K/uL Lymph # (Auto) (1.2-3.4) K/uL Trigg # (Auto) (0.11-0.59) K/uL Eos # (Auto) (0-0.5) K/uL Baso # (Auto) (0-0.2) K/uL ESR (0-14) mm/hr Sodium (136-145) mmol/L Potassium (3.5-5.1) mmol/L Chloride (98-107) mmol/L Carbon Dioxide (21-32) mmol/L Anion Gap (3-11) BUN (7-18) mg/dl Creatinine (0.6-1.4) mg/dl Est Cr Clr Drug Dosing Est GFR ( Amer) Est GFR (Non-Af Amer) BUN/Creatinine Ratio (10-20) Glucose (70-99) mg/dl POC Glucose (70-99) Lactate 2.1 H* 1.1 (0.4-2.0) mmol/L Calcium (8.5-10.1) mg/dl Phosphorus (2.5-4.9) mg/dl Magnesium (1.8-2.4) mg/dl Total Bilirubin (0.2-1) mg/dl AST (15-37) U/L ALT (12-78) U/L Alkaline Phosphatase (45-117) U/L Troponin I (0-0.045) ng/ml C-Reactive Protein (0-0.29) mg/dl Total Protein (6.4-8.2) gm/dl Albumin (3.4-5.0) gm/dl Globulin (2.5-4.0) gm/dl Albumin/Globulin Ratio (0.9-2) Lipase (73-393) U/L Urine Color Yellow Urine Appearance Cloudy H (Clear) Urine pH 7.0 (4.5-7.5) Ur Specific [place] 1.014 (1.000-1.030) Urine Protein Negative (Negative) Urine Glucose (UA) Negative (Negative) Urine Ketones Negative (Negative) Urine Blood Negative (Negative) Urine Nitrite Negative (Negative) Urine Bilirubin Negative (Negative) Urine Urobilinogen Negative (Negative) Ur Leukocyte Esterase Negative (Negative) Urine WBC (Auto) 1-5 (0-5) /hpf Urine RBC (Auto) 0-4 (0-4) /hpf U Hyaline Cast (Auto) 1-5 (0-5) /lpf U Epithel Cells (Auto) 0-5 (0-5) /lpf Urine Bacteria (Auto) Negative (Negative) 08/17/18 08/17/18 08/17/18 Range/Units 17:11 17:35 20:41 WBC (4.8-10.8) K/uL RBC (4.7-6.1) M/uL Hgb (14.0-18.0) g/dL Hct (42-52) % MCV (80-100) fL MCH (25-34) pg MCHC (32-36) g/dL RDW Std Deviation (36.4-46.3) fL RDW Coeff of James (11.5-14.5) % Plt Count (130-400) K/uL MPV (7.4-10.4) fL Immature Gran % (Auto) % Neut % (Auto) % Lymph % (Auto) % Trigg % (Auto) % Eos % (Auto) % Baso % (Auto) % Immature Gran # (Auto) (0.00-0.02) K/uL Neut # (Auto) (1.4-6.5) K/uL Lymph # (Auto) (1.2-3.4) K/uL Trigg # (Auto) (0.11-0.59) K/uL Eos # (Auto) (0-0.5) K/uL Baso # (Auto) (0-0.2) K/uL ESR (0-14) mm/hr Sodium (136-145) mmol/L Potassium (3.5-5.1) mmol/L Chloride (98-107) mmol/L Carbon Dioxide (21-32) mmol/L Anion Gap (3-11) BUN (7-18) mg/dl Creatinine (0.6-1.4) mg/dl Est Cr Clr Drug Dosing Est GFR ( Amer) Est GFR (Non-Af Amer) BUN/Creatinine Ratio (10-20) Glucose (70-99) mg/dl POC Glucose 84 93 (70-99) Lactate (0.4-2.0) mmol/L Calcium (8.5-10.1) mg/dl Phosphorus 3.6 (2.5-4.9) mg/dl Magnesium 1.9 (1.8-2.4) mg/dl Total Bilirubin (0.2-1) mg/dl AST (15-37) U/L ALT (12-78) U/L Alkaline Phosphatase (45-117) U/L Troponin I (0-0.045) ng/ml C-Reactive Protein (0-0.29) mg/dl Total Protein (6.4-8.2) gm/dl Albumin (3.4-5.0) gm/dl Globulin (2.5-4.0) gm/dl Albumin/Globulin Ratio (0.9-2) Lipase (73-393) U/L Urine Color Urine Appearance (Clear) Urine pH (4.5-7.5) Ur Specific [place] (1.000-1.030) Urine Protein (Negative) Urine Glucose (UA) (Negative) Urine Ketones (Negative) Urine Blood (Negative) Urine Nitrite (Negative) Urine Bilirubin (Negative) Urine Urobilinogen (Negative) Ur Leukocyte Esterase (Negative) Urine WBC (Auto) (0-5) /hpf Urine RBC (Auto) (0-4) /hpf U Hyaline Cast (Auto) (0-5) /lpf U Epithel Cells (Auto) (0-5) /lpf Urine Bacteria (Auto) (Negative) Diagnostic Findings CT abd pelvis oral and IV con CT DOSE: 731.41 mGy.cm HISTORY: Pain RLQ pain TECHNIQUE: Multiaxial CT images of the abdomen and pelvis were performed following the use of intravenous and oral contrast. A dose lowering technique was utilized adhering to the principles of ALARA. COMPARISON STUDY: 08/15/2018 FINDINGS: Lung bases are clear. Liver spleen and pancreas appear unremarkable. Multiple bilateral renal cysts as well as parapelvic cysts are present. There is no evidence for hydronephrosis. There is a 5 mm nonobstructing calcification lower pole left kidney considered unchanged. The upper abdominal bowel pattern is considered nonobstructive. There has been a prior cholecystectomy. The appendix is normal. There continues to be moderate edematous change surrounding a least one bowel loop within the right lower quadrant. Mild associated thickening of the mesentery is present Diagnostic considerations include an inflammatory bowel process. The inflamma tory change surrounding the bowel loops is slightly improved. No evidence for drainable abscess or collection. Bladder is midline. There is a fat-containing left inguinal hernia. Trace amount of free fluid within the pelvic cul-de-sac unchanged. IMPRESSION: 1. Slightly improved inflammatory change of the right lower quadrant associated with at least mild bowel wall thickening. 2. Diagnostic considerations include again include the possibility of an infectious or inflammatory process. 3. No evidence for drainable abscess or collection. 4. All remaining additional findings are unchanged. 2. The above report was generated using voice recognition software. It may contain grammatical, syntax or spelling errors. Electronically signed by: Damian Valero M.D. 08/17/2018 2:16 PM Dictated: 08/17/18 1407 Transcribed: 08/17/18 1407 XR chest 1V portable CLINICAL HISTORY: Atypical chest pain COMPARISON STUDY: August 2015 FINDINGS: The left-sided PICC catheter has been removed. The heart is borderline enlarged. There is no failure. There is no focal pulmonary consolidation. There is minor basilar sagittal thickening/atelectasis. There are no significant pleural effusions.[ IMPRESSION: No active disease in the chest. Electronically signed by: Rahul Baird M.D. 08/17/2018 11:35 AM Dictated: 08/17/18 1134 Transcribed: 08/17/18 1134 ECG Additional Comments: SB at 56, no acute ischemic changes Code Status & VTE Plan Code Status FULL VTE Prophylaxis Plan VTE Prophylaxis will be ordered: Yes (1) CAD (coronary artery disease) Coronary Disease-Associated Artery/Lesion type: [place] artery Jamul vs. perez splanted heart: [place] heart Associated angina: without angina Qualified Code(s): I25.10 - Atherosclerotic heart disease of [place] coronary artery without angina pectoris (2) Hyperlipidemia Hyperlipidemia type: unspecified Qualified Code(s): E78.5 - Hyperlipidemia, unspecified (3) Hypertension Hypertension type: essential hypertension Qualified Code(s): I10 - Essential (primary) hypertension
--- NOTE | 2018-08-17 16:22 | Surgery Consultation ---
Date of Consultation August 17, 2018 Assessment & Plan (1) Abdominal pain, acute, right lower quadrant: 73-year-old male with 1 week history of severe right lower quadrant abdominal pain- CT scan with thickened/inflamed loops of small bowel in right lower quadrant without incarceration into hernia. Patient to be admitted by Hospitalist service while ongoing workup is being completed. IV fluids, IV antibiotics per primary service. Will add Dilaudid CLOTH WASHER for pain control. Patient ok to have full liquid diet, but will make NPO after midnight in case surgical intervention is indicated tomorrow. Patient added to OR schedule for for Dx Lap, Possible Bowel Resection, Surgery as necessary. Plan discussed with patient. Patient aware that we will be watching him closely and that he has been added to OR schedule. If patient improves with conservative measures he may not need surgical intervention. All questions answered at this time. History of Present Illness Reason for Consultation: Abdominal pain, acute, right lower quadrant. History of Present Illness Mr. Bird is a 73-year-old male roughly 7 weeks s/p Laparoscopic Cholecystectomy with Extensive Enterolysis with Dr. Lara. Patient was in to see Dr. Lara today in the General Surgery clinic after 2 recent ED visits for right lower quadrant abdominal pain. Patient states that the right lower quadrant abdominal pain began last Thursday. CT scan on 08/11/2018 show 2 small fat containing bilateral inguinal hernias. CT scan on 08/15/2018 showed some thickened/inflamed loops of small bowel in the right lower quadrant without incarceration into inguinal hernia. Patient does report recent Klebsiella infection without a primary cause. Patient states that with IV pain medication abdominal pain went from 10/10 to 5/10. He states that the pain still remains constant. He denies nausea or vomiting. Allergies Allergy/AdvReac Type Severity Reaction Status Date / Time moxifloxacin Allergy Intermediate RASH Verified 08/17/18 12:18 heparin AdvReac Intermediate discolored Verified 08/17/18 12:18 skin; brown Home Medications Home Medications Medication Instructions Recorded Confirmed Type PreserVision AREDS-2 1 tab PO BID 06/28/18 08/17/18 History atorvastatin 20 mg PO QPM 06/28/18 08/17/18 History cefadroxil 500 mg PO QAM 06/28/18 08/17/18 History cholecalciferol (vitamin D3) 1,000 unit PO BID 06/28/18 08/17/18 History [Vitamin D3] clopidogrel 75 mg PO QAM 06/28/18 08/17/18 History cyanocobalamin (vitamin B-12) 1,000 mcg PO QAM 06/28/18 08/17/18 History docusate sodium [Stool Softener] 250 mg PO BID 06/28/18 08/17/18 History lisinopril 2.5 mg PO QAM 06/28/18 08/17/18 History metformin 1,000 mg PO BID 06/28/18 08/17/18 History metoprolol succinate 25 mg PO HS 06/28/18 08/17/18 History hydrocodone-acetaminophen [[place]] 0.5 tab PO Q6H PRN #10 tab 08/15/18 08/17/18 Rx Patient History Medical History CAD (coronary artery disease) KIMBERLY X 1 TO RCA (2006) Diabetes mellitus, type 2 NIDDM Hx of sepsis 2016 2/2 RIGHT KNEE INFECTION S/P SURGERY Hyperlipidemia Hypertension Kidney stones Myocardial Infarction 2006 Osteoarthritis Surgical History History of cardiac cath KIMBERLY X 1 TO RCA (2006) History of colonoscopy Colonoscopy= 08/21/17= MAC sedation at [facility] History of herniorrhaphy UMBILICAL X 3 History of lithotripsy Left ESWL= 12/07/15= LMA#5 at [facility] History of repair of rotator cuff RT/LEFT History of tooth extraction History of total knee replacement B/L; RIGHT TKA REVISION 2/2 SEPSIS Family History Son Family history of diabetes mellitus Social History Preferred Language: Surinamese Communication Ability: Effective 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 ) unable to palpate inguinal hernia on right side during examination due to pain.
[2018-08-17] MEDS ORDERED: HYDROmorphone HCL 0.5MG/ML 50 ML CASSETTE IV PRN (16:40)
[2018-08-17] MEDS ORDERED: NALOXONE HCL 0.4 MG/1 ML VIAL/CARP IV PRN (16:40)
[2018-08-17] MEDS ORDERED: DOCUSATE SODIUM 100 MG CAP PO PRN (16:41)
[2018-08-17] MEDS ORDERED: DEXTROSE 50% 50 ML SYRINGE IV PRN (16:41)
[2018-08-17] MEDS ORDERED: CARBOHYDRATES FOR HYPOGLYCEMIA PO PRN (16:41)
[2018-08-17] MEDS ORDERED: GLUCAGON FOR INJ 1 MG VIAL SQ PRN (16:41)
[2018-08-17] MEDS ORDERED: GLUCOSE 10 TABS/TUBE PO PRN (16:41)
[2018-08-17] MEDS ORDERED: MoRPHine SULFATE 2 MG/ML CARP IV PRN ×2 (16:41→21:41)
[2018-08-17] MEDS ORDERED: GLUCOSE 40% GEL 15 GM TUBE PO PRN (16:41)
[2018-08-17] MEDS: LACTATED RINGER'S 1,000 ML IV SCH (17:05)
[2018-08-17 17:54] LABS: Magnesium 1.9 mg/dl (1.8-2.4); Phosphorus 3.6 mg/dl (2.5-4.9)
[2018-08-17] MEDS: INSULIN ASPART 100 UNITS/ML 3 ML PEN SC SCH ×2 (18:32→21:26)
[2018-08-17] MEDS: PIPERACILLIN/TAZOBACTAM 3.375 GM in DEXTROSE 5% 100 ML IV SCH (20:43)
[2018-08-17] MEDS: ATORVASTATIN 20 MG TAB PO SCH (20:45)
[2018-08-17] MEDS: METOPROLOL SUCC 25MG EXT REL TAB PO SCH (20:51)
[2018-08-17] MEDS: DOCUSATE CALCIUM 240 MG CAPSULE PO SCH (22:21)
[2018-08-17] MEDS ORDERED: Nursing to Pharmacy Communication ONE (22:22)
[2018-08-18] MEDS: LACTATED RINGER'S 1,000 ML IV SCH (00:59)
[2018-08-18] MEDS: PIPERACILLIN/TAZOBACTAM 3.375 GM in DEXTROSE 5% 100 ML IV SCH ×3 (04:37→20:37)
[2018-08-18] MEDS ORDERED: INSULIN ASPART 100 UNITS/ML 3 ML PEN SC SCH (06:00)
[2018-08-18 07:01] LABS: Basophils # (auto) 0.02 K/uL (0-0.2); Basophils % (auto) 0.5 %; Eosinophils # (auto) 0.14 K/uL (0-0.5); Eosinophils % (auto) 3.6 %; Hematocrit (blood only) 36.4 % (42-52); Hemoglobin 11.7 g/dL (14.0-18.0); Immature Granulocytes # (auto) 0.01 K/uL (0.00-0.02); Immature Granulocytes % (auto) 0.3 %; Mean Corpuscular Hgb Conc 32.1 g/dL (32-36); Mean Corpuscular Volume 93.1 fL (80-100); Mean Platelet Volume 9.9 fL (7.4-10.4); Monocytes # (auto) 0.34 K/uL (0.11-0.59); Monocytes % (auto) 8.9 %; Neutrophils # (auto) 2.33 K/uL (1.4-6.5); Neutrophils % (auto) 60.7 %; Platelet Count 218 K/uL (130-400); RDW Coefficient of Variation 15.4 % (11.5-14.5); RDW Standard Deviation 52.3 fL (36.4-46.3); Red Blood Count 3.91 M/uL (4.7-6.1); White Blood Count 3.84 K/uL (4.8-10.8)
[2018-08-18 07:39] LABS: BUN Creatinine Ratio 8.5 (10-20); Calcium 8.4 mg/dl (8.5-10.1); Creatinine Clr Calc Pharmacy 72.4 ml/min; Est GFR (African American) 95.2; Est GFR (Non-African American) 82.2; Potassium 4.1 mmol/L (3.5-5.1)
[2018-08-18] MEDS: DOCUSATE CALCIUM 240 MG CAPSULE PO SCH ×3 (08:37→20:38)
--- NOTE | 2018-08-18 09:37 | Surgery Progress Note ---
Date of Service August 18, 2018 Assessment & Plan (1) Abdominal pain, acute, right lower quadrant: Doing much better clinically. ? etiology. after discussing with Dr. Damian Valero ( radiology) our best guess is incarceration of some of the mesentery of small bowel ( no bowel itself) in the right inguinal hernia. This likely now reduced after pain meds. Both the patient and I are worried about recurrence. Therefore we have decided to proceed tomorrow with dx laparoscopy to evaluate the small bowel seen on CT scan... will plan to repair both hernias if possible. If abnormal small bowel present we may consider partial small bowel resection. discussed options/risks ( bleeding/infect ion/dvt/pe/infection/infection of mesh/dvt/pe/mi/cva/injury to an organ/anastomotic leaks/etc...) questions answered pt agreeable with plan. Subjective pt feeling much better today. denies pain. still "tender" in RLQ/groin. no n/v. Physical Exam Vital Signs (Past 24 Hours): Last Vital Signs Temp 36.4 C L 08/18/18 07:55 Pulse 54 L 08/18/18 07:55 Resp 20 08/18/18 07:55 BP 126/68 08/18/18 07:55 Pulse Ox 98 08/18/18 07:55 Physical Exam: alert. nad abd: soft. mild RLQ ttp. no g/r/r.
[2018-08-18] MEDS: INSULIN ASPART 100 UNITS/ML 3 ML PEN SC SCH ×4 (10:19→20:54)
--- NOTE | 2018-08-18 12:52 | Anesthesiology Consultation ---
Date of Service August 18, 2018 Assessment & Plan (1) Encounter for pre-operative examination: Chart Review Chart Review: Acceptable Risk for Surgery and Patient NOT seen in Pre Admission Testing Consults Requested none Proposed Anesthesia Anesthesia Type: General Risk / Benefits Reviewed With: PT / POA / Parent / Guardian, Accepts Plan and Informed Consent Obtained Additional Notes 73 yo male s/p recent lap michell who has been experiencing abdominal pain and is scheduled for diagnostic lap tomorrow with Dr. Lara. In june patient was a grade 1 view with a MAC 3 and an EZ mask. He tolerated his last anesthetic without apparent complications. NPO Date Last Intake of Fluids: 08/17/18 Time Last Intake of Fluids: 23:59 Date Last Intake of Solids: 08/17/18 Time Last Intake of Solids: 23:59 History Surgery Operation Date: 08/19/18 09:30 Proposed Procedures p Diagnostic Laparoscopy, Possible Bowel Resection, Surgery As Needed - Albino Lara, DO Height/Weight Height: 5 ft 10 in Weight: 81.647 kg Allergies Allergy/AdvReac Type Severity Reaction Status Date / Time moxifloxacin Allergy Intermediate RASH Verified 08/17/18 12:18 heparin AdvReac Intermediate discolored Verified 08/17/18 12:18 skin; brown Medications Home Medications Medication Instructions Recorded Confirmed Last Taken PreserVision AREDS-2 1 tab PO BID 06/28/18 08/17/18 08/10/18 atorvastatin 20 mg PO QPM 06/28/18 08/17/18 08/10/18 cefadroxil 500 mg PO QAM 06/28/18 08/17/18 08/10/18 cholecalciferol (vitamin D3) 1,000 unit PO BID 06/28/18 08/17/18 08/10/18 [Vitamin D3] clopidogrel 75 mg PO QAM 06/28/18 08/17/18 08/10/18 cyanocobalamin (vitamin B-12) 1,000 mcg PO QAM 06/28/18 08/17/18 08/10/18 docusate sodium [Stool Softener] 250 mg PO BID 06/28/18 08/17/18 08/10/18 lisinopril 2.5 mg PO QAM 06/28/18 08/17/18 08/10/18 metformin 1,000 mg PO BID 06/28/18 08/17/1819 metoprolol succinate 25 mg PO HS 06/28/18 08/17/18 08/10/18 hydrocodone-acetaminophen [[place]] 0.5 tab PO Q6H PRN #10 tab 08/15/18 08/17/18 Unknown Active Medications Generic Name Dose Route Start Last Admin Trade Name Freq PRN Reason Stop Dose Admin Atorvastatin Calcium 20 mg 08/17/18 21:00 08/17/18 20:45 Lipitor PO 09/16/18 20:59 20 mg QPM TITO Administration Docusate Calcium 240 mg 08/17/18 21:00 08/18/18 10:19 Surfak PO 09/16/18 20:59 240 mg BID TITO Administration Piperacillin Sod/Tazobactam 115 mls @ 28.75 mls/hr 08/17/18 20:00 08/18/18 13:00 Sod 3.375 gm/ Dextrose IV 08/27/18 19:59 28.8 mls/hr Q8H TITO Administration Protocol Insulin Aspart 0 units 08/18/18 09:45 08/18/18 12:56 Novolog Flexpen SC 09/17/18 09:44 3 units ACHS TITO Administration Metoprolol Succinate 25 mg 08/17/18 21:00 08/17/18 20:51 Toprol Xl PO 09/16/18 20:59 Not Given HS TITO Past Medical History Medical History CAD (coronary artery disease) KIMBERLY X 1 TO RCA (2006) Diabetes mellitus, type 2 NIDDM Hx of sepsis 2016 2/2 RIGHT KNEE INFECTION S/P SURGERY Hyperlipidemia Hypertension Kidney stones Myocardial Infarction 2006 Osteoarthritis Past Family History Family History Son Family history of diabetes mellitus Past Surgical History Surgical History History of cardiac cath KMIBERLY X 1 TO RCA (2006) History of colonoscopy Colonoscopy= 08/21/17= MAC sedation at [facility] History of herniorrhaphy UMBILICAL X 3 History of lithotripsy Left ESWL= 12/07/15= LMA#5 at [facility] History of repair of rotator cuff RT/LEFT History of tooth extraction History of total knee replacement B/L; RIGHT TKA REVISION 2/2 SEPSIS Past Anesthesia History No Hx of Anesthesia Complications History of PONV No Motion Sickness Screening History of Motion Sickness: No Social History Smoking Status: Never smoker Do You Dip or Chew Tobacco: No Hx Alcohol Use: No Hx Substance Use: No Exercise / Class Metabolic Activity II 4-5 Yardwork/Stairs/Walk up hill prior to lap michell Physical Exam Vital Signs Last Vital Signs Temp 36.6 C 08/18/18 11:48 Pulse 70 08/18/18 11:48 Resp 18 08/18/18 11:48 BP 142/64 H 08/18/18 11:48 Pulse Ox 100 08/18/18 11:48 Constitutional not obese ENMT Mouth: no TMJ abnormality, no dentition abnormality and oral opening not small Thyromental Distance: < 3.5 Finger Breadths Mallampati Class: II Neck normal visual inspection; neck extension not limited Respiratory normal respiratory effort Auscultation: lungs clear to auscultation bilaterally Cardiovascular Rate/Rhythm: regular rate and regular rhythm Heart Sounds: no murmur Neurologic moves all extremities Psychiatric A+Ox3, euthymic affect Orientation: alert and oriented x 3 Testing Electrocardiogram Date: 08/17/18 Findings: + SB @ (56) When compared with ECG of 15-AUG-2018 18:19, No significant change was found Chest X-Ray Date: 08/17/18 Findings: + NAD Laboratory Results 08/18/18 06:26 08/18/18 06:26 Urine Color Yellow 08/17/18 12:43 Urine Appearance Cloudy (Clear) H 08/17/18 12:43 Urine pH 7.0 (4.5-7.5) 08/17/18 12:43 Ur Specific [place] 1.014 (1.000-1.030) 08/17/18 12:43 Urine Protein Negative (Negative) 08/17/18 12:43 Urine Glucose (UA) Negative (Negative) 08/17/18 12:43 Urine Ketones Negative (Negative) 08/17/18 12:43 Urine Nitrite Negative (Negative) 08/17/18 12:43 Ur Leukocyte Esterase Negative (Negative) 08/17/18 12:43 Urine WBC (Auto) 1-5 /hpf (0-5) 08/17/18 12:43 Urine RBC (Auto) 0-4 /hpf (0-4) 08/17/18 12:43 U Hyaline Cast (Auto) 1-5 /lpf (0-5) 08/17/18 12:43 U Epithel Cells (Auto) 0-5 /lpf (0-5) 08/17/18 12:43 Urine Bacteria (Auto) Negative (Negative) 08/17/18 12:43 08/18/18 08/18/18 08/18/18 12:05 10:07 06:05 POC Glucose 100 H 96 87
--- NOTE | 2018-08-18 17:57 | Hospitalist Progress Note ---
Date of Service August 18, 2018 Assessment & Plan (1) Abdominal pain, RLQ: Severe, persistent prior to admission, now improved somewhat with pain medicine and antibiotics. Likely incarcerated mesentary that has resolved as per Surgery -plan for surgery tomorrow for exploration and inguinal hernia repair. Patient is afebrile, hemodynamically stable, non-toxic in appearance. -continue pain control prn -Nausea control with Zofran PRN -continue Empiric Zosyn -continue LR at 125mL/hr Npo after midnight (2) Hernia, inguinal, right: Noted on CT. No evidence of strangulation or incarceration on imaging but clinically seems that way as above. No obstruction -Management as above -Appreciate Surgical assistance -NPO after midnight for possible surgical exploration (3) CAD (coronary artery disease): Stable. Chronic. Patient denies CP. No EKG evidence of ischemia. Stent placed in 2016 -Hold Plavix for possible surgical intervention -Continue Atorvastatin, Lisinopril and Metoprolol -Continue to monitor (4) Pre-diabetes: HgAIC=5.9 on 05/12/18. Patient is on Metformin at home. -Hold metformin -ISS (5) Hyperlipidemia: Chronic. -Continue Atorvastatin (6) Hypertension: Blood pressure stable at present -Continue Lisinopril, Metoprolol -Continue to monitor F/E/N - LR at 125mL/hr, monitor electrolytes and replete as needed, liquid diet as tolerated, NPO after midnight Ppx - SCDs Code - Full Dispo - continued stay Subjective Pt still having pain in RLQ but improved from previous. Eating today and feeling bloated, passing stool No chest pain or SOB Review of Systems All systems reviewed & are unremarkable except as noted in HPI & below Physical Exam Vital Signs (Past 24 Hours): Last Vital Signs Temp 36.6 C 08/18/18 15:18 Pulse 62 08/18/18 15:18 Resp 18 08/18/18 15:18 BP 127/57 L 08/18/18 15:18 Pulse Ox 94 08/18/18 15:18 Constitutional: WD/WN, vitals as above Eyes: PERRL, conjunctivae normal, anicteric sclerae ENMT: external ear and nose normal, oropharynx normal Neck: trachea midline, no thyromegaly Respiratory: normal respiratory effort, lungs clear to auscultation Cardiovascular: RRR, no murmur, no edema Gastrointestinal (Abdomen): Inspection/Auscultation: normal bowel sounds Percussion/Palpation: + abdomen tender (in RLQ and groin without guarding) and abdomen soft Musculoskeletal: Extremities: extremities normal to inspection; no cyanosis and no clubbing Skin: no rashes, warm and dry Neurologic: moves all extremities and awake; no focal motor deficits Psychiatric: A+Ox3, euthymic affect Results & Data Laboratory Results 08/19/18 08/19/18 08/19/18 Range/Units 06:48 06:48 06:04 WBC 4.98 (4.8-10.8) K/uL RBC 4.00 L (4.7-6.1) M/uL Hgb 12.1 L (14.0-18.0) g/dL Hct 37.1 L (42-52) % MCV 92.8 (80-100) fL MCH 30.3 (25-34) pg MCHC 32.6 (32-36) g/dL RDW Std Deviation 51.8 H (36.4-46.3) fL RDW Coeff of James 15.3 H (11.5-14.5) % Plt Count 241 (130-400) K/uL MPV 10.1 (7.4-10.4) fL Immature Gran % (Auto) 0.2 % Neut % (Auto) 61.0 % Lymph % (Auto) 22.5 % Boyd % (Auto) 12.7 % Eos % (Auto) 3.4 % Baso % (Auto) 0.2 % Immature Gran # (Auto) 0.01 (0.00-0.02) K/uL Neut # (Auto) 3.04 (1.4-6.5) K/uL Lymph # (Auto) 1.12 L (1.2-3.4) K/uL Boyd # (Auto) 0.63 H (0.11-0.59) K/uL Eos # (Auto) 0.17 (0-0.5) K/uL Baso # (Auto) 0.01 (0-0.2) K/uL Sodium Pending Potassium Pending Chloride Pending Carbon Dioxide Pending Anion Gap Pending BUN Pending Creatinine Pending Est Cr Clr Drug Dosing Pending Est GFR ( Amer) Pending Est GFR (Non-Af Amer) Pending BUN/Creatinine Ratio Pending Glucose Pending POC Glucose 97 (70-99) Calcium Pending Blood Type Antibody Screen 08/18/18 08/18/18 08/18/18 Range/Units 20:34 17:01 15:25 WBC (4.8-10.8) K/uL RBC (4.7-6.1) M/uL Hgb (14.0-18.0) g/dL Hct (42-52) % MCV (80-100) fL MCH (25-34) pg MCHC (32-36) g/dL RDW Std Deviation (36.4-46.3) fL RDW Coeff of James (11.5-14.5) % Plt Count (130-400) K/uL MPV (7.4-10.4) fL Immature Gran % (Auto) % Neut % (Auto) % Lymph % (Auto) % Boyd % (Auto) % Eos % (Auto) % Baso % (Auto) % Immature Gran # (Auto) (0.00-0.02) K/uL Neut # (Auto) (1.4-6.5) K/uL Lymph # (Auto) (1.2-3.4) K/uL Boyd # (Auto) (0.11-0.59) K/uL Eos # (Auto) (0-0.5) K/uL Baso # (Auto) (0-0.2) K/uL Sodium Potassium Chloride Carbon Dioxide Anion Gap BUN Creatinine Est Cr Clr Drug Dosing Est GFR ( Amer) Est GFR (Non-Af Amer) BUN/Creatinine Ratio Glucose POC Glucose 111 H 98 (70-99) Calcium Blood Type B Positive Antibody Screen NEGATIVE 08/18/18 08/18/18 Range/Units 12:05 10:07 WBC (4.8-10.8) K/uL RBC (4.7-6.1) M/uL Hgb (14.0-18.0) g/dL Hct (42-52) % MCV (80-100) fL MCH (25-34) pg MCHC (32-36) g/dL RDW Std Deviation (36.4-46.3) fL RDW Coeff of James (11.5-14.5) % Plt Count (130-400) K/uL MPV (7.4-10.4) fL Immature Gran % (Auto) % Neut % (Auto) % Lymph % (Auto) % Boyd % (Auto) % Eos % (Auto) % Baso % (Auto) % Immature Gran # (Auto) (0.00-0.02) K/uL Neut # (Auto) (1.4-6.5) K/uL Lymph # (Auto) (1.2-3.4) K/uL Boyd # (Auto) (0.11-0.59) K/uL Eos # (Auto) (0-0.5) K/uL Baso # (Auto) (0-0.2) K/uL Sodium Potassium Chloride Carbon Dioxide Anion Gap BUN Creatinine Est Cr Clr Drug Dosing Est GFR ( Amer) Est GFR (Non-Af Amer) BUN/Creatinine Ratio Glucose POC Glucose 100 H 96 (70-99) Calcium Blood Type Antibody Screen (1) CAD (coronary artery disease) Associated angina: without angina Coronary Disease-Associated Artery/Lesion type: [place] artery [place] vs. transplanted heart: deering heart Qualified Code(s): I25.10 - Atherosclerotic heart disease of [place] coronary artery without angina pectoris (2) Hyperlipidemia Hyperlipidemia type: unspecified Qualified Code(s): E78.5 - Hyperlipidemia, unspecified (3) Hypertension Hypertension type: essential hypertension Qualified Code(s): I10 - Essential (primary) hypertension
[2018-08-18] MEDS: ATORVASTATIN 20 MG TAB PO SCH (20:38)
[2018-08-18] MEDS: METOPROLOL SUCC 25MG EXT REL TAB PO SCH (20:43)
[2018-08-18] MEDS ORDERED: Nursing to Pharmacy Communication ONE (22:38)
[2018-08-19] MEDS: PIPERACILLIN/TAZOBACTAM 3.375 GM in DEXTROSE 5% 100 ML IV SCH ×3 (04:23→19:51)
[2018-08-19] MEDS: INSULIN ASPART 100 UNITS/ML 3 ML PEN SC SCH ×4 (06:30→23:37)
[2018-08-19 07:35] LABS: Basophils # (auto) 0.01 K/uL (0-0.2); Basophils % (auto) 0.2 %; Eosinophils # (auto) 0.17 K/uL (0-0.5); Eosinophils % (auto) 3.4 %; Hematocrit (blood only) 37.1 % (42-52); Hemoglobin 12.1 g/dL (14.0-18.0); Immature Granulocytes # (auto) 0.01 K/uL (0.00-0.02); Immature Granulocytes % (auto) 0.2 %; Lymphocytes # (auto) 1.12 K/uL (1.2-3.4); Lymphocytes % (auto) 22.5 %; Mean Corpuscular Hgb Conc 32.6 g/dL (32-36); Mean Corpuscular Volume 92.8 fL (80-100); Mean Platelet Volume 10.1 fL (7.4-10.4); Monocytes # (auto) 0.63 K/uL (0.11-0.59); Monocytes % (auto) 12.7 %; Neutrophils # (auto) 3.04 K/uL (1.4-6.5); Platelet Count 241 K/uL (130-400); RDW Coefficient of Variation 15.3 % (11.5-14.5); RDW Standard Deviation 51.8 fL (36.4-46.3); White Blood Count 4.98 K/uL (4.8-10.8)
[2018-08-19 08:09] LABS: BUN Creatinine Ratio 9.2 (10-20); Est GFR (Non-African American) 70.7; Potassium 4.1 mmol/L (3.5-5.1)
[2018-08-19] MEDS: DOCUSATE CALCIUM 240 MG CAPSULE PO SCH (08:35)
[2018-08-19] MEDS ORDERED: ATROPINE SULFATE 0.1 MG/ML 10ML SYR IV PRN (09:18)
[2018-08-19] MEDS ORDERED: ONDANSETRON INJ 2 MG/ML 2 ML VIAL IV PRN (09:18)
[2018-08-19] MEDS ORDERED: DEXAMETHASONE SOD INJ 4 MG/ML VIAL IV PRN (09:18)
[2018-08-19] MEDS ORDERED: fentaNYL citrate 100 MCG/2 ML VIAL IV PRN (09:18)
[2018-08-19] MEDS ORDERED: ePHEDrine sulfate 50 MG/ML AMP IV PRN (09:18)
--- NOTE | 2018-08-19 09:27 | History & Physical Bridge Note ---
Date of Service August 19, 2018 History & Physical Bridge Note I have examined the patient, reviewed the History & Physical and in the interval since the performance of the History & Physical I have noted the following changes of clinical significance: no changes noted; Pt continues to feel ok other than tenderness in RLQ/groin. no new symptoms. discussed options/risks. discussed possible bowel resection, poss repair hernias, surgery as needed. discussed risks (bleeding/infection/dvt/pe/mi/cva/injury to an organ such as ureter/bladder/bowel etc....) Questions answered. will proceed with diagnostic laparoscopy/BENZ
[2018-08-19] MEDS ORDERED: BUPIVACAINE/EPINEPHRINE 0.5% MPF 1:200,000 30 ML VIAL ONE (09:45)
--- NOTE | 2018-08-19 11:32 | Operative Report ---
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 After successful intubation a King catheter was placed and the arms were tucked. The abdomen was then shaved and sterilely prepped and draped in usual fashion. An infra umbilical incision was made with an 11 blade scalpel and carried down through the soft tissue using cautery. The anterior rectus fascia was opened using electrocautery and 2 #0 Vicryl stay sutures were placed. Peritoneum was elevated with hemostats and incised under direct vision using a Metzenbaum scissor. A finger sweep was performed. A 12 mm Rondon trocar was placed and the abdomen was insufflated to 18 mmHg. A laparoscope was inserted and the abdomen was examined 360 degrees. There was some mid and lower abdominal adhesions regarding small bowel and omentum. We placed a left lower quadrant and left mid abdominal 5 mm trocar. We began examining the right lower quadrant where the patient's symptoms were. We immediately noted thickened small bowel section probably 1-2 feet in length. There is a central hardening of the mesentery with contraction of the bowel in this area. There was no ischemic bowel. There was some fat wrapping. This inflamed bowel was right next to a large right inguinal hernia although it was not incarcerated within it. In fact the inflamed bowel was stuck to the peritoneum of the pelvic sidewall. Large bowel looked normal and the remainder of the small bowel looked normal as well. My partner Dr. Tafoya also came into the room to render an opinion. We both decided the best option would be to perform a mini laparotomy and resected the small portion of bowel that was involved as well as trying primarily close the hernia defect pre-peritoneally. I converted the laparoscopy to a small laparotomy with a lower midline incision and we delivered the small bowel out of the wound and ran it from the terminal ileum proximally. We took down the adhesions in the lower abdomen using finger fractionation as well as scissor lysis. Once we had the adhesions down we then made a small window in the mesentery of the small bowel that was proximal to the involved area. A TUNG brown cartridge 60 mm stapler was used to transect the small bowel. We also found normal-appearing small bowel distal to the area and transected it with a brown TUNG as well. We then used the LigaSure device to take down the mesentery. It was passed off to pathology. We performed a side to side small bowel anastomosis again using a 60 mm TUNG brown cartridge. The common enterotomy was closed using a TA 60 device. The staple lines were all oversewn with 3-0 silk in Lembert fashion. 3-0 silk was also used to place a crotch stitch. The mesenteric defect was closed using 2-0 Vicryl in a running fashion. The anastomosis was viable and patent. There was adequate hemostasis. Certainly I would not feel comfortable placing a mesh in this setting. I therefore I used a #1 Prolene stitch to simply primarily closed the opening of the right inguinal hernia. I used primarily thickened peritoneum and a small a mount of fascia incorporated within my stitches. Several interrupted stitches were used to close the opening to the hernia so that nothing could incarcerate acutely. Thorough irrigation was performed. There was adequate hemostasis. No other gross abnormalities were identified. We used 0- looped PDS in a running fashion to close the fascia. Soft tissue was irrigated and skin was closed using skin ilan. Sterile dressing was applied. The patient was awakened extubated and transferred to recovery in stable condition. My physician financial assistant was present to the entire case. He helped prep the patient. He helped with exposure during my dissection helped with the small bowel resection and anastomosis as well as wound closure and dressing placement. I attest to the content of the Intraoperative Record and any orders documented therein. Any exceptions are noted below.
[2018-08-19] MEDS: HYDROmorphone INJ 1 MG/ML SYRINGE IV PRN ×4 (11:42→11:57)
[2018-08-19] MEDS ORDERED: GLYCOPYRROLATE 0.2 MG/ML VIAL ONE (12:32)
[2018-08-19] MEDS ORDERED: LIDOCAINE HCL 2% 2 ML VIAL/AMP(20MG/ML) INFIL ONE (12:32)
[2018-08-19] MEDS ORDERED: NEOSTIGMINE METHYLSULFATE 5 MG/5 ML SYR ONE (12:32)
[2018-08-19] MEDS ORDERED: DEXAMETHASONE SOD INJ 4 MG/ML VIAL ONE (12:32)
[2018-08-19] MEDS ORDERED: PROPOFOL IV EMULSION 10 MG/ML 20 ML VIAL IV ONE (12:32)
[2018-08-19] MEDS ORDERED: ONDANSETRON INJ 2 MG/ML 2 ML VIAL ONE (12:32)
[2018-08-19] MEDS ORDERED: fentaNYL citrate 100 MCG/2 ML VIAL ONE (12:33)
[2018-08-19] MEDS ORDERED: MIDAZOLAM HCL 1 MG/ML 2ML VIAL ONE (12:33)
[2018-08-19] MEDS: LACTATED RINGER'S 1,000 ML IV SCH ×2 (13:45→20:56)
[2018-08-19] MEDS: ACETAMINOPHEN 1,000 MG/100 ML VIAL IV SCH ×2 (13:49→22:30)
--- NOTE | 2018-08-19 14:10 | Anesthesiology Progress Note ---
Date of Service August 19, 2018 Anesthesia Post Procedure Vital Signs Vital Signs: Temp Pulse Pulse Pulse Resp BP BP 08/19/18 12:59 53 L 16 124/66 08/19/18 12:25 36.3 C L 56 L 14 115/62 08/19/18 12:10 36.6 C 53 L 16 124/51 L 08/19/18 12:00 36.6 C 55 L 16 127/52 L 08/19/18 11:50 59 L 15 145/53 H 08/19/18 11:40 58 L 18 145/53 H 08/19/18 11:30 57 L 16 147/58 H 08/19/18 11:20 64 16 150/63 H 08/19/18 11:14 36.6 C 69 10 L 158/60 H 08/19/18 09:13 36.5 C 56 L 20 162/63 H 08/19/18 07:06 36.4 C L 56 L 16 132/55 L 08/19/18 00:42 36.4 C L 55 L 19 122/52 L 08/18/18 20:42 73 112/62 08/18/18 15:18 36.6 C 62 18 127/57 L Pulse Ox 08/19/18 12:59 97 08/19/18 12:25 97 08/19/18 12:10 98 08/19/18 12:00 98 08/19/18 11:50 100 08/19/18 11:40 100 08/19/18 11:30 100 08/19/18 11:20 99 08/19/18 11:14 95 08/19/18 09:13 100 08/19/18 07:06 97 08/19/18 00:42 95 08/18/18 20:42 08/18/18 15:18 94 Pain Intensity Right Groin: Pain Intensity: 8 Notes Mental Status: alert / awake / arousable and participated in evaluation Patient Amnestic to Procedure: Yes Nausea / Vomiting: adequately controlled Pain: adequately controlled Airway Patency, RR, SpO2: stable & adequate BP & HR: stable & adequate Hydration State: stable & adequate Anesthetic Complications: no major complications apparent
[2018-08-19] MEDS: HYDROmorphone INJ 0.5 MG/0.5 ML SYR IV PRN ×2 (14:25→19:50)
--- NOTE | 2018-08-19 15:55 | Hospitalist Progress Note ---
Date of Service August 19, 2018 Assessment & Plan (1) S/P small bowel resection: Bowel resection and repair of hernia without mesh on 08/19. 1-2 feet of small bowel were removed that were significantly thickened and inflamed. -Pain control -Remain n.p.o. -Continue IV fluids -Advance diet as bowel function returns -General surgery management appreciated -Follow-up on pathology -Continue Zosyn (2) Abdominal pain, RLQ: Severe, persistent prior to admission, now status post surgery as above Likely incarcerated mesentery that has resolved as per Surgery Surgical management as above (3) Hernia, inguinal, right: Noted on CT. No evidence of strangulation or incarceration on imaging but clinically seems that way as above. No obstruction -Now status post repair-no mesh used due to concerns about possible infection ongoing (4) CAD (coronary artery disease): Stable. Chronic. Patient denies CP. No EKG evidence of ischemia. Stent placed in 2017 -Held Plavix for surgical intervention -Continue Atorvastatin, Lisinopril and Metoprolol -Continue to monitor -Discuss with surgery when okay to return to Plavix (5) Pre-diabetes: HgAIC=5.9 on 05/12/18. Patient is on Metformin at home. -Hold metformin -ISS (6) Hyperlipidemia: Chronic. -Continue Atorvastatin (7) Hypertension: Blood pressure stable at present -Continue Lisinopril, Metoprolol -Continue to monitor (8) DVT prophylaxis: SCDs Disposition-remain on medical surgical floor Subjective Patient just returned from surgery. Has some abdominal pain. No flatus. No nausea. No chest pain shortness of breath. Review of Systems All systems reviewed & are unremarkable except as noted in HPI & below Physical Exam Vital Signs (Past 24 Hours): Last Vital Signs Temp 36.3 C L 08/19/18 15:24 Pulse 60 08/19/18 15:24 Resp 16 08/19/18 15:24 BP 101/53 L 08/19/18 15:24 Pulse Ox 99 08/19/18 15:24 Constitutional: WD/WN, vitals as above Eyes: PERRL, conjunctivae normal, anicteric sclerae ENMT: external ear and nose normal, oropharynx normal Neck: trachea midline, no thyromegaly Respiratory: normal respiratory effort, lungs clear to auscultation Cardiovascular: RRR, no murmur, no edema Gastrointestinal (Abdomen): Inspection/Auscultation: + hypoactive bowel sounds Percussion/Palpation: + abdomen tender (At incision site, dressing over abdomen clean dry and intact) and abdomen soft Musculoskeletal: Extremities: extremities normal to inspection; no cyanosis and no clubbing Skin: no rashes, warm and dry Neurologic: moves all extremities and awake; no focal motor deficits Psychiatric: A+Ox3, euthymic affect Genitourinary: King catheter in place with clear yellow urine Results & Data Laboratory Results 08/19/18 08/19/18 08/19/18 Range/Units 23:16 18:13 12:34 WBC (4.8-10.8) K/uL RBC (4.7-6.1) M/uL Hgb (14.0-18.0) g/dL Hct (42-52) % MCV (80-100) fL MCH (25-34) pg MCHC (32-36) g/dL RDW Std Deviation (36.4-46.3) fL RDW Coeff of James (11.5-14.5) % Plt Count (130-400) K/uL MPV (7.4-10.4) fL Immature Gran % (Auto) % Neut % (Auto) % Lymph % (Auto) % Cocke % (Auto) % Eos % (Auto) % Baso % (Auto) % Immature Gran # (Auto) (0.00-0.02) K/uL Neut # (Auto) (1.4-6.5) K/uL Lymph # (Auto) (1.2-3.4) K/uL Cocke # (Auto) (0.11-0.59) K/uL Eos # (Auto) (0-0.5) K/uL Baso # (Auto) (0-0.2) K/uL Sodium (136-145) mmol/L Potassium (3.5-5.1) mmol/L Chloride (98-107) mmol/L Carbon Dioxide (21-32) mmol/L Anion Gap (3-11) BUN (7-18) mg/dl Creatinine (0.6-1.4) mg/dl Est Cr Clr Drug Dosing ml/min Est GFR ( Amer) Est GFR (Non-Af Amer) BUN/Creatinine Ratio (10-20) Glucose (70-99) mg/dl POC Glucose 104 H 83 92 (70-99) Calcium (8.5-10.1) mg/dl 08/19/18 08/19/18 08/19/18 Range/Units 11:39 06:48 06:48 WBC 4.98 (4.8-10.8) K/uL RBC 4.00 L (4.7-6.1) M/uL Hgb 12.1 L (14.0-18.0) g/dL Hct 37.1 L (42-52) % MCV 92.8 (80-100) fL MCH 30.3 (25-34) pg MCHC 32.6 (32-36) g/dL RDW Std Deviation 51.8 H (36.4-46.3) fL RDW Coeff of James 15.3 H (11.5-14.5) % Plt Count 241 (130-400) K/uL MPV 10.1 (7.4-10.4) fL Immature Gran % (Auto) 0.2 % Neut % (Auto) 61.0 % Lymph % (Auto) 22.5 % Cocke % (Auto) 12.7 % Eos % (Auto) 3.4 % Baso % (Auto) 0.2 % Immature Gran # (Auto) 0.01 (0.00-0.02) K/uL Neut # (Auto) 3.04 (1.4-6.5) K/uL Lymph # (Auto) 1.12 L (1.2-3.4) K/uL Cocke # (Auto) 0.63 H (0.11-0.59) K/uL Eos # (Auto) 0.17 (0-0.5) K/uL Baso # (Auto) 0.01 (0-0.2) K/uL Sodium 141 (136-145) mmol/L Potassium 4.1 (3.5-5.1) mmol/L Chloride 110 H (98-107) mmol/L Carbon Dioxide 27 (21-32) mmol/L Anion Gap 4.0 (3-11) BUN 10 (7-18) mg/dl Creatinine 1.03 (0.6-1.4) mg/dl Est Cr Clr Drug Dosing 64.0 ml/min Est GFR ( Amer) 82.0 Est GFR (Non-Af Amer) 70.7 BUN/Creatinine Ratio 9.2 L (10-20) Glucose 98 (70-99) mg/dl POC Glucose 104 H (70-99) Calcium 9.0 (8.5-10.1) mg/dl 08/19/18 Range/Units 06:04 WBC (4.8-10.8) K/uL RBC (4.7-6.1) M/uL Hgb (14.0-18.0) g/dL Hct (42-52) % MCV (80-100) fL MCH (25-34) pg MCHC (32-36) g/dL RDW Std Deviation (36.4-46.3) fL RDW Coeff of James (11.5-14.5) % Plt Count (130-400) K/uL MPV (7.4-10.4) fL Immature Gran % (Auto) % Neut % (Auto) % Lymph % (Auto) % Cocke % (Auto) % Eos % (Auto) % Baso % (Auto) % Immature Gran # (Auto) (0.00-0.02) K/uL Neut # (Auto) (1.4-6.5) K/uL Lymph # (Auto) (1.2-3.4) K/uL Cocke # (Auto) (0.11-0.59) K/uL Eos # (Auto) (0-0.5) K/uL Baso # (Auto) (0-0.2) K/uL Sodium (136-145) mmol/L Potassium (3.5-5.1) mmol/L Chloride (98-107) mmol/L Carbon Dioxide (21-32) mmol/L Anion Gap (3-11) BUN (7-18) mg/dl Creatinine (0.6-1.4) mg/dl Est Cr Clr Drug Dosing ml/min Est GFR ( Amer) Est GFR (Non-Af Amer) BUN/Creatinine Ratio (10-20) Glucose (70-99) mg/dl POC Glucose 97 (70-99) Calcium (8.5-10.1) mg/dl (1) CAD (coronary artery disease) Associated angina: without angina Coronary Disease-Associated Artery/Lesion type: [place]osh[place] artery [place] vs. transplanted heart: shosh[place] heart Qualified Code(s): I25.10 - Atherosclerotic heart disease of [place] coronary artery without angina pectoris (2) Hyperlipidemia Hyperlipidemia type: unspecified Qualified Code(s): E78.5 - Hyperlipidemia, unspecified (3) Hypertension Hypertension type: essential hypertension Qualified Code(s): I10 - Essential (primary) hypertension
[2018-08-19] MEDS: SODIUM CHLORIDE 0.9% 1000ML 1,000 ML IV SCH ×2 (16:19→16:20)
[2018-08-19] MEDS: ONDANSETRON INJ 2 MG/ML 2 ML VIAL IV PRN (19:58)
[2018-08-19] MEDS: METOPROLOL SUCC 25MG EXT REL TAB PO SCH (21:16)
[2018-08-19] MEDS: ATORVASTATIN 20 MG TAB PO SCH (21:16)
[2018-08-20] MEDS: PIPERACILLIN/TAZOBACTAM 3.375 GM in DEXTROSE 5% 100 ML IV SCH ×3 (03:54→19:11)
[2018-08-20] MEDS: LACTATED RINGER'S 1,000 ML IV SCH ×2 (03:56→13:54)
[2018-08-20] MEDS: ACETAMINOPHEN 1,000 MG/100 ML VIAL IV SCH ×3 (05:58→21:54)
[2018-08-20] MEDS: ONDANSETRON INJ 2 MG/ML 2 ML VIAL IV PRN (05:58)
[2018-08-20] MEDS: INSULIN ASPART 100 UNITS/ML 3 ML PEN SC SCH ×5 (06:11→22:04)
[2018-08-20 06:22] LABS: Basophils # (auto) 0.01 K/uL (0-0.2); Basophils % (auto) 0.2 %; Eosinophils # (auto) 0.07 K/uL (0-0.5); Eosinophils % (auto) 1.1 %; Hematocrit (blood only) 35.6 % (42-52); Hemoglobin 11.4 g/dL (14.0-18.0); Immature Granulocytes # (auto) 0.01 K/uL (0.00-0.02); Immature Granulocytes % (auto) 0.2 %; Lymphocytes # (auto) 0.61 K/uL (1.2-3.4); Lymphocytes % (auto) 9.8 %; Mean Corpuscular Volume 94.2 fL (80-100); Mean Platelet Volume 9.9 fL (7.4-10.4); Monocytes # (auto) 0.46 K/uL (0.11-0.59); Monocytes % (auto) 7.4 %; Neutrophils # (auto) 5.06 K/uL (1.4-6.5); Neutrophils % (auto) 81.3 %; Platelet Count 200 K/uL (130-400); RDW Coefficient of Variation 15.5 % (11.5-14.5); RDW Standard Deviation 53.5 fL (36.4-46.3); Red Blood Count 3.78 M/uL (4.7-6.1); White Blood Count 6.22 K/uL (4.8-10.8)
[2018-08-20 06:55] LABS: Calcium 7.9 mg/dl (8.5-10.1); Creatinine Clr Calc Pharmacy 68.6 ml/min; Est GFR (African American) 89.3
--- NOTE | 2018-08-20 08:22 | Surgery Progress Note ---
Date of Service August 20, 2018 Assessment & Plan (1) S/P small bowel resection: POD 1 doing well d/c calvert increase activity start clear liquids. Dr. Tafoya covering for weekend. Subjective oob. feeling well. no complaints. pain minimal. Physical Exam Vital Signs (Past 24 Hours): Last Vital Signs Temp 36.4 C L 08/20/18 08:00 Pulse 61 08/20/18 08:00 Resp 14 08/20/18 08:00 BP 106/48 L 08/20/18 08:00 Pulse Ox 97 08/20/18 08:00 Physical Exam: alert. sitting in chair. appears comfortable. abd: soft. expected tenderness.
[2018-08-20] MEDS: DOCUSATE CALCIUM 240 MG CAPSULE PO SCH ×2 (09:05→21:50)
[2018-08-20 10:29] LABS: Appearance Urine Clear (Clear); Bilirubin Urine Negative (Negative); Blood Urine 3+ (Negative); Color Urine Red; Glucose Urine UA Negative (Negative); Ketones Urine Negative (Negative); Leukocyte Esterase Urine Negative (Negative); Nitrite Urine Negative (Negative); Protein Urine Negative (Negative); Specific Gravity Urine 1.015 (1.000-1.030); Urobilinogen Urine Negative (Negative)
[2018-08-20 10:32] LABS: Bacteria Urine Negative (Negative); Epithelial Cell Urine 0-5 /lpf (0-5); RBC Urine >30 /hpf (0-4); WBC Urine 0-5 /hpf (0-5)
[2018-08-20] MEDS ORDERED: INSULIN ASPART 100 UNITS/ML 3 ML PEN SC SCH ×2 (12:00)
--- NOTE | 2018-08-20 16:54 | Hospitalist Progress Note ---
Date of Service August 20, 2018 Assessment & Plan (1) S/P small bowel resection: Bowel resection and repair of hernia without mesh on 08/19. 1-2 feet of small bowel were removed that were significantly thickened and inflamed. -Pain control -Bowel function has returned-advance diet as tolerated Can DC IV fluids -Advance diet as bowel function returns -General surgery management appreciated -Follow-up on pathology -Continue Zosyn -Bladder scan and straight cath for PVR greater than 400 mL's (2) Abdominal pain, RLQ: Severe, persistent prior to admission, now status post surgery as above and resolved Likely incarcerated mesentery that has resolved as per Surgery Surgical management as above (3) Hernia, inguinal, right: Noted on CT. No evidence of strangulation or incarceration on imaging but clinically seems that way as above. No obstruction -Now status post repair-no mesh used due to concerns about possible infection ongoing (4) CAD (coronary artery disease): Stable. Chronic. Patient denies CP. No EKG evidence of ischemia. Stent placed in 2017 -Held Plavix for surgical intervention -Continue Atorvastatin, Lisinopril and Metoprolol -Continue to monitor -Discuss with surgery when okay to return to Plavix (5) Pre-diabetes: HgAIC=5.9 on 05/12/18. Patient is on Metformin at home. -Hold metformin -ISS (6) Hyperlipidemia: Chronic. -Continue Atorvastatin (7) Hypertension: Blood pressure stable at present -Continue Lisinopril, Metoprolol -Continue to monitor (8) Urinary frequency: Possible that he is retaining urine -Bladder scan and straight cath as needed -Check UA (9) DVT prophylaxis: SCDs Disposition-remain on medical surgical floor Subjective Feeling well. Pain is controlled except uncomfortable in the suprapubic region. He has been urinating frequently but very small amounts. Denies chest pain or shortness of breath Past flatus and a bowel movement today. Diet has been advanced to clear liquids. Review of Systems All systems reviewed & are unremarkable except as noted in HPI & below Physical Exam Vital Signs (Past 24 Hours): Last Vital Signs Temp 36.7 C 08/20/18 15:32 Pulse 63 08/20/18 15:32 Resp 18 08/20/18 15:32 BP 158/69 H 08/20/18 15:32 Pulse Ox 98 08/20/18 15:32 Constitutional: WD/WN, vitals as above Eyes: PERRL, conjunctivae normal, anicteric sclerae ENMT: external ear and nose normal, oropharynx normal Neck: trachea midline, no thyromegaly Respiratory: normal respiratory effort, lungs clear to auscultation Cardiovascular: RRR, no murmur, no edema Gastrointestinal (Abdomen): Inspection/Auscultation: normal bowel sounds; + abdomen abnormal to inspection (Dressing in place with small amount of dried blood in the inferior portion) Percussion/Palpation: + abdomen tender (At incision site) and abdomen soft Musculoskeletal: Extremities: extremities normal to inspection; no cyanosis and no clubbing Skin: no rashes, warm and dry Neurologic: moves all extremities and awake; no focal motor deficits Psychiatric: A+Ox3, euthymic affect Results & Data Laboratory Results Hemoglobin 11.4 BMP within normal limits (1) CAD (coronary artery disease) Associated angina: without angina Coronary Disease-Associated Artery/Lesion type: [place] artery [place] vs. transplanted heart: [place] heart Qualified Code(s): I25.10 - Atherosclerotic heart disease of [place] coronary artery without angina pectoris (2) Hyperlipidemia Hyperlipidemia type: unspecified Qualified Code(s): E78.5 - Hyperlipidemia, unspecified (3) Hypertension Hypertension type: essential hypertension Qualified Code(s): I10 - Essential (primary) hypertension
[2018-08-20] MEDS: METOPROLOL SUCC 25MG EXT REL TAB PO SCH (21:53)
[2018-08-20] MEDS: ATORVASTATIN 20 MG TAB PO SCH (21:53)
[2018-08-21] MEDS: PIPERACILLIN/TAZOBACTAM 3.375 GM in DEXTROSE 5% 100 ML IV SCH ×2 (04:41→13:04)
[2018-08-21] MEDS: ACETAMINOPHEN 1,000 MG/100 ML VIAL IV SCH (05:12)
[2018-08-21] MEDS: DOCUSATE CALCIUM 240 MG CAPSULE PO SCH ×2 (09:20→09:21)
[2018-08-21] MEDS: INSULIN ASPART 100 UNITS/ML 3 ML PEN SC SCH ×2 (09:22→13:06)
[2018-08-21] MEDS ORDERED: BISACODYL 10 MG SUPP PR ONE (10:26)
--- NOTE | 2018-08-21 14:07 | Surgery Progress Note ---
Date of Service August 21, 2018 Assessment & Plan (1) S/P small bowel resection: POD #2- s/p Partial small bowel resection, Primary Repair of Right Inguinal Hernia, Enterolysis Patient seen and examined with Dr. Tafoya. Pt doing very well, ambulating w/o difficulty. +BM, +passing flatus. Denies pain. Tolerating liquid diet- will advance to low fiber diet. pain controlled with Tylenol. He would like to go home today- ok for discharge from surgical standpoint if he tolerates low fiber diet. Discharge instructions provided. Patient to follow-up with Dr. Lara in General Surgery clinic in 1 week. He is aware that he will have to call to make this appointment. Subjective Doing very well- would like to go home today. +passing flatus, +BM Tolerating liquid diet. Physical Exam Vital Signs (Past 24 Hours): Last Vital Signs Temp 36.4 C L 08/21/18 08:00 Pulse 62 08/21/18 08:00 Resp 16 08/21/18 08:00 BP 109/50 L 08/21/18 08:00 Pulse Ox 97 08/21/18 08:00 Gastrointestinal (Abdomen): Inspection/Auscultation: + abdominal surgical incision (sx dressing removed- incisions clean, dry, intact. No signs of infection) Percussion/Palpation: abdomen soft; abdomen nontender
--- NOTE | 2018-08-21 16:27 | Discharge Summary ---
Date of Service August 21, 2018 Admission HPI Per Admitting Provider Mr. Bird is a pleasant 73yo C male with history of CAD s/p stent in 2017, HTN, HLP, DM, prior epididymitis presenting with severe right inguinal pain. Patient states that he has had pain in the right groin form 3-4 months. He believes it began when he was lifting boxes while moving. He had acute worsening of the pain approximately one week ago. Pain is constant, severe, 10/10, sharp and burning located in the right groin/suprapubic region and testicle. It is worse with movement and trying to get up, mildly improved with rest. He reports occasional fullness and firmness of the suprapubic region and inguinal canal with a "bulge" that is very tender. Patient also with some epigastric discomfort. He denies nausea/vomiting/diarrhea/constipation/melena/hematochezia. Denies urinary complaints or testicular fullness or pain. Denies fevers/chills. No additional complaints at this time. He was seen by Dr. Lara in clinic today and was sent to the ER. Patient was seen in the ER on 08/11/18 with complaints as above. Patient had a CT abdomen performed which revealed recent cholecystectomy with minimal fat stranding at the gallbladder fossa. No fluid collections. No other concerning findings. He was discharged home in stable condition. Patient seen again in the ER on 08/15/18 with the same pain. During this stay he had a CT Angiogram of the abdomen and pelvis performed which showed multiple thickened loops of small bowel within the right lower quadrant with associated mesenteric edema/fat stranding. Consistent with a nonspecific enteritis. Small amount of fluid within the small right inguinal hernia. No dilated loops of bowel to suggest obstruction. Patient was again discharged home. ER Course: NSS, Zofran, Zosyn, Morphine Principal Diagnosis Right inguinal hernia, mesenteric fibrosis/inflamed portion of distal small bowel, adhesions Discharge Exam Constitutional WD/WN, vitals as above Eyes PERRL, conjunctivae normal, anicteric sclerae ENMT external ear and nose normal, oropharynx normal Neck trachea midline, no thyromegaly Respiratory normal respiratory effort, lungs clear to auscultation Cardiovascular RRR, no murmur, no edema Gastrointestinal (Abdomen) Inspection/Auscultation: normal bowel sounds; + abdomen abnormal to inspection (Dressing in place with small amount of dried blood in the inferior portion) Percussion/Palpation: + abdomen tender (At incision site) and abdomen soft Musculoskeletal Extremities: extremities normal to inspection; no cyanosis and no clubbing Skin no rashes, warm and dry Neurologic moves all extremities and awake; no focal motor deficits Psychiatric A+Ox3, euthymic affect Discharge Data Allergies Allergy/AdvReac Type Severity Reaction Status Date / Time moxifloxacin Allergy Intermediate RASH Verified 08/17/18 12:18 heparin AdvReac Intermediate discolored Verified 08/17/18 12:18 skin; brown Consultations General Surgery Procedures Performed Operation Date: 08/19/18 09:30 Actual Procedures s Laparoscopy converted to open,(Not Applicable) - Albino Lara DO p partial small bowel resection, primary repair of right inguinal hernia, enterolysis(Not Applicable) - Albino Lara DO Ordered Studies 08/17/18 11:19 CT abd pelvis oral and IV con Stat CXR Hospital Course (1) S/P small bowel resection: Presented with righ tinguinal and lower abd pain, found ot have mesenteric fibrosis/inflamed portion of distal small bowel; right inguinal hernia, and adhesions during surgery. Bowel resection and repair of hernia without mesh on 08/19. 1-2 feet of small bowel were removed that were significantly thickened and inflamed. -doing very well, tolerating regular diet on day of discharge -Bowel function has returned -General surgery management appreciated -Follow-up on pathology after discharge -received Zosyn and convert to Augmentin to finish out a course after discharge -f/u with Surgery after discharge (2) Abdominal pain, RLQ: Severe, persistent prior to admission, now status post surgery as above and resolved Likely incarcerated mesentery that has resolved as per Surgery Surgical management as above (3) Hernia, inguinal, right: Noted on CT. No evidence of strangulation or incarceration on imaging but clinically seems that way as above. No obstruction -Now status post repair-no mesh used due to concerns about possible infection ongoing (4) CAD (coronary artery disease): Stable. Chronic. Patient denies CP. No EKG evidence of ischemia. Stent placed in 2017 -Held Plavix for surgical intervention and restarted after surgery -Continue Atorvastatin, Lisinopril and Metoprolol (5) Pre-diabetes: HgAIC=5.9 on 05/12/18. Patient is on Metformin at home. -Held metformin while inpatient and can restart upon discharge (6) Hyperlipidemia: Chronic. -Continue Atorvastatin (7) Hypertension: Blood pressure stable at present -Continue Lisinopril, Metoprolol (8) Urinary frequency: Was having this and bladder scan did not show any retention, did not need straight cath. Resolved prior to discharge UA negative for infection, but did show 3+ blood likely due to King previously placed for surgery (9) DVT prophylaxis: SCDs Disposition-stable for dc to home Total Time Total Time Spent Total Time Spent (In Minutes): >30 min Total Time Includes: Examination of the Patient, Discharge Planning, Medication Reconciliation and Communication With Other Providers (Surgery PA) Discharge Plan Discharge Items Patient Disposition: Home - Self-Care Reason For Visit: INGUINAL PAIN Discharge Diagnosis: Right inguinal hernia, small bowel resection Condition: Good Discharge Goals: Decrease discomfort, Diagnostic testing, Improve disease control and Therapeutic intervention Activity: As commented below Lifting: No more than 10 pounds Bathing Comment: You may shower, but do not soak or scrub your incisions. Exercise/Sports: Wait until after follow-up appointment Driving/Machine Use Comment: No driving until cleared by Surgery Non-emergency contact: Surgeon Call non-emergency contact if: you have any medication questions, your pain is not controlled, your temperature is above 101.5, your wound has increased redness and your wound has increased drainage Follow-up/Referrals: Albino Levine CRNP [Primary Care Provider] - (Please call to schedule your appointment ) Albino Lara DO [Surgeon] - (Please follow-up with Dr. Lara in the General Surgery clinic in 1 week. Please call to make this appointment. ) Diet: Carb Consistent or DM2 Addtl Provider Instructions: No lifting over 10 lbs until your follow-up appointment with Dr. Lara. Please call the General Surgery clinic at [phone] with any questions or concerns. Please finish out a course of Augmentin for your antibiotic. Prescriptions: New amoxicillin-pot clavulanate [Augmentin] 875-125 mg tablet 1 tab PO BID Qty: 10 RF: 0 Continued atorvastatin 20 mg Tablet 20 mg PO QPM RF: 0 cyanocobalamin (vitamin B-12) 1,000 mcg Tablet 1,000 mcg PO QAM RF: 0 clopidogrel 75 mg Tablet 75 mg PO QAM RF: 0 metformin 1,000 mg Tablet 1,000 mg PO BID RF: 0 metoprolol succinate 25 mg Tablet Extended Release 24 Hr 25 mg PO HS RF: 0 docusate sodium [Stool Softener] 250 mg Capsule 250 mg PO BID RF: 0 lisinopril 2.5 mg Tablet 2.5 mg PO QAM RF: 0 cholecalciferol (vitamin D3) [Vitamin D3] 1,000 unit Tablet 1,000 unit PO BID RF: 0 PreserVision AREDS-2 [id number] pu-cbax-[id number]-mg Capsule 1 tab PO BID RF: 0 Discontinued cefadroxil 500 mg Capsule 500 mg PO QAM RF: 0 hydrocodone-acetaminophen [[place]] 5-325 mg tablet 0.5 tab PO Q6H PRN (Reason: pain) Qty: 10 RF: 0 Stand-Alone Forms: [facility] Discharge Orders: Discharge Order (Routine); Ordered 08/21/18 Ordered By: Shyann Ray Admission Data Admit Date/Time: 08/17/18 15:46 Attending Provider: Shyann Ray Admit Provider: Sunni Avendano Primary Care Provider: Albino Levine Other Providers: Haydee Desouza ; Albino Lara ; Arlene Murdock ; Juan Sebastian ; Sae Tafoya Service: Surgical Services Other Interventions: Discharge Summary Assessment (RN) Last Done: 08/21/18 16:23 Pending Studies at Discharge: Yes Studies:: Pathology of small bowel resected DC Date/Time DO NOT enter until pt leaves facility: 08/21/18 17:32
== END 2018-08-21 17:32 | disposition home or self-care (01) | DRG 330 ==
LOC: ED 11:12 → 3N 15:46 → SUATTDRO 15:46 → 3N 16:23
DX: Z79.899 Other long term (current) drug therapy; K65.4 Sclerosing mesenteritis; I25.10 Atherosclerotic heart disease of native coronary artery without angina pectoris; R73.03 Prediabetes; Z87.442 Personal history of urinary calculi; Z90.49 Acquired absence of other specified parts of digestive tract; E78.5 Hyperlipidemia, unspecified; Z79.2 Long term (current) use of antibiotics; I25.2 Old myocardial infarction; Z88.8 Allergy status to other drugs, medicaments and biological substances; K40.90 Unilateral inguinal hernia, without obstruction or gangrene, not specified as recurrent; Z79.84 Long term (current) use of oral hypoglycemic drugs; Z79.02 Long term (current) use of antithrombotics/antiplatelets; R35.0 Frequency of micturition; I10 Essential (primary) hypertension; Z88.1 Allergy status to other antibiotic agents; Z95.5 Presence of coronary angioplasty implant and graft

== ENCOUNTER 2019-07-07 05:23 | Observation (INO) ==
--- NOTE | 2019-06-29 12:29 | Anesthesiology Consultation ---
Date of Service June 29, 2019 Assessment & Plan Chart Review Chart Review: Acceptable Risk for Surgery and Patient NOT seen in Pre Admission Testing Consults Requested none History Surgery Operation Date: 07/07/19 10:00 Proposed Procedures p Laparoscopic Bilateral Inguinal Hernia Repair with Mesh - Albino Lara DO s Open Incisional Hernia Repair with Mesh - Albino Lara DO Height/Weight Height: 5 ft 10 in Weight: 86.183 kg Allergies Allergy/AdvReac Type Severity Reaction Status Date / Time moxifloxacin Allergy Intermediate RASH Verified 06/28/19 08:58 heparin AdvReac Intermediate discolored Verified 06/28/19 08:58 skin; brown Medications Home Medications Medication Instructions Recorded Confirmed Last Taken cyanocobalamin (vitamin B-12) 1,000 mcg PO QAM #30 tab 11/29/18 06/28/19 Unknown 1,000 mcg tablet magnesium 200 mg tablet 400 mg PO DAILY #30 tab 11/29/18 06/28/19 Unknown atorvastatin 20 mg tablet 20 mg PO QPM #90 tab 05/30/19 06/28/19 Unknown clopidogrel 75 mg tablet 75 mg PO QAM #30 tab 05/30/19 06/28/19 Unknown lisinopril 2.5 mg tablet 2.5 mg PO QAM #30 tab 05/30/19 06/28/19 Unknown metoprolol succinate 25 mg 25 mg PO HS #30 tab 05/30/19 06/28/19 Unknown tablet,extended release 24 hr vitamins A,C,L-rmsy-iyswko 14,320 1 cap PO BID #60 cap 05/30/19 06/28/19 Unkno wn unit-226 mg-200 unit capsule cholecalciferol (vitamin D3) 2,000 2,000 units PO DAILY #30 tab 06/02/19 06/28/19 Unknown unit tablet cefadroxil 500 mg PO QAM 06/28/19 06/28/19 Unknown Past Medical History Medical History Arteriosclerosis of carotid artery (Chronic) Benign prostatic hyperplasia with urinary obstruction (Chronic) CAD (coronary artery disease) (Chronic) KIMBERLY X 1 TO RCA (2006) Diabetes mellitus, type 2 (Chronic) DIET CONTROLLED History of kidney stones Hx of sepsis (Chronic) 2016 Hyperlipidemia (Chronic) Hypertension (Chronic) Inguinal hernia Insomnia (Chronic) Myocardial Infarction 2007 Osteoarthritis (Chronic) Pseudogout (Chronic) Renal cyst (Chronic) Sensorineural hearing loss (SNHL) of both ears (Chronic) Spinal stenosis (Chronic) Tubular adenoma of colon (Chronic) Umbilical hernia Vitamin D deficiency (Chronic) Past Family History Family History Son Family history of diabetes mellitus Mother Breast cancer Heart disease Hypertension Myocardial infarction Brother Other specified forms of hearing loss Other Diabetes Past Surgical History Surgical History Chronic cholecystitis (Resolved) History of Achilles tendon repair Rt History of bowel resection 08/19/2018 [facility] History of cardiac cath KIMBERLY X 1 TO RCA (2006) - [facility] History of colonoscopy Colonoscopy= 08/21/17= MAC sedation at [facility] History of herniorrhaphy UMBILICAL X 3 History of laparoscopic cholecystectomy 07/01/2018 [facility] History of lithotripsy Left ESWL= 12/07/15= LMA#[address] [facility] History of repair of rotator cuff RT/LEFT History of tooth extraction History of total knee replacement B/L; RIGHT TKA REVISION 2/2 SEPSIS Social History Smoking Status: Never smoker Do You Dip or Chew Tobacco: No Hx Alcohol Use: No Hx Substance Use: No substance use type: does not use
[2019-07-07] MEDS ORDERED: LR 15ML/HR IV SCH (06:00)
[2019-07-07] MEDS ORDERED: CEFAZOLIN 2000MG 2,000 MG/15 ML SYR IV SCH (06:00)
[2019-07-07] MEDS ORDERED: BUPIVACAINE/EPINEPHRINE 0.5% MPF 1:200,000 10 ML VIAL ONE (06:41)
[2019-07-07] MEDS ORDERED: ATROPINE SULFATE 0.1 MG/ML 10ML SYR IV PRN (06:51)
[2019-07-07] MEDS ORDERED: LABETALOL HCL IV 5 MG/ML 20ML IV PRN (06:51)
[2019-07-07] MEDS ORDERED: MIDAZOLAM HCL 1 MG/ML 2ML VIAL ONE (06:51)
[2019-07-07] MEDS ORDERED: GLYCOPYRROLATE 0.2 MG/ML VIAL ONE (06:51)
[2019-07-07] MEDS ORDERED: ONDANSETRON INJ 2 MG/ML 2 ML VIAL IV PRN ×2 (06:51→12:29)
[2019-07-07] MEDS ORDERED: NEOSTIGMINE METHYLSULFATE 5 MG/5 ML SYR ONE (06:51)
[2019-07-07] MEDS ORDERED: fentaNYL citrate 100 MCG/2 ML VIAL ONE ×2 (06:51→08:32)
[2019-07-07] MEDS ORDERED: PROPOFOL IV EMULSION 10 MG/ML 20 ML VIAL IV ONE ×2 (06:51→08:54)
[2019-07-07] MEDS ORDERED: DEXAMETHASONE SOD INJ 4 MG/ML VIAL ONE (06:51)
[2019-07-07] MEDS ORDERED: LIDOCAINE HCL 2% 2 ML VIAL/AMP(20MG/ML) INFIL ONE (06:51)
[2019-07-07] MEDS ORDERED: ONDANSETRON INJ 2 MG/ML 2 ML VIAL ONE (06:51)
--- NOTE | 2019-07-07 06:56 | History & Physical Bridge Note ---
Date of Service July 07, 2019 History & Physical Bridge Note I have examined the patient, reviewed the History & Physical and in the interval since the performance of the History & Physical I have noted the following changes of clinical significance: no changes noted
[2019-07-07] MEDS ORDERED: FUROSEMIDE 10 MG/ML 10 ML VIAL IV ONE (09:07)
--- NOTE | 2019-07-07 09:24 | Operative Report ---
PG Post Operative Report Pre & Post Diagnosis Operation Date: 07/07/19 07:00 Pre-Op Diagnosis: Bilateral Inguinal Hernia; Incisional Hernia Post-Op Diagnosis: Bilateral Inguinal Hernia; Incisional Hernia;adhesions I identified the patient and participated in the time-out.: Yes Procedure Operation Date: 07/07/19 07:00 Actual Procedures p Laparoscopic Bilateral Inguinal Hernia Repair with Mesh,(Bilateral) - Albino Lara DO s Open Incisional Hernia Repair with Mesh(Not Applicable) enterolysis - Albino Lara DO Surgeon Albino Lara DO Rack Worker sanchez [place] Estimated Blood Loss 20 Findings Consistent with Post-Op Diagnosis Specimens none Description of Procedure After informed consent was obtained the patient was taken to the operating room and placed in supine position. After successful intubation a King catheter was placed and the abdomen was shaved and sterilely prepped and draped in usual f ashion. I reopened his supraumbilical incision over a palpable and visible hernia with 11 blade scalpel. This was carried down through soft tissue using cautery. We immediately encountered a large hernia sac which I excised using cautery. This exposed the fascial defect with small bowel adhesed to the undersurface. I used traction/ countertraction and Metzenbaum scissors to slowly take down adhesions involving primarily small bowel. Once I had the small bowel detached from the fascia I then had to partially close the defect so that I could insufflate the abdomen. I used 0 Vicryl in simple interrupted fashion to close approximately half of the hernia defect. I then inserted a 12 mm Rondon trocar and insufflated the abdomen to 18 mmHg. Laparoscope was inserted and the abdomen examined in 360 degrees. There were some additional adhesions involving colon and small bowel in the lower abdomen. I began by placing a left mid abdominal 5 mm trocar and a left lower quadrant 5 mm trocar. We used harmonic scalpel and laparoscopic scissors to take down adhesions to the anterior abdominal wall. Once I had these all freed up there were obvious hernia defects in both groins. I began with the right side. I was able to manually reduce the hernias using graspers. I then took down the hernia sac in 360 degrees using a harmonic scalpel. Once I had everything reduced I used a piece of circular silicone coated mesh and secured it over the defect such it was overlapping for several inches in all directions. It was secured to the anterior abdominal wall above the iliopubic tract using a pro-tack device. I was also able to place a tack in Rich's ligament/ pubic bone. It laid nice and flat and tension-free and covered the defect nicely. I then had to remove the 2 left-sided trochars and closed the skin defect using 4-0 Monocryl. I then reinserted the 5 mm trochars on the right side of the abdomen in similar locations. One in the mid abdomen and the one in the right lower quadrant. Again I was able to reduce the left groin hernia using blunt graspers. Again we used a harmonic scalpel to take down the hernia sac and reduced everything into the abdominal cavity exposing only the cord and cord structures. Use the same silicone covered mesh as an onlay and again secured it above the iliopubic tract laterally as well as into the Rich's ligament on the medial side. Again it laid nice and flat and covered the defect in all directions. A quick look around the abdomen showed no other abnormalities. There was adequate hemostasis. The trochars were all removed and the abdomen desufflated. Attention then turned to fixing the incisional hernia. I cut out the 0 Vicryl sutures that I had placed previously which expose a several centimeter circular defect. I used a V patch circular mesh with a silicone barrier as an underlay. I used an 8 cm mesh which overlapped nicely for several centimeters in all directions. We pulled this up to the undersurface of the fascia and secured the mesh arms to the fascia using four-point fixation on each side with 0 Ethibond. The mesh laid nice and flat and tension-free. Next we closed the fascia over top of the mesh using 0 Ethibond in simple interrupted fashion. We then thoroughly irrigated the wound. Deep layer was closed with 3-0 Vicryl and skin with 4-0 Monocryl. The remaining trocar incisions were closed using 4-0 Monocryl as well. Marcaine was injected around them for postoperative analgesia and skin glue used as dressings. The patient was awakened extubated and transferred recovery in stable condition. My physician case assistant was present for the entire case. She assisted with exposure/retraction, running the camera as well as repair of the open incisional hernia and wound closure and dressing placement. I attest to the content of the Intraoperative Record and any orders documented therein. Any exceptions are noted below.
[2019-07-07] MEDS: fentaNYL citrate 100 MCG/2 ML VIAL IV PRN ×8 (09:50→11:20)
--- NOTE | 2019-07-07 10:09 | Anesthesiology Progress Note ---
Date of Service July 07, 2019 Anesthesia Post Procedure Vital Signs Vital Signs: Temp Pulse Pulse Resp BP Pulse Ox 07/07/19 09:50 62 16 128/67 96 07/07/19 09:43 36.2 C L 75 16 149/57 H 96 07/07/19 05:53 36.6 C 60 18 140/56 L 99 Notes Mental Status: alert / awake / arousable and participated in evaluation Patient Amnestic to Procedure: Yes Nausea / Vomiting: adequately controlled Pain: adequately controlled Airway Patency, RR, SpO2: see Notes below BP & HR: stable & adequate Hydration State: see Notes below Notes: near end of surgery patient started to have some blood timnged frothy liquid coming from his ett. Taken out of steep trendelberg, oxygen saturations at lowest were low 90s but pretty quickly came up to normal. end of case, very little return from tube even with suctioning, breathing spontaneously through tube with tidal volumes over 1000ml and sats 100% on 100% oxygen - extubated and taken to recovery - ecg normal sinus, chest film pending, maintaining sats in mid 90s on mask - complains only of surgical site pain, no chest pain or dyspnea. Spoke with Dr Staton and he will stop by shortly to help evaluate and treat - will admit to watch over night in PCU unless something changes.
--- NOTE | 2019-07-07 10:13 | XRay Report ---
XR chest 1V portable HISTORY: 74 years-old Male Question pulmonary edema acute shortness of breath with possible pulmonar y edema COMPARISON: Chest radiograph 08/17/2018, CT abdomen and pelvis 06/13/2019 TECHNIQUE: AP view of the chest FINDINGS: Cardiac silhouette is enlarged, unchanged. The patient is rotated towards the left. There is no pneum othorax, or large pleural effusion. Mild blunting of the costophrenic angles. Pulmonary vascular jayshree estion with asymmetric left greater than right mixed interstitial and alveolar opacities. Degenerativ e changes of the shoulders and spine. IMPRESSION: Cardiomegaly with asymmetric left greater than right mixed interstitial and alveolar opac ities suggestive of asymmetric pulmonary edema versus infectious or inflammatory pneumonitis. Follow- up recommended. ACT 112: Negative or not required by law. The above report was generated using voice recognition software. It may contain grammatical, syntax o r spelling errors. Electronically signed by: Jc Foss M.D. 07/07/2019 10:12 AM
--- NOTE | 2019-07-07 10:53 | Cardiology Consultation ---
Date of Consultation July 07, 2019 Assessment & Plan (1) CHF (congestive heart failure): He developed acute congestive heart failure during surgery, part of this may be due to his position although it is quite unusual. Although his left ventricular function was not easily measured it appeared to be relatively normal. His initial troponin is undetectable. I would repeat the chest x-ray in the morning. (2) CAD (coronary artery disease): He has known coronary disease but he denies symptoms preceding surgery. I do not know the status of his coronary arteries as those records do not seem to be available here. So far there seems to be no evidence of an acute ischemic event. History of Present Illness Reason for Consultation: CHF Attending Physician: Albino Lara, History of Present Illness This is a 74-year-old gentleman who just underwent laparoscopic herniorrhaphy and clinically had pulmonary edema during the procedure. Unfortunately he is a very poor historian, part of that might be that he is immediately postop, however he is extubated. When asked if he had any heart disease he said no and that he does not follow-up with a program director substance abuse. He is not from this area but from the records he does have heart disease. His records indicate that he had hypertension, diabetes mellitus and known coronary artery disease with a stent placed in 2017. He tells me that he does not follow-up regularly with a program director substance abuse, he is quite active although does not do anything specific and has not had any symptoms of chest discomfort. He denies shortness of breath or difficulty with exertion lately. During surgery he was noted to have frothy sputum in his endotracheal tube, he was in a steep reverse Trendelenburg during surgery and in the recovery room he seemed to recover quickly and was extubated. Chest x-ray however shows left- sided pulmonary edema. He denies chest discomfort in the recovery room, he also denies shortness of breath and appears comfortable having been extubated. He has not had a lot of cardiac studies here, he has had electrocardiograms but no echocardiogram that I see. His current electrocardiogram in the recovery room shows sinus rhythm at 61 bpm and appears to be normal. Compared to prior electrocardiograms going back to June 23, 2018 he seems to have had improvement in his inferior T waves compared to that earlier tracing but that improvement seem to occur between May and August 15, 2018. Allergies Allergy/AdvReac Type Severity Reaction Status Date / Time moxifloxacin Allergy Intermediate RASH Verified 07/07/19 06:04 heparin AdvReac Intermediate discolored Verified 07/07/19 06:04 skin; brown Home Medications Home Medications Medication Instructions Recorded Confirmed Type cyanocobalamin (vitamin B-12) 1,000 mcg PO QAM #30 tab 11/29/18 07/07/19 Rx 1,000 mcg tablet magnesium 200 mg tablet 400 mg PO DAILY #30 tab 11/29/18 07/07/19 Rx atorvastatin 20 mg tablet 20 mg PO QPM #90 tab 05/30/19 07/07/19 Rx clopidogrel 75 mg tablet 75 mg PO QAM #30 tab 05/30/19 07/07/19 Rx lisinopril 2.5 mg tablet 2.5 mg PO QAM #30 tab 05/30/19 07/07/19 Rx metoprolol succinate 25 mg 25 mg PO HS #30 tab 05/30/19 07/07/19 Rx tablet,extended release 24 hr vitamins A,C,V-hsfx-reewqa 14,320 1 cap PO BID #60 cap 05/30/19 07/07/19 Rx unit-226 mg-200 unit capsule cholecalciferol (vitamin D3) 50 2,000 units PO DAILY #30 tab 06/02/19 07/07/19 Rx mcg (2,000 unit) tablet cefadroxil 500 mg PO QAM 06/28/19 07/07/19 History Patient History Medical History Arteriosclerosis of carotid artery (Chronic) Benign prostatic hyperplasia with urinary obstruction (Chronic) CAD (coronary artery disease) (Chronic) KIMBERLY X 1 TO RCA (2006) Diabetes mellitus, type 2 (Chronic) DIET CONTROLLED History of kidney stones Hx of sepsis (Chronic) 2016 Hyperlipidemia (Chronic) Hypertension (Chronic) Inguinal hernia Insomnia (Chronic) Myocardial Infarction 2006 Osteoarthritis (Chronic) Pseudogout (Chronic) Renal cyst (Chronic) Sensorineural hearing loss (SNHL) of both ears (Chronic) Spinal stenosis (Chronic) Tubular adenoma of colon (Chronic) Umbilical hernia Vitamin D deficiency (Chronic) Surgical History Chronic cholecystitis (Resolved) History of Achilles tendon repair Rt History of bowel resection 08/19/2018 [facility] History of cardiac cath KIMBERLY X 1 TO RCA (2006) - [facility] History of colonoscopy Colonoscopy= 08/21/17= MAC sedation at [facility] History of herniorrhaphy UMBILICAL X 3 History of laparoscopic cholecystectomy 07/01/2018 [facility] History of lithotripsy Left ESWL= 12/07/15= LMA#5 at [facility] History of repair of rotator cuff RT/LEFT History of tooth extraction History of total knee replacement B/L; RIGHT TKA REVISION 2/2 SEPSIS Hx of inguinal hernia surgery (07/07/19) Laparoscopic Bilateral Inguinal Hernia Repair with Mesh Open Incisional Hernia Repair with Mesh enterolysis Dr. 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 Other Information That Helps Us Care for You: No Feels Safe at Home: Yes Safety Concerns: Feels Safe At This Time Smoking Status: Never smoker Do You Dip or Chew Tobacco: No ; Second Hand Exposure: No ; Hx Alcohol Use: No Hx Substance Use: No Childhood Exposure to Second-Hand Smoke: No caffeine: Yes during the past year weight has: remained stable Dental Care, Regularly: No Physical Activity Frequency: Daily Seatbelt Use: always Sunscreen Use: Yes Review of Systems Review of Systems: All systems reviewed & are unremarkable except as noted in HPI & below Physical Exam Physical Exam: Constitutional: Alert, cooperative and in no distress. HEENT: Unremarkable Neck: No jugular venous distention, carotid pulses are normal and equal bilaterally without bruits. Pulmonary: Clear to auscultation on the right, diffuse crackles on the left. Cardiac: Regular rhythm with no murmur, gallop or rub. Abdomen: Soft, nontender with normal bowel sounds. Extremities: No edema. Distal pulses intact. Neurologic: No focal findings. Gait is steady. Skin: No rash, ecchymoses or petechiae. Results & Data ([facility]) Vital Signs (Past 12 Hours) Vital Signs Temp Pulse Pulse Resp BP Pulse Ox 07/07/19 10:30 59 L 16 136/55 L 91 07/07/19 10:20 36.6 C 66 16 129/52 L 94 07/07/19 10:10 62 16 112/44 L 94 07/07/19 10:00 60 16 122/45 L 92 07/07/19 09:50 62 16 128/67 96 07/07/19 09:43 36.2 C L 75 16 149/57 H 96 07/07/19 05:53 36.6 C 60 18 140/56 L 99 Laboratory Results Intake and Output 07/06/19 07/07/19 07/07/19 22:59 06:59 14:59 Intake Total 1700 / 1700 Output Total 820 / 820 Balance 880 / 880 Intake: IV 100 / 100 Lr 1,000 ml @ 15 mls/hr IV . 100 / 100 Q24H [facility] Rx#:[id number] IV Perioperative 1600 / 1600 Output: Estimated Blood Loss 20 / 20 Urine Amount (Catheter) 800 / 800 King/Indwelling 800 / 800 Other: Weight 89.6 kg Diagnostic Findings Electrocardiogram: Sinus rhythm, no acute changes Telemetry in the recovery room: Sinus rhythm, no significant arrhythmia Chest x-ray: Left-sided pulmonary edema, the right looks quite clear PG Care Time/CCT Total # of Minutes Spent Total Time Spent with Patient: Total time spent is greater than 50% in coordination of care (as documented) at patient's floor/unit and/or counseling patient: Coding Level of Care Code 28132 Initial Inpt Care Lvl 3 Diagnoses CHF (congestive heart failure) I50.9 CAD (coronary artery disease) I25.10 Associated angina: without angina Coronary Disease-Associated Artery/Lesion type: [place] artery [place] vs. transplanted heart: [place] heart (1) CAD (coronary artery disease) Associated angina: without angina Coronary Disease-Associated Artery/Lesion type: [place] artery [place] vs. transplanted heart: [place] heart Qualified Code(s): I25.10 - Atherosclerotic heart disease of [place] coronary artery without angina pectoris
[2019-07-07] MEDS ORDERED: HYDROCODONE/ACETAMOPHEN 5/325MG TAB PO PRN (12:29)
[2019-07-07] MEDS ORDERED: MoRPHine SULFATE 2 MG/ML CARP IV PRN (12:51)
[2019-07-07] MEDS ORDERED: MoRPHine SULFATE 4 MG/ML 1 ML CARP\\VIAL IV PRN ×2 (12:52→13:06)
[2019-07-07] MEDS: cephALEXin 500 MG CAP PO SCH ×2 (14:10→20:20)
--- NOTE | 2019-07-07 14:38 | Electrocardiogram Report ---
Test Reason : Blood Pressure : / mmHG Vent. Rate : 061 BPM Atrial Rate : 061 BPM P-R Int : 154 ms QRS Dur : 094 ms QT Int : 428 ms P-R-T Axes : 052 047 047 degrees QTc Int : 430 ms Normal sinus rhythm Normal ECG When compared with ECG of 17-AUG-2018 11:28, QT has lengthened Confirmed by Toño Staton ([id number]) on 07/07/2019 2:38:04 PM Referred By: Albino Lara Confirmed By:Toño Staton
[2019-07-07 14:40] LABS: Hematocrit (blood only) 40.9 % (42-52); Hemoglobin 13.5 g/dL (14.0-18.0); Mean Corpuscular Hemoglobin 30.8 pg (25-34); Mean Corpuscular Volume 93.2 fL (80-100); Mean Platelet Volume 9.9 fL (7.4-10.4); Platelet Count 230 K/uL (130-400); RDW Coefficient of Variation 14.9 % (11.5-14.5); RDW Standard Deviation 50.3 fL (36.4-46.3); Red Blood Count 4.39 M/uL (4.7-6.1); White Blood Count 8.67 K/uL (4.8-10.8)
[2019-07-07 14:59] LABS: BUN Creatinine Ratio 16.1 (10-20); Blood Urea Nitrogen 20 mg/dl (7-18); Carbon Dioxide 28 mmol/L (21-32); Chloride 109 mmol/L (98-107); Creatinine Clr Calc Pharmacy 56.2 ml/min; Est GFR (African American) 63.8; Glucose 145 mg/dl (70-99); Potassium 4.5 mmol/L (3.5-5.1); Sodium 141 mmol/L (136-145)
[2019-07-07 15:04] LABS: NT Pro B Type Natriuretic Pept 569 pg/ml (0-1800); Troponin I < 0.015 ng/ml (0-0.045)
[2019-07-07] MEDS ORDERED: GLUCAGON FOR INJ 1 MG VIAL SQ PRN (15:06)
[2019-07-07] MEDS ORDERED: DEXTROSE 50% 50 ML SYRINGE IV PRN (15:06)
[2019-07-07] MEDS ORDERED: CARBOHYDRATES FOR HYPOGLYCEMIA PO PRN (15:06)
[2019-07-07] MEDS ORDERED: GLUCOSE 40% GEL 15 GM TUBE PO PRN (15:06)
[2019-07-07] MEDS ORDERED: GLUCOSE 10 TABS/TUBE PO PRN (15:06)
[2019-07-07] MEDS ORDERED: PERFLUTREN LIPID MICROSPHERE (DEFINITY) IV ONE (15:45)
--- NOTE | 2019-07-07 16:07 | XCELERA ---
[id number] \\[email or web address]\[id number]_[email or web address]\[id number]
--- NOTE | 2019-07-07 16:15 | Hospitalist Consultation ---
Date of Consultation July 07, 2019 Assessment & Plan (1) Pulmonary edema: - New onset - noted to have pink frothy sputum in ETT during surgery but doing overall well post-operatively -- Denies H/O CHF or need for diuretic therapy -- Possibly noncardiac etiology - given normal EF, negative troponin, normal BNP -- Maybe fluid shift from pressure gradients given intubation causing increase venous return- maybe something similar to a negative pressure pulmonary edema? - Lasix 10 mg IV x 1 dose given post-op with approx. 1400 cc diuresis - will monitor for need of additional dosing however seems to have responded nicely to this - Continues to wean O2 to support saturations of > 90% - Echo - limited - however normal EF - CXR with asymmetric L > R mixied interstitial and alveolar opaciites - pulmonary edema vs infectious vs inflammatory pneumonitis - Will hold on Abx; obtain labs in AM; repeat CXR - Upon re-assessment may benefit from additional Lasix - could consider a should 3-4 day course pending repeat CXR in AM (2) Bilateral inguinal hernia (BIH): - S/P repair; incisional hernia repair; and lysis of adhesions on 07/07 - Surgical management per primary team (3) CAD (coronary artery disease): - STABLE - Had a cardiac stent placed in 2006 - per records appears RCA - Not able to review records that far back - states he has been well from a cardiac perspective and normally does not F/U with cardiology - Continue BB and statin; ACEI can be resumed pending AM labs (4) Hypertension: - STABLE - Hold Lisinopril until AM labs assessed; Continue Toprol XL 25 mg HS (5) Hyperlipidemia: (6) Klebsiella infection: Of the knee, - Follows with ID - continue Cefadroxil - family to bring in (7) DVT prophylaxis: SCDs Supervising Physician Co-Signing Physician Notes PA Supervision Note: I personally saw and examined the patient. I verified all burris points and agree with JERARDO Pride with the following exceptions and/or additions: Feeling much better after IV lasix, has diuresed andnow weaned of O2 when I saw him later in the day. Denies CP or SOB, has some mild abd pain from surgery. Ate regular food, no BM yet. History and ROS reviewed as above VSS NAD, AAOx3 RRR no mgr Lungs with bibasilar crackles still, no rhonchi or wheezing, breathing unlabored Abd +incisions with dermabond, mild +TTP over incision sites, no guarding or rebound, soft Ext no edema 74 yo male with history as above, here for bilat inguinal hernia repair and ventral hernia repair, with acute pulm edema -will give another dose of IV lasix 20mg x 1 now and continue diurese Follow tomorrow History of Present Illness Reason for Consultation: Pulmonary Edema Requesting Physician: Pulmonary Edema Attending Physician: Albino Lara, History of Present Illness Mr. Bird is a 74 y/o male with PMHx of HTN, CAD S/P Stent, Pre-DM, HLD, and now S/P B/L Inguinal hernia repair/incisional hernia repair, lysis of adhesions on 07/07. Surgery largely uneventful until end of surgery. Patient was noted to have blood tinged frothy liquid coming from ETT. He was removed from a steep trendelenberg. Per notes his O2 sats at lowest were low 90s but quickly impro vanna. By end of case he had little fluid return and was able to be extubated. He was given Lasix 10 mg IV x 1 dose and per report put out around 1400 cc urine. Patient denies feelings of SOB and has been weaned to 2 L and saturations at 98%. Limited echo performed with EF 55-60%. He denies needing Lasix or H/O CHF. Family states he does have a rather chronic cough with mucus production but upon further discussion seems to fit more with post-nasal drip. No recent changes with this. No pulmonary disease noted. Never smoked or had occupational exposures to suggest COPD/asthma. Allergies Allergy/AdvReac Type Severity Reaction Status Date / Time moxifloxacin Allergy Intermediate RASH Verified 07/07/19 06:04 heparin AdvReac Intermediate discolored Verified 07/07/19 06:04 skin; brown Home Medications Home Medications Medication Instructions Recorded Confirmed Type cyanocobalamin (vitamin B-12) 1,000 mcg PO QAM #30 tab 11/29/18 07/07/19 Rx 1,000 mcg tablet magnesium 200 mg tablet 400 mg PO DAILY #30 tab 11/29/18 07/07/19 Rx atorvastatin 20 mg tablet 20 mg PO QPM #90 tab 05/30/19 07/07/19 Rx clopidogrel 75 mg tablet 75 mg PO QAM #30 tab 05/30/19 07/07/19 Rx lisinopril 2.5 mg tablet 2.5 mg PO QAM #30 tab 05/30/19 07/07/19 Rx metoprolol succinate 25 mg 25 mg PO HS #30 tab 05/30/19 07/07/19 Rx tablet,extended release 24 hr vitamins A,C,O-ffck-blszfs 14,320 1 cap PO BID #60 cap 05/30/19 07/07/19 Rx unit-226 mg-200 unit capsule cholecalciferol (vitamin D3) 50 2,000 units PO DAILY #30 tab 06/02/19 07/07/19 Rx mcg (2,000 unit) tablet cefadroxil 500 mg PO QAM 06/28/19 07/07/19 History Patient History Medical History Arteriosclerosis of carotid artery (Chronic) Benign prostatic hyperplasia with urinary obstruction (Chronic) CAD (coronary artery disease) (Chronic) KIMBERLY X 1 TO RCA (2006) Diabetes mellitus, type 2 (Chronic) DIET CONTROLLED History of kidney stones Hx of sepsis (Chronic) 2016 Hyperlipidemia (Chronic) Hypertension (Chronic) Inguinal hernia Insomnia (Chronic) Myocardial Infarction 2006 Osteoarthritis (Chronic) Pseudogout (Chronic) Renal cyst (Chronic) Sensorineural hearing loss (SNHL) of both ears (Chronic) Spinal stenosis (Chronic) Tubular adenoma of colon (Chronic) Umbilical hernia Vitamin D deficiency (Chronic) Surgical History Chronic cholecystitis (Resolved) History of Achilles tendon repair Rt History of bowel resection 08/19/2018 [facility] History of cardiac cath KIMBERLY X 1 TO RCA (2006) - [facility] History of colonoscopy Colonoscopy= 08/21/17= MAC sedation at [facility] History of herniorrhaphy UMBILICAL X 3 History of laparoscopic cholecystectomy 07/01/2018 [facility] History of lithotripsy Left ESWL= 12/07/15= LMA#5 at [facility] History of repair of rotator cuff RT/LEFT History of tooth extraction History of total knee replacement B/L; RIGHT TKA REVISION 2/2 SEPSIS Hx of inguinal hernia surgery (07/07/19) Laparoscopic Bilateral Inguinal Hernia Repair with Mesh Open Incisional Hernia Repair with Mesh enterolysis Dr. 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 Other Information That Helps Us Care for You: No Feels Safe at Home: Yes Safety Concerns: Feels Safe At This Time Smoking Status: Never smoker Do You Dip or Chew Tobacco: No ; Second Hand Exposure: No ; Hx Alcohol Use: No Hx Substance Use: No Childhood Exposure to Second-Hand Smoke: No caffeine: Yes during the past year weight has: remained stable Dental Care, Regularly: No Physical Activity Frequency: Daily Seatbelt Use: always Sunscreen Use: Yes Review of Systems Constitutional: no fever and no chills Eyes: no worsening vision Ear, Nose, Mouth, Throat: + post nasal drip; no sore throat and no dysphagia Respiratory: + cough (chronic); no dyspnea and no wheezing Cardiovascular: no chest pain, no palpitations, no lightheadedness and no edema Gastrointestinal: + abdominal pain (incisional) and + bloating; no nausea and no vomiting Genitourinary: no dysuria Integumentary: no rash Physical Exam Constitutional: WD/WN, vitals as above Eyes: + anicteric sclerae ENMT: Ears: no hearing impairment Neck: trachea midline Respiratory: normal respiratory effort Auscultation: + crackles (L base) Cardiovascular: RRR, no murmur, no edema Gastrointestinal (Abdomen): Inspection/Auscultation: + abdomen distended Percussion/Palpation: + abdomen tender (incisional) Musculoskeletal: Head/Neck/Chest: normocephalic and head atraumatic Skin: no rashes, warm and dry Neurologic: moves all extremities Psychiatric: A+Ox3, euthymic affect Results & Data ([facility]) Vital Signs (Past 12 Hours) Vital Signs Temp Pulse Pulse Pulse Resp BP Pulse Ox 07/07/19 14:01 65 07/07/19 12:03 36.5 C 64 18 122/63 94 07/07/19 11:40 36.6 C 60 16 122/50 L 94 07/07/19 11:30 58 L 16 117/44 L 94 07/07/19 11:20 36.2 C L 69 16 126/50 L 92 07/07/19 11:10 61 16 117/66 92 07/07/19 11:00 62 16 114/60 92 07/07/19 10:50 59 L 16 128/57 L 94 07/07/19 10:40 58 L 16 123/59 L 93 07/07/19 10:30 59 L 16 136/55 L 91 07/07/19 10:20 36.6 C 66 16 129/52 L 94 07/07/19 10:10 62 16 112/44 L 94 07/07/19 10:00 60 16 122/45 L 92 07/07/19 09:50 62 16 128/67 96 07/07/19 09:43 36.2 C L 75 16 149/57 H 96 07/07/19 05:53 36.6 C 60 18 140/56 L 99 PG Care Time/CCT Total # of Minutes Spent Total Time Spent with Patient: Total time spent is greater than 50% in coordination of care (as documented) at patient's floor/unit and/or counseling patient: Coding Level of Care Code 49371 Office/OBS Consult Lvl 2 Diagnoses Pulmonary edema J81.1 Bilateral inguinal hernia (BIH) K40.20 CAD (coronary artery disease) I25.10 Hypertension I10 Hyperlipidemia E78.5 Klebsiella infection A49.8 DVT prophylaxis Z29.9
[2019-07-07] MEDS: INSULIN ASPART 100 UNITS/ML 3 ML PEN SC SCH ×2 (17:29→20:24)
[2019-07-07] MEDS ORDERED: FUROSEMIDE 20 MG in SYRINGE 0 ML IV ONE (18:45)
[2019-07-07] MEDS ORDERED: ATORVASTATIN 20 MG TAB PO SCH (21:00)
[2019-07-07] MEDS ORDERED: METOPROLOL SUCC 25MG EXT REL TAB PO SCH (21:00)
[2019-07-07] MEDS: HYDROCODONE/ACETAMOPHEN 5/325MG TAB PO PRN (22:14)
[2019-07-08 05:54] LABS: Hematocrit (blood only) 38.7 % (42-52); Hemoglobin 12.6 g/dL (14.0-18.0); Mean Corpuscular Hemoglobin 30.6 pg (25-34); Mean Corpuscular Hgb Conc 32.6 g/dL (32-36); Mean Corpuscular Volume 93.9 fL (80-100); Mean Platelet Volume 10.2 fL (7.4-10.4); Platelet Count 210 K/uL (130-400); RDW Standard Deviation 51.1 fL (36.4-46.3); Red Blood Count 4.12 M/uL (4.7-6.1); White Blood Count 8.62 K/uL (4.8-10.8)
[2019-07-08 06:26] LABS: BUN Creatinine Ratio 18.9 (10-20); Blood Urea Nitrogen 22 mg/dl (7-18); Calcium 8.7 mg/dl (8.5-10.1); Carbon Dioxide 29 mmol/L (21-32); Chloride 106 mmol/L (98-107); Creatinine Clr Calc Pharmacy 61.8 ml/min; Est GFR (Non-African American) 62.1; Glucose 115 mg/dl (70-99); Potassium 4.3 mmol/L (3.5-5.1); Sodium 140 mmol/L (136-145)
[2019-07-08 06:31] LABS: Troponin I < 0.015 ng/ml (0-0.045)
--- NOTE | 2019-07-08 07:10 | XRay Report ---
XR chest 1V portable HISTORY: 74 years-old Male Acute CHF follow-up study in a patient with congestive heart failure COMPARISON: Chest radiograph 07/07/2019 TECHNIQUE: Portable AP view of the chest FINDINGS: Cardiomegaly with near complete resolution of the previously described densities. Minimal residual le ft basilar opacities. No pneumothorax, large pleural effusion or overt pulmonary edema. Degenerative changes of the shoulders and spine. IMPRESSION: 1. Cardiomegaly with resolution of the previously described asymmetric pulmonary edema. 2. Minimal left basilar opacities suggest probable atelectasis. ACT 112: Negative or not required by law. The above report was generated using voice recognition software. It may contain grammatical, syntax o r spelling errors. Electronically signed by: Jc Foss M.D. 07/08/2019 7:08 AM
[2019-07-08] MEDS: INSULIN ASPART 100 UNITS/ML 3 ML PEN SC SCH ×2 (07:49→11:50)
[2019-07-08] MEDS: HYDROCODONE/ACETAMOPHEN 5/325MG TAB PO PRN (08:05)
--- NOTE | 2019-07-08 08:38 | Anesthesiology Progress Note ---
Date of Service July 08, 2019 Anesthesia Post Procedure Vital Signs Vital Signs: Temp Pulse Pulse Pulse Resp BP BP 07/08/19 07:40 36.4 C L 55 L 16 136/69 07/08/19 07:26 56 L 07/08/19 04:00 36.7 C 57 L 16 116/62 07/08/19 00:00 71 07/07/19 23:00 36.6 C 66 16 104/47 L 07/07/19 18:43 36.7 C 75 18 128/65 07/07/19 16:00 76 07/07/19 15:14 36.6 C 84 18 129/61 07/07/19 14:01 65 07/07/19 12:03 36.5 C 64 18 122/63 07/07/19 11:40 36.6 C 60 16 122/50 L 07/07/19 11:30 58 L 16 117/44 L 07/07/19 11:20 36.2 C L 69 16 126/50 L 07/07/19 11:10 61 16 117/66 07/07/19 11:00 62 16 114/60 07/07/19 10:50 59 L 16 128/57 L 07/07/19 10:40 58 L 16 123/59 L 07/07/19 10:30 59 L 16 136/55 L 07/07/19 10:20 36.6 C 66 16 129/52 L 07/07/19 10:10 62 16 112/44 L 07/07/19 10:00 60 16 122/45 L 07/07/19 09:50 62 16 128/67 07/07/19 09:43 36.2 C L 75 16 149/57 H Pulse Ox 07/08/19 07:40 97 07/08/19 07:26 07/08/19 04:00 95 07/08/19 00:00 07/07/19 23:00 95 07/07/19 18:43 96 07/07/19 16:00 07/07/19 15:14 98 07/07/19 14:01 07/07/19 12:03 94 07/07/19 11:40 94 07/07/19 11:30 94 07/07/19 11:20 92 07/07/19 11:10 92 07/07/19 11:00 92 07/07/19 10:50 94 02/13/20 10:40 93 07/07/19 10:30 91 07/07/19 10:20 94 07/07/19 10:10 94 07/07/19 10:00 92 07/07/19 09:50 96 07/07/19 09:43 96 Notes Mental Status: alert / awake / arousable Patient Amnestic to Procedure: Yes Nausea / Vomiting: adequately controlled Pain: adequately controlled Airway Patency, RR, SpO2: stable & adequate BP & HR: stable & adequate Hydration State: stable & adequate Anesthetic Complications: no major complications apparent and Pt Satisfied with anesthetic care
[2019-07-08] MEDS ORDERED: CLOPIDOGREL BISULFATE 75 MG TAB PO SCH (09:00)
--- NOTE | 2019-07-08 11:38 | Surgery Progress Note ---
Date of Service July 08, 2019 Assessment & Plan (1) Ventral hernia: pod 1 doing well. discussed with cardiology...enzymes and echo essentially normal ok for d/c instructions given. pt to f/u with cardiology in 2-3 weeks. Subjective pt seen doing well. nancy diet. minimal abdominal discomfort. no cp or SOB. Physical Exam Physical Exam: alert. nad abd: soft. wounds look good. expected bruising. Results & Data Vital Signs (Past 12 Hours) Vital Signs Temp Pulse Pulse Resp BP BP Pulse Ox 07/08/19 11:11 36.7 C 52 L 16 135/68 96 07/08/19 07:40 36.4 C L 55 L 16 136/69 97 07/08/19 07:26 56 L 07/08/19 04:00 36.7 C 57 L 16 116/62 95 07/08/19 00:00 71 PG Care Time/CCT Total # of Minutes Spent Total Time Spent with Patient: Total time spent is greater than 50% in coordination of care (as documented) at patient's floor/unit and/or counseling patient: Coding Level of Care Code None Diagnoses Ventral hernia K43.9
--- NOTE | 2019-07-08 11:47 | Cardiology Progress Note ---
Date of Service July 08, 2019 Assessment & Plan (1) CHF (congestive heart failure): He developed acute unilateral pulmonary edema during surgery, part of this may be due to his position although it is quite unusual. Although his left ventricular function was not easily measured it appeared to be relatively normal. His troponins have been unremarkable. His repeat chest x-ray this morning is unremarkable. It must of had something to do with the intubation or position, it does not appear to be a cardiac issue and it has resolved. I would not perform any further testing at this time. (2) CAD (coronary artery disease): He has known coronary disease but he denies symptoms preceding surgery. I do not know the status of his coronary arteries as those records do not seem to be available here. There seems to be no evidence of an acute ischemic event. I would not pursue further evaluation. He should follow-up with a machine crater, he is agreeable. Since we do not have another machine crater in the area that we know of we can follow-up with us. Admission and Anticipated Discharge Date Admission Date: July 07, 2019 Subjective He is feeling very well today, no cardiovascular symptoms, no shortness of breath. He is a better historian today (I saw him yesterday just after sedation) and he reports having his stent placed in [place] by Dr. Li in 2006. He did follow-up locally he believes but he cannot remember who it was but he says it was in the medical science building, which should be our group although I do not see any record of that. Physical Exam Physical Exam: Constitutional: Alert, cooperative and in no distress. HEENT: Unremarkable Neck: No jugular venous distention, carotid pulses are normal and equal bilaterally without bruits. Pulmonary: Clear to auscultation on the right, diffuse crackles on the left. Cardiac: Regular rhythm with no murmur, gallop or rub. Abdomen: Soft, nontender with normal bowel sounds. Extremities: No edema. Distal pulses intact. Neurologic: No focal findings. Gait is steady. Skin: No rash, ecchymoses or petechiae. Results & Data ([facility]) Vital Signs (Past 12 Hours) Vital Signs Temp Pulse Pulse Pulse Resp BP BP 07/08/19 11:39 36.7 C 52 L 75 16 135/68 136/69 07/08/19 11:11 36.7 C 52 L 16 135/68 07/08/19 07:40 36.4 C L 55 L 16 136/69 07/08/19 07:26 56 L 07/08/19 04:00 36.7 C 57 L 16 116/62 07/08/19 00:00 71 Pulse Ox 07/08/19 11:39 96 07/08/19 11:11 96 07/08/19 07:40 97 07/08/19 07:26 07/08/19 04:00 95 07/08/19 00:00 Laboratory Results Cardiac Enzymes 07/07/19 07/08/19 Range/Units 14:15 05:19 Troponin I < 0.015 < 0.015 (0-0.045) ng/ml CBC 07/07/19 07/08/19 Range/Units 14:15 05:19 WBC 8.67 8.62 (4.8-10.8) K/uL RBC 4.39 L 4.12 L (4.7-6.1) M/uL Hgb 13.5 L 12.6 L (14.0-18.0) g/dL Hct 40.9 L 38.7 L (42-52) % Plt Count 230 210 (130-400) K/uL Comprehensive Metabolic Panel 07/07/19 07/08/19 Range/Units 14:15 05:19 Sodium 141 140 (136-145) mmol/L Potassium 4.5 4.3 (3.5-5.1) mmol/L Chloride 109 H 106 (98-107) mmol/L Carbon Dioxide 28 29 (21-32) mmol/L BUN 20 H 22 H (7-18) mg/dl Creatinine 1.26 1.14 (0.6-1.4) mg/dl Glucose 145 H 115 H (70-99) mg/dl Calcium 9.0 8.7 (8.5-10.1) mg/dl Intake and Output 07/07/19 07/08/19 07/08/19 22:59 06:59 14:59 Intake Total 300 / 2200 200 / 2200 Output Total 1949 / 3619 700 / 3620 Balance -1650 / -1420 -500 / -1420 Intake: Oral 300 / 500 200 / 500 Output: Urine Amount (Catheter) 1949 / 3600 700 / 3600 King/Indwelling 1950 / 3600 700 / 3600 Other: Weight 88.8 kg 88.8 kg Patient Weight 07/09/19 06:59 Weight 88.8 kg Diagnostic Findings Telemetry: Sinus rhythm, PVCs, no significant arrhythmia PG Care Time/CCT Total # of Minutes Spent Total Time Spent with Patient: Total time spent is greater than 50% in coordination of care (as documented) at patient's floor/unit and/or counseling patient: Coding Level of Care Code 36742 Subseq Hosp Care Lvl 2 Diagnoses CHF (congestive heart failure) I50.9 CAD (coronary artery disease) I25.10 Coronary Disease-Associated Artery/Lesion type: [place] artery [place] vs. transplanted heart: [place] heart Associated angina: without angina (1) CAD (coronary artery disease) Coronary Disease-Associated Artery/Lesion type: [place] artery [place] vs. transplanted heart: [place] heart Associated angina: without angina Qualified Code(s): I25.10 - Atherosclerotic heart disease of [place] coronary artery without angina pectoris
--- NOTE | 2019-07-08 12:09 | Hospitalist Progress Note ---
Date of Service July 08, 2019 Assessment & Plan (1) Pulmonary edema: - New onset - noted to have pink frothy sputum in ETT during surgery but doing overall well post-operatively -- Denies H/O CHF or need for diuretic therapy -- Possibly noncardiac etiology - given normal EF, negative troponin, normal BNP -- Maybe fluid shift from pressure gradients given intubation causing increase venous return- maybe something similar to a negative pressure pulmonary edema? maybe had to do with ETT placement? - Lasix x 2 doses given post-op with good diuresis and weaned to RA; CXR on day of D/C with complete resolution of L sided opacities - Continues to wean O2 to support saturations of > 90% - Echo - limited - however normal EF - No indication for ongoing treatment of this condition - may not be completely certain the etiology - Discussed with Cardiology - Dr. 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) - Continue BB and statin; ACEI can be resumed (held post-op pending labs) (4) Hypertension: - STABLE - Continue Lisinopril; Continue Toprol XL 25 mg HS (5) Hyperlipidemia: (6) Klebsiella infection: - Knee - Follows with ID - continue Cefadroxil - family to bring in (7) DVT prophylaxis: SCDs Admission and Anticipated Discharge Date Admission Date: July 07, 2019 Anticipated date of discharge: 07/08/19 Supervising Physician Co-Signing Physician Notes PA Supervision Note: I did not personally see or examine the patient today, but I verified all burris points of JERARDO Pride's assessment and plan with the following exceptions/additions: None 74 yo male with history as above, here for bilat inguinal hernia repair and ventral hernia repair, with acute pulm edema developing intraoperatively -treated with IV lasix and had significant improvement, resolution of pulm edema ECHO with preserved EF Stable for dc to home Not requiring O2 Seen by Cardiology Subjective Reports doing well today. Some mild incisional pain but controllable. Tolerating diet. He has been on RA since last evening and denies SOB. CXR shows resolution of pulmonary edema Review of Systems Constitutional: no fever, no chills and no anorexia Ear, Nose, Mouth, Throat: no sore throat and no dysphagia Respiratory: + cough (chronic); no dyspnea and no wheezing Cardiovascular: no chest pain, no palpitations and no lightheadedness Gastrointestinal: + abdominal pain (incisional); no bloating, no nausea and no vomiting Genitourinary: no dysuria Musculoskeletal: no body aches Integumentary: no rash Physical Exam Constitutional: WD/WN, vitals as above Eyes: + anicteric sclerae ENMT: Ears: no hearing impairment Neck: trachea midline Respiratory: normal respiratory effort Auscultation: + crackles (bases b/l but cleared with multiple deep inhalations) Cardiovascular: RRR, no murmur, no edema Gastrointestinal (Abdomen): Percussion/Palpation: + abdomen tender (incisional) Musculoskeletal: Head/Neck/Chest: normocephalic and head atraumatic Skin: no rashes, warm and dry Neurologic: moves all extremities Psychiatric: A+Ox3, euthymic affect Results & Data ([facility]) Vital Signs (Past 12 Hours) Vital Signs Temp Pulse Pulse Pulse Resp BP BP 07/08/19 11:39 36.7 C 52 L 75 16 135/68 136/69 07/08/19 11:11 36.7 C 52 L 16 135/68 07/08/19 07:40 36.4 C L 55 L 16 136/69 07/08/19 07:26 56 L 07/08/19 04:00 36.7 C 57 L 16 116/62 Pulse Ox 07/08/19 11:39 96 07/08/19 11:11 96 07/08/19 07:40 97 07/08/19 07:26 07/08/19 04:00 95 PG Care Time/CCT Total # of Minutes Spent Total Time Spent with Patient: Total time spent is greater than 50% in coordination of care (as documented) at patient's floor/unit and/or counseling patient: Coding Level of Care Code 04246 Subseq Hosp Care Lvl 2 Diagnoses Pulmonary edema J81.1 Bilateral inguinal hernia (BIH) K40.20 CAD (coronary artery disease) I25.10 Hypertension I10 Hyperlipidemia E78.5 Klebsiella infection A49.8 DVT prophylaxis Z29.9
--- NOTE | 2019-07-08 15:46 | Discharge Summary ---
Date of Service July 08, 2019 Principal Diagnosis bilateral inguinal hernia ventral hernia pulmonary edema Discharge Exam awake/alert Constitutional well developed and well nourished; no acute distress Respiratory normal respiratory effort Gastrointestinal (Abdomen) Inspection/Auscultation: + abdominal surgical incision (c/d/i with dermabond overtop; some ecchymosis shyam-supraumbilical incision) Percussion/Palpation: abdomen soft Discharge Data Allergies Allergy/AdvReac Type Severity Reaction Status Date / Time moxifloxacin Allergy Intermediate RASH Verified 07/07/19 06:04 heparin AdvReac Intermediate discolored Verified 07/07/19 06:04 skin; brown Consultations 07/07/19 10:19 Consult Cardiology Stat 07/07/19 11:02 Consult Hospitalist Routine Procedures Performed Operation Date: 07/07/19 07:00 Actual Procedures p Laparoscopic Bilateral Inguinal Hernia Repair with Mesh,(Bilateral) - Albino Lara DO s Open Incisional Hernia Repair with Mesh(Not Applicable) - Albino Lara DO Hospital Course (1) Bilateral inguinal hernia (BIH): This is a 74y M who presented to the [facility] on 07/07/19 for a planned laparoscopic bilateral inguinal hernia repair and an open ventral hernia repair with Dr. Lara. Please see op note for full details. Intraop patient was noted to have some frothy sputum in ETT, and there was concern for pulmonary edema, therefore patient was diuresed and he was admitted to the hospital for overnight observation. Both medicine and cardiology were consulted for further evaluation. Patient was in steep trendelenburg for majority of his procedure and this was the thought process for his etiology. Echo and troponins obtained were essentially normal. When on the nursing floor he had a calvert in place, diet was advanced as tolerated, pulmonary toilet worked upon, and pain managed with prn medications. On POD#1 patient was respirating well on room air. A CXR revealed resolution of his pulmonary edema. He responded well to diuresis the day prior and his calvert catheter was removed without issues. Patient tolerating a diet, surgical wounds c/d/i, and he overall felt clinically well. Cardiology recommended patient be discharged on his home medications with follow up scheduled as an outpatient. From a surgical standpoint he was provided postop instructions and was instructed to follow up in clinic within 2 weeks. Patient was deemed stable for discharge to home on POD#1 (2/14) with agreement from all following services. Patient expressed understanding of his plan. Total Time Total Time Spent Total Time Spent (In Minutes): 15 Discharge Plan Discharge Items Patient Disposition: Home - Self-Care Reason For Visit: Bilateral Inguinal Hernia; Incisinal Hernia; Diabe Discharge Diagnosis: bilateral inguinal hernia repair open ventral hernia repair Activity: Per Instructions section Lifting: No more than 10 pounds Bathing Comment: may shower. no soaking in tubs Exercise/Sports: Wait until after follow-up appointment Driving/Machine Use: do not resume driving while taking narcotics for pain Non-emergency contact: Surgeon Call non-emergency contact if: you have any medication questions, your symptoms worsen, your pain is not controlled, your pain is unusual for you, you have a fever, your temperature is above 101.5, your wound has increased redness, your wound has increased drainage and your wound pain has increased Follow-up/Referrals: Albino Levine CRNP [Primary Care Provider] - 07/11/19 3:00 pm (Follow up with Albino Levine is on Tuesday 07/11 @ 1015. Please arrive 15 minutes prior to appt time. If this appt does not fit your schedule please call [phone] to reschedule. [address] [facility] [address] [place]) Albino Lara, [Surgeon] - (Please call to schedule follow up in clinic within 2 weeks) Diet: Regular Addtl Attending Provider Instructions: Pending Studies at Discharge: No Stand-Alone Forms: [facility] Medications and DC Order Prescriptions: New hydrocodone-acetaminophen [[place]] 5-325 mg tablet 1 tab PO Q6H PRN (Reason: pain) Qty: 30 RF: 0 Continued cholecalciferol (vitamin D3) 2,000 unit tablet 2,000 units PO DAILY Qty: 30 RF: 0 PreserVision AREDS [id number] capsule 1 cap PO BID Qty: 60 RF: 2 atorvastatin 20 mg tablet 20 mg PO QPM Qty: 90 RF: 3 clopidogrel 75 mg tablet 75 mg PO QAM Qty: 30 RF: 5 lisinopril 2.5 mg tablet 2.5 mg PO QAM Qty: 30 RF: 5 metoprolol succinate 25 mg tablet extended release 24 hr 25 mg PO HS Qty: 30 RF: 5 cyanocobalamin (vitamin B-12) 1,000 mcg tablet 1,000 mcg PO QAM Qty: 30 RF: 5 magnesium 200 mg tablet 400 mg PO DAILY Qty: 30 RF: 5 cefadroxil 500 mg capsule 500 mg PO QAM RF: 0 Discharge Orders: Discharge Order (Routine); Ordered 07/08/19 Ordered By: Zenaida Franklin Admission Data Admit Date/Time: 07/07/19 09:32 Attending Provider: Albino Lara Admit Provider: Albino Lara Primary Care Provider: Albino Levine Other Providers: Toño Staton ; Shyann Ray Other Interventions: Discharge Summary Assessment (RN) Last Done: 07/08/19 11:39 DC Date/Time DO NOT enter until pt leaves facility: 07/08/19 13:17 Coding Level of Care Code D/C Day Management <30 mins Diagnoses Bilateral inguinal hernia (BIH) K40.20
== END 2019-07-08 13:17 | disposition home or self-care (01) ==
LOC: ASU 05:23 → 2W 05:23